=== PATIENT | male | born 1940 | race Caucasian/White ===

== ENCOUNTER → 2016-08-20 | Outpatient (CLI) | payer OTHER, BC ==
[~2016-08-20] VITALS: Ht 182.9 cm; Wt 114.0 kg
[~2016-08-20] MED LIST: ASPCH81 PO; AVDUNK PO; CLB100 PO; CMD75 PO; CRSUNK PO; DLCSR240 PO; DVN80 PO; GABA-113 PO; INDAPAMIDE PO; LATA0.009 OPB; LVTUNK PO; METO50TA7 PO; MULT-506 PO; NIAC1TAB59 PO; TIMO0.5S2 OPB; [UNRECOGNIZED DRUG - OTHER] PO
[2016-08-20 12:40] VITALS: BP 189/76; PULSE 60; Ht 182.9 cm; Wt 114.0 kg
== END | disposition home or self-care (01) ==
LOC: C.NEUR 11:59
PROVIDERS: ATTEND Internal Medicine Pulmonary Disease
DX: G47.30 Sleep apnea, unspecified (principal); I10 Essential (primary) hypertension

== ENCOUNTER → 2017-05-03 | Outpatient (CLI) | payer OTHER, BC ==
[~2017-05-03] VITALS: Ht 182.9 cm; Wt 111.4 kg
[~2017-05-03] MED LIST changes: -METO50TA7 PO; +METO50TA8 PO
[2017-05-03 13:36] VITALS: BP 166/91; PULSE 60; Ht 182.9 cm; Wt 111.4 kg
== END | disposition home or self-care (01) ==
LOC: C.NEUR 13:05
PROVIDERS: ATTEND Physician Assistant Medical
DX: G47.30 Sleep apnea, unspecified (principal); I63.9 Cerebral infarction, unspecified; I10 Essential (primary) hypertension

== ENCOUNTER 2017-08-14 18:26 | Inpatient (IN) | payer OTHER, BC ==
[~2017-08-14] VITALS: Ht 182.9 cm; Wt 109.0 kg
[2017-08-14] MEDS: AVODART~ORDER AWAITING ACTION SCH ×3 (08:00→23:25)
[2017-08-14] MEDS ORDERED: SODIUM CHLORIDE 0.9% 250ML 250 ML IV STA (19:29)
--- NOTE | 2017-08-14 19:30 | EMERGENCY ROOM VISIT NOTE ---
History Report prepared by Jl: Kaiser Lloyd Under the Supervision of: Dr. Ran Aguiar M.D. First contact with patient: 18:51 Chief Complaint: RECTAL BLEEDING Stated Complaint: COLONOSCOPY,POLYPS REMOVED,BLEEDING FROM RECTUM History of Present Illness The patient is a 77 year old male who presents to the Emergency Room with complaints of multiple episodes of rectal bleeding beginning today. The patient states that he had a colonoscopy done three days ago and had four polyps removed. He notes that he was feeling fine afterwards, but had four episodes of rectal bleeding today. He reports that he feels as though he has to have a bowel movement, but notes that whenever he goes, he just passes blood. He also complains of weakness and feeling tired beginning today. He denies any CP, SOB, nausea, vomiting, fever, chills, cough, congestion, abdominal pain, and urinary burning. He reports that he has not experienced any similar symptoms in the past. The patient states that he takes Plavix and aspirin. He notes that he has a past history of two strokes in 2005. He reports that he had his blood pressure medication changed a month ago, and has been having very high blood pressures and headaches since. Source of History: patient Onset: today Position: other (rectum) Quality: other (bleeding) Timing: other (multiple episodes) Associated Symptoms: + headache, + weakness, No fevers, No chills, No cough , No chest pain, No SOB, No nausea, No vomiting, No abdominal pain Note: The patient also complains of feeling fatigued and having high blood pressures over the last month. He also denies any congestion and urinary burning. Review of Systems See HPI for pertinent positives and negatives. A total of ten systems were reviewed and were otherwise negative. Past Medical & Surgical Medical Problems: (1) HTN (hypertension) (2) Lower GI bleed (3) Stroke Surgical Problems: (1) H/O colonoscopy Family History No pertinent family history stated. Social History Smoking Status: Never Smoker Marital Status: Housing Status: lives with family Occupation Status: retired Current/Historical Medications Scheduled Aspirin (Aspirin 81), 81 MG PO DAILY Calcium Carbonate-Vitamin D (Calcium + D), 1 TAB PO DAILY Clopidogrel (Plavix), 75 MG PO Q2D Dutasteride (Avodart), 0.5 MG PO DAILY Gabapentin (Neurontin), 300 MG PO TID Hydrochlorothiazide (Hctz), Unknown Dose PO DAILY Latanoprost (Latanoprost), 1 DROP OPB DAILY Levothyroxine Sodium (Synthroid), 150 MCG PO DAILY Multivitamin (Multivitamin), 1 TAB PO DAILY Omeprazole (Prilosec), 20 MG PO DAILY Rosuvastatin Calcium (Crestor), 10 MG PO DAILY Timolol Maleate (Timolol Gfs 0.5% (Generic For Timoptic-Xe)), 1 DROP OPB DAILY Valsartan (Diovan), 160 MG PO DAILY Allergies Coded Allergies: Fentanyl (Verified Allergy, Mild, ?RASH, 08/14/17) Propofol (Verified Allergy, Unknown, ?RASH, 08/14/17) Physical Exam Vital Signs Date Time Temp Pulse Resp B/P (MAP) Pulse Ox O2 Delivery O2 Flow Rate FiO2 08/14/17 20:23 69 20 194/79 97 Room Air 08/14/17 19:53 62 08/14/17 18:48 36.6 67 18 201/85 97 Room Air Physical Exam GENERAL: Awake, alert, fatigued appearing, in no distress HENT: Normocephalic, atraumatic. Oropharynx unremarkable. Mucous membranes are dry. EYES: Normal conjunctiva. Sclera non-icteric. NECK: Supple. No nuchal rigidity. FROM. No JVD. RESPIRATORY: Clear to auscultation. CARDIAC: Regular rate, normal rhythm. Extremities warm and well perfused. Pulses equal. ABDOMEN: Soft, non-distended. No tenderness to palpation. No rebound or guarding. No masses. RECTAL: To be determined. MUSCULOSKELETAL: Chest examination reveals no tenderness. The back is symmetrical on inspection without obvious abnormality. There is no CVA tenderness to palpation. No joint edema. LOWER EXTREMITIES: Calves are equal size bilaterally and non-tender. No discoloration. Scant lower extremity edema. NEURO: Normal sensorium. No sensory or motor deficits noted. SKIN: No rash or jaundice noted. Medical Decision & Procedures ER Provider Diagnostic Interpretation: Radiology results as stated below per my review and radiologist interpretation: CHEST ONE VIEW PORTABLE FINDINGS: The heart is enlarged. There is basilar interstitial thickening. There are no pleural effusions. There is no lobar consolidation.[ There is no free intraperitoneal air. IMPRESSION: Cardiomegaly with mild basilar interstitial thickening. Electronically signed by: Ebenezer So M.D. 08/14/2017 7:56 PM Dictated Date/Time: 08/14/2017 7:[address] ABD/PELVIS IV CONTRAST ONLY FINDINGS: Lower chest: The heart is normal in size and configuration, without pericardial effusion. The lung bases and pleural spaces are clear. Liver: There is mild hepatic steatosis. No focal masses are visualized. Gallbladder: Contracted Spleen: Normal in size and attenuation. Pancreas: Unremarkable. Adrenal glands: Unremarkable. Kidneys: There are multiple bilateral renal cysts the largest of which measures 9 cm on the left and 5.4 cm in the right Bowel: There are no transition zones to indicate bowel obstruction. There is a hyperdense focus within the rectosigmoid junction. This could represent enteric contents or acute hemorrhage. There is no evidence of acute diverticulitis. By history the appendix is surgically absent. Peritoneum: There is a 29 x 14 mm soft tissue nodule at the level of the umbilicus. There is no free intraperitoneal air. There is no evidence of ascites. Vasculature: There is a 33 mm infrarenal abdominal aortic aneurysm. There are bilateral renal artery stents. Adenopathy: Inguinal lymph nodes are at the upper limits of normal in size. Pelvic viscera: The bladder, and pelvic viscera are unremarkable. 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 IMPRESSION: 1. No evidence of bowel obstruction. No evidence of free air 2. Surgically absent appendix. No evidence of acute diverticulitis 3. 33 mm infrarenal abdominal aortic aneurysm 4. Bilateral renal cysts 5. Hyperdense focus at the level of the rectosigmoid junction. This could represent either acute hemorrhage or enteric contents. Endoscopic correlation could be obtained as deemed clinically indicated 6. Nonspecific 29 x 14 mm soft tissue nodule at the level the umbilicus Electronically signed by: Ebenezer So M.D. 08/14/2017 9:01 PM Dictated Date/Time: 08/14/2017 8:52 PM Laboratory Results 08/14/17 19:43 Red Blood Count 4.93, Mean Corpuscular Volume 92.7, Mean Corpuscular Hemoglobin 31.6, Mean Corpuscular Hemoglobin Concent 34.1, Mean Platelet Volume 10.1, Neutrophils (%) (Auto) 66.3, Lymphocytes (%) (Auto) 16.5, Monocytes (%) (Auto) 12.5, Eosinophils (%) (Auto) 4.3, Basophils (%) (Auto) 0.2, Neutrophils # (Auto ) 5.65, Lymphocytes # (Auto) 1.41, Monocytes # (Auto) 1.07, Eosinophils # (Auto ) 0.37, Basophils # (Auto) 0.02 08/14/17 19:43 Test 08/14/17 19:43 White Blood Count 8.54 K/uL (4.8-10.8) Red Blood Count 4.93 M/uL (4.7-6.1) Hemoglobin 15.6 g/dL (14.0-18.0) Hematocrit 45.7 % (42-52) Mean Corpuscular Volume 92.7 fL (80-100) Mean Corpuscular Hemoglobin 31.6 pg (25-34) Mean Corpuscular Hemoglobin Concent 34.1 g/dl (32-36) Platelet Count 212 K/uL (130-400) Mean Platelet Volume 10.1 fL (7.4-10.4) Neutrophils (%) (Auto) 66.3 % Lymphocytes (%) (Auto) 16.5 % Monocytes (%) (Auto) 12.5 % Eosinophils (%) (Auto) 4.3 % Basophils (%) (Auto) 0.2 % Neutrophils # (Auto) 5.65 K/uL (1.4-6.5) Lymphocytes # (Auto) 1.41 K/uL (1.2-3.4) Monocytes # (Auto) 1.07 K/uL (0.11-0.59) Eosinophils # (Auto) 0.37 K/uL (0-0.5) Basophils # (Auto) 0.02 K/uL (0-0.2) RDW Standard Deviation 45.5 fL (36.4-46.3) RDW Coefficient of Variation 13.3 % (11.5-14.5) Immature Granulocyte % (Auto) 0.2 % Immature Granulocyte # (Auto) 0.02 K/uL (0.00-0.02) Prothrombin Time 10.7 SECONDS (9.0-12.0) Prothromb Time International Ratio 1.0 (0.9-1.1) Anion Gap 8.0 mmol/L (3-11) Est Creatinine Clear Calc Drug Dose 62.6 ml/min Estimated GFR () 63.3 Estimated GFR (Non- 54.7 BUN/Creatinine Ratio 11.0 (10-20) Lactic Acid Level 1.4 mmol/L (0.4-2.0) Calcium Level 9.2 mg/dl (8.5-10.1) Magnesium Level 1.9 mg/dl (1.8-2.4) Total Bilirubin 0.7 mg/dl (0.2-1) Direct Bilirubin 0.2 mg/dl (0-0.2) Aspartate Amino Transf (AST/SGOT) 22 U/L (15-37) Alanine Aminotransferase (ALT/SGPT) 27 U/L (12-78) Alkaline Phosphatase 105 U/L (45-117) Total Protein 7.7 gm/dl (6.4-8.2) Albumin 3.9 gm/dl (3.4-5.0) Lipase 111 U/L (73-393) Date/Time Source Procedure Growth Status 08/14/17 20:00 Stool C.difficile Toxin B Gene (PCR) - Final No C. difficile toxin B gene detected Complete Laboratory results reviewed by me Medications Administered Medications (Trade) Dose Ordered Sig/Yanelis Route Start Time Stop Time Status Last Admin Dose Admin Sodium Chloride 250 ml @ 999 mls/hr Q16M STAT IV 08/14/17 19:29 08/14/17 19:44 DC 08/14/17 19:29 999 MLS/HR Gabapentin (Neurontin Cap) 300 mg TID PO 08/14/17 21:00 09/13/17 20:59 08/14/17 23:42 300 MG ECG Per My Interpretation Indication: weakness Rate (beats per minute): 62 Rhythm: normal sinus Findings: no acute ischemic change, no ectopy, other (Left ventricular hypertrophy with repolarization abnormality) ED Course 1919: The patient was evaluated in room B3. A complete history and physical exam was performed. 2003: I performed a rectal exam on the patient. His exam shows gross red blood per rectum, no hemorrhoids, and no melena. 2022: Upon reexamination, the patient was stable. I discussed the test results and treatment plan with him. Discussed the patient's case with Dr. Barahona - Hospitalist, APRIL. The patient will be evaluated for further management. Medical Decision I reviewed the patient's past medical history, medications, and the nursing notes as described above. Differential diagnosis: Etiologies such as diverticulosis, AVM, coagulopathy, colitis, inflammatory bowel disease, malignancy, Danna-Crews tear, esophagitis, peptic ulcer disease , variceal bleed, gastritis, epistaxis, fissure, hemorrhoids, as well as others were entertained. The patient is a 77-year-old gentleman with a past medical history of prior stroke with no residual deficits on Plavix and aspirin, hypertension who presents emergency department with red blood per rectum starting this morning after having a colonoscopy on with multiple colonic polyps removed, performed by Pravin Parkinson, per hpi. Of note the patient reports that he noticed the bleeding first this morning however thought it would resolve and so went out to lunch with his family to red lobster for his birthday but then had additional episodes and so he came to the ED. On arrival patient is fatigued appearing but no acute distress, afebrile stable vital signs. On exam the patient has gross red blood per rectum without melena and no appreciable hemorrhoids. H/H equals 15/45. Chemistry without any evidence of acidosis. Lactate within normal limits. CT abdomen pelvis ordered and pending. Given the patient's HCT of 45 we will continue to monitor closely given his rectal bleeding to initiate transfusion if needed. Patient remaining hemodynamically and clinically stable. Case discussed with [facility] admitting team who will evaluate the patient for admission. Medication Reconcilliation Current Medication List: was personally reviewed by me Blood Pressure Screening Patient's blood pressure: Elevated blood pressure Elevated blood pressure will be monitored by hospitalist. Consults Time Called: 2019 Consulting Physician: Dr. Drummond - Mileist, [facility] Returned Call: 2022 I discussed the patient with Dr. Drummond. He will evaluate the patient for further treatment. Impression Primary Impression: GI bleed Scribe Attestation The scribe's documentation has been prepared under my direction and personally reviewed by me in its entirety. I confirm that the note above accurately reflects all work, treatment, procedures, and medical decision making performed by me. Departure Information Dispostion Being Evaluated By Hospitalist Atul Mayorga MD (PCP) Patient Instructions My [facility]
[2017-08-14] MEDS ORDERED: OPTIRAY 320 IV PRN (19:45)
[2017-08-14] MEDS ORDERED: LEVO150T PO (19:52)
[2017-08-14] MEDS ORDERED: CRS/10 PO (19:52)
[2017-08-14] MEDS ORDERED: ASPI-435 PO (19:52)
[2017-08-14] MEDS ORDERED: DUTA0.5C PO (19:52)
[2017-08-14] MEDS ORDERED: DVN/160 PO (19:52)
[2017-08-14] MEDS ORDERED: XLTOPS OPB (19:52)
[2017-08-14] MEDS ORDERED: TMPXEOPS OPB (19:52)
[2017-08-14] MEDS ORDERED: CLOP1TAB15 PO (19:53)
[2017-08-14] MEDS ORDERED: HYDR12.56 PO (19:53)
[2017-08-14] MEDS ORDERED: CALC600T9 PO (19:53)
[2017-08-14] MEDS ORDERED: OMEP20CA9 PO (19:53)
[2017-08-14 19:55] LABS: BASO % 0.2 %; BASO ABS # 0.02 K/uL (0-0.2); EOS % 4.3 %; EOS ABS # 0.37 K/uL (0-0.5); HEMATOCRIT 45.7 % (42-52); HEMOGLOBIN 15.6 g/dL (14.0-18.0); IG# 0.02 K/uL (0.00-0.02); LYMPH % 16.5 %; LYMPH ABS # 1.41 K/uL (1.2-3.4); MEAN CELL VOLUME 92.7 fL (80-100); MEAN CORPUSCULAR HEMOGLOBIN 31.6 pg (25-34); MEAN CORPUSCULAR HGB CONC 34.1 g/dl (32-36); MEAN PLATELET VOLUME 10.1 fL (7.4-10.4); MONO % 12.5 %; MONO ABS # 1.07 K/uL (0.11-0.59); NEUT % 66.3 %; NEUT ABS # 5.65 K/uL (1.4-6.5); PLATELET COUNT 212 K/uL (130-400); RED CELL DISTRIBUTION WIDTH CV 13.3 % (11.5-14.5); RED CELL DISTRIBUTION WIDTH SD 45.5 fL (36.4-46.3); WHITE BLOOD COUNT 8.54 K/uL (4.8-10.8)
--- NOTE | 2017-08-14 19:57 | DIAGNOSTIC IMAGING REPORT ---
CHEST ONE VIEW PORTABLE CLINICAL HISTORY: Pain, radiating to the abdomen. COMPARISON STUDY: June 2006 FINDINGS: The heart is enlarged. There is basilar interstitial thickening. There are no pleural effusions. There is no lobar consolidation.[ There is no free intraperitoneal air. IMPRESSION: Cardiomegaly with mild basilar interstitial thickening. Electronically signed by: Ebenezer So M.D. 08/14/2017 7:56 PM Dictated Date/Time: 08/14/2017 7:55 PM
[2017-08-14 20:16] LABS: ALBUMIN 3.9 gm/dl (3.4-5.0); CALCIUM 9.2 mg/dl (8.5-10.1); CREATININE 1.26 mg/dl (0.60-1.40); POTASSIUM 3.2 mmol/L (3.5-5.1); TOTAL PROTEIN 7.7 gm/dl (6.4-8.2)
[2017-08-14] MEDS ORDERED: ACETAMINOPHEN 325 MG TAB PO PRN (21:00)
[2017-08-14] MEDS ORDERED: ONDANSETRON INJ 2 MG/ML 2 ML VIAL IV PRN (21:00)
--- NOTE | 2017-08-14 21:03 | DIAGNOSTIC IMAGING REPORT ---
CT ABD/PELVIS IV CONTRAST ONLY CLINICAL HISTORY: Hematochezia COMPARISON STUDY: None. TECHNIQUE: Following the IV administration of 92 mL of Optiray-320, CT scan of the abdomen and pelvis was performed from the lung bases to the proximal femurs. Images are reviewed in the axial, sagittal, and coronal planes. IV contrast was administered without complication. A dose lowering technique was utilized adhering to the principles of ALARA. CT DOSE: 1105.62 mGy.cm FINDINGS: Lower chest: The heart is normal in size and configuration, without pericardial effusion. The lung bases and pleural spaces are clear. Liver: There is mild hepatic steatosis. No focal masses are visualized. Gallbladder: Contracted Spleen: Normal in size and attenuation. Pancreas: Unremarkable. Adrenal glands: Unremarkable. Kidneys: There are multiple bilateral renal cysts the largest of which measures 9 cm on the left and 5.4 cm in the right Bowel: There are no transition zones to indicate bowel obstruction. There is a hyperdense focus within the rectosigmoid junction. This could represent enteric contents or acute hemorrhage. There is no evidence of acute diverticulitis. By history the appendix is surgically absent. Peritoneum: There is a 29 x 14 mm soft tissue nodule at the level of the umbilicus. There is no free intraperitoneal air. There is no evidence of ascites. Vasculature: There is a 33 mm infrarenal abdominal aortic aneurysm. There are bilateral renal artery stents. Adenopathy: Inguinal lymph nodes are at the upper limits of normal in size. Pelvic viscera: The bladder, and pelvic viscera are unremarkable. 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 IMPRESSION: 1. No evidence of bowel obstruction. No evidence of free air 2. Surgically absent appendix. No evidence of acute diverticulitis 3. 33 mm infrarenal abdominal aortic aneurysm 4. Bilateral renal cysts 5. Hyperdense focus at the level of the rectosigmoid junction. This could represent either acute hemorrhage or enteric contents. Endoscopic correlation could be obtained as deemed clinically indicated 6. Nonspecific 29 x 14 mm soft tissue nodule at the level the umbilicus Electronically signed by: Ebenezer So M.D. 08/14/2017 9:01 PM Dictated Date/Time: 08/14/2017 8:52 PM
--- NOTE | 2017-08-14 21:14 | History and Physical ---
History & Physical Date & Time of Service: Aug 14, 2017 at 21:06 Chief Complaint: Colonoscopy,Polyps Removed,Bleeding From Rectum Primary Care Physician: Atul Dickson MD History of Present Illness Source: patient, hospital records, other 77 y/o M Hx CVA, carotid disease, HTN, HPL, hypothyroidism, BPH, glaucoma. The pt had a colonoscopy with removal of 4 polyps 3 days prior. He had no symptoms until today when he began passing bright red blood per rectum. He has had 4 or more BMs. He feels as though he has to defecate and then only passes blood. He describes some weakness. He denies any lightheadedness, SOB, CP, nausea/ vomiting, abdominal pain or fevers. Initial Hb is within normal limits. Labs are otherwise notable for a low potassium. Past Medical/Surgical History 1) L carotid stenosis - stented 2) CVA - impaired peripheral vision in the L eye - CVA occurred to to plaque dislodgement following carotid stenting 3) Hypothyroidism 4) BPH 5) Glaucoma 6) HTN 7) HPL 8) Colon polyps 9) GI bleed following polypectomy 08/2017 10) CAD - states he mat have had a silent IL in 2005 - cath in 2009 on record reports nonocclusive disease excepting 90% stenosis of branch vessel which was not amenable to stenting 11) Renal artery stenosis Surgery: 1) L carotid stent 2) BL renal artery stenting 3) Thyroidectomy Family History Father owing to colon CA age 53 Mother due to an IL age 68 Social History Quit smoking 3 years ago but now vapes instead - 40+ pack yr history - does not drink - retired from heavy equipment operation Smoking Status: Former Smoker Smokeless Tobacco Use: Yes Alcohol Use: none Marital Status: Occupational Status: retired Immunizations History of Influenza Vaccine: Yes History of Tetanus Vaccine?: yes,< 10 yrs.unknown when History of Pneumococcal: Unknown History of Hepatitis B Vaccine: Yes Allergies Coded Allergies: Fentanyl (Verified Allergy, Mild, ?RASH, 08/14/17) Propofol (Verified Allergy, Unknown, ?RASH, 08/14/17) Home Medications Scheduled Aspirin (Aspirin 81), 81 MG PO DAILY Calcium Carbonate-Vitamin D (Calcium + D), 1 TAB PO DAILY Clopidogrel (Plavix), 75 MG PO Q2D Dutasteride (Avodart), 0.5 MG PO DAILY Gabapentin (Neurontin), 300 MG PO TID Hydrochlorothiazide (Hctz), Unknown Dose PO DAILY Latanoprost (Latanoprost), 1 DROP OPB DAILY Levothyroxine Sodium (Synthroid), 150 MCG PO DAILY Multivitamin (Multivitamin), 1 TAB PO DAILY Omeprazole (Prilosec), 20 MG PO DAILY Rosuvastatin Calcium (Crestor), 10 MG PO DAILY Timolol Maleate (Timolol Gfs 0.5% (Generic For Timoptic-Xe)), 1 DROP OPB DAILY Valsartan (Diovan), 160 MG PO DAILY Review of Systems Constitutional: No fever, No chills, No sweats Eyes: No worsening of vision ENT: No hearing loss, No unusual epistaxis, No nasal symptoms Respiratory: No cough, No sputum, No wheezing Cardiovascular: No chest pain, No orthopnea, No PND Abdomen: + GI bleeding, No pain, No nausea, No vomiting Genitourinary - Male: No hematuria, No dysuria Neurologic: + problem reported (chronic impaired vision in L eye), No memory loss, No weakness Psychiatric: No depression symptoms Endocrine: No fatigue Hematologic / Lymphatic: No abnormal bleeding/bruising Physical Exam Vital Signs Date Time Temp Pulse Resp B/P (MAP) Pulse Ox O2 Delivery O2 Flow Rate FiO2 08/14/17 19:53 62 08/14/17 18:48 36.6 67 18 201/85 97 Room Air General Appearance: WD/WN, no apparent distress Head: normocephalic Eyes: normal inspection ENT: normal ENT inspection, pharynx normal Neck: supple, no JVD Respiratory/Chest: chest non-tender, lungs clear, normal breath sounds Cardiovascular: regular rate, rhythm Abdomen/GI: normal bowel sounds, non tender, soft Back: normal inspection, no CVA tenderness Extremities/Musculoskelatal: normal inspection, no calf tenderness, normal capillary refill 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, no motor/sensory deficits, alert, oriented x 3 Skin: normal color Diagnostics Laboratory Results Results Past 24 Hours Test 08/14/17 19:43 Range/Units White Blood Count 8.54 4.8-10.8 K/uL Red Blood Count 4.93 4.7-6.1 M/uL Hemoglobin 15.6 14.0-18.0 g/dL Hematocrit 45.7 42-52 % Mean Corpuscular Volume 92.7 80-100 fL Mean Corpuscular Hemoglobin 31.6 25-34 pg Mean Corpuscular Hemoglobin Concent 34.1 32-36 g/dl Platelet Count 212 130-400 K/uL Mean Platelet Volume 10.1 7.4-10.4 fL Neutrophils (%) (Auto) 66.3 % Lymphocytes (%) (Auto) 16.5 % Monocytes (%) (Auto) 12.5 % Eosinophils (%) (Auto) 4.3 % Basophils (%) (Auto) 0.2 % Neutrophils # (Auto) 5.65 1.4-6.5 K/uL Lymphocytes # (Auto) 1.41 1.2-3.4 K/uL Monocytes # (Auto) 1.07 0.11-0.59 K/uL Eosinophils # (Auto) 0.37 0-0.5 K/uL Basophils # (Auto) 0.02 0-0.2 K/uL RDW Standard Deviation 45.5 36.4-46.3 fL RDW Coefficient of Variation 13.3 11.5-14.5 % Immature Granulocyte % (Auto) 0.2 % Immature Granulocyte # (Auto) 0.02 0.00-0.02 K/uL Prothrombin Time 10.7 9.0-12.0 SECONDS Prothromb Time International Ratio 1.0 0.9-1.1 Sodium Level 142 136-145 mmol/L Potassium Level 3.2 3.5-5.1 mmol/L Chloride Level 104 98-107 mmol/L Carbon Dioxide Level 30 21-32 mmol/L Anion Gap 8.0 3-11 mmol/L Blood Urea Nitrogen 14 7-18 mg/dl Creatinine 1.26 0.60-1.40 mg/dl Est Creatinine Clear Calc Drug Dose 62.6 ml/min Estimated GFR () 63.3 Estimated GFR (Non- 54.7 BUN/Creatinine Ratio 11.0 10-20 Random Glucose 109 70-99 mg/dl Lactic Acid Level 1.4 0.4-2.0 mmol/L Calcium Level 9.2 8.5-10.1 mg/dl Magnesium Level 1.9 1.8-2.4 mg/dl Total Bilirubin 0.7 0.2-1 mg/dl Direct Bilirubin 0.2 0-0.2 mg/dl Aspartate Amino Transf (AST/SGOT) 22 15-37 U/L Alanine Aminotransferase (ALT/SGPT) 27 12-78 U/L Alkaline Phosphatase 105 45-117 U/L Total Protein 7.7 6.4-8.2 gm/dl Albumin 3.9 3.4-5.0 gm/dl Lipase 111 73-393 U/L Microbiology Results 08/14/17 C.difficile Toxin B Gene (PCR), Received Pending Impression Assessment and Plan 77 y/o M Hx CVA, carotid disease, HTN, HPL, hypothyroidism, BPH, glaucoma. The pt had a colonoscopy with removal of 4 polyps 3 days prior. He had no symptoms until today when he began passing bright red blood per rectum. He has had 4 or more BMs. He feels as though he has to defecate and then only passes blood. He describes some weakness. He denies any lightheadedness, SOB, CP, nausea/ vomiting, abdominal pain or fevers. Initial Hb is within normal limits. Labs are otherwise notable for a low potassium. 1) Lower GI bleed follows removal of 4 polyps 3 days earlier. No anemia is present - pt is asymptomatic. We will monitor overnight with serial Hbs. We will prep the pt for potential colonoscopy if needed following GI evaluation AM. He will be kept NPO and we have held his ASA and Plavix. 2) Low K - IVF and electrolyte replacement provided. 3) HTN/HPL - can continue Diovan and HCTZ 4) CAD and carotid disease - we should restart his ASA and Plavix at the earliest possible time. We will continue Crestor 5) BPH - cont Dutasteride 6) Hypothyroidism - cont Synthroid 7) Glaucoma - continue prescribed meds Full code - SCDs Total time for this admit including review of labs, meds, imaging, records - discussion with pt. family and ER attending - 38 min Resuscitation Status VTE Prophylaxis Will order VTE Prophylaxis: Yes Reason for no VTE drug order: Treatment not indicated Reason no Mechanical VTE Order: Treatment not indicated, Contraindicated
[2017-08-14] MEDS ORDERED: IV FLUIDS COMPLETED PRN (21:15)
[2017-08-14 22:20] VITALS: BP 177/77; PULSE 57; TEMP 36.8; Ht 182.9 cm; Wt 109.0 kg
[2017-08-14] MEDS ORDERED: POTASSIUM CHLORIDE PWD 20 MEQ PACK PO ONE (22:45)
[2017-08-14] MEDS ORDERED: LAVAGE SOLUTION 4000ML PO SCH (23:00)
[2017-08-14] MEDS: D5NSS + 20MEQ KCL 1,000 ML IV SCH (23:42)
[2017-08-14] MEDS: GABAPENTIN 300 MG CAP PO SCH (23:42)
[2017-08-15] VITALS (9 sets, daily range): BP systolic 157–190; BP diastolic 54–92; PULSE 62–106; TEMP 36.4–37.1; O2SAT 93–98
[2017-08-15 04:40] LABS: CALCIUM 7.9 mg/dl (8.5-10.1); CREATININE 1.21 mg/dl (0.60-1.40); POTASSIUM 3.6 mmol/L (3.5-5.1)
[2017-08-15] MEDS: LEVOTHYROXINE 150 MCG TAB PO SCH (06:11)
[2017-08-15] MEDS: AVODART~ORDER AWAITING ACTION SCH ×3 (06:11→23:29)
[2017-08-15] MEDS: VALSARTAN 80 MG TAB PO SCH (07:40)
[2017-08-15] MEDS: TIMOLOL GFS 0.5% OPH SOLN 74 DROPS/5 ML BTL OPB SCH (07:40)
[2017-08-15] MEDS: D5NSS + 20MEQ KCL 1,000 ML IV SCH (07:40)
[2017-08-15] MEDS: ROSUVASTATIN CALCIUM 10 MG TAB PO SCH (07:41)
[2017-08-15] MEDS: GABAPENTIN 300 MG CAP PO SCH ×3 (07:41→20:51)
[2017-08-15] MEDS: PANTOprazole SOD 40 MG TAB PO SCH (07:41)
--- NOTE | 2017-08-15 12:26 | Gastrointestinal Consultation ---
Gastrointestinal Consultation Date of Consultation: Aug 15, 2017 Attending Physician: Gurmeet Barahona MD Consulting Physician: Emil Briggs MD Reason for Consultation: Post polypectomy bleed History of Present Illness Patient is a 77 year old male on Plavix every other day and 81mg aspirin daily for a hx of CVA with carotid stenting, admitted with a one day hx of painless rectal bleeding. He reports having a colonoscopy on in [place] for a hx of colon polyps. Four polyps were removed. He states that his plavix and aspirin were not held prior to the procedure. He reports multiple episodes of BRBPR that started yesterday afternoon. He denies any abdominal pain, n/v. Blood work shows a Hgb of 13.1 (down from 15.6). CT scan shows a ? hemorrhage at the R/S junction. He has been started on a bowel prep, but has had approximately half of this, and stopped on his own this morning due to significant diarrhea. Last glass was at [address] scan: IMPRESSION: 1. No evidence of bowel obstruction. No evidence of free air 2. Surgically absent appendix. No evidence of acute diverticulitis 3. 33 mm infrarenal abdominal aortic aneurysm 4. Bilateral renal cysts 5. Hyperdense focus at the level of the rectosigmoid junction. This could represent either acute hemorrhage or enteric contents. Endoscopic correlation could be obtained as deemed clinically indicated 6. Nonspecific 29 x 14 mm soft tissue nodule at the level the umbilicus Past Medical/Surgical History Medical Problems: (1) GI bleed Status: Acute Past Medical History: HTN, CVA, Hypothyroidism Past Surgical History: carotid stenting, mastoid surgery Social History Smoking Status: Former Smoker Marital Status: Housing Status: lives with family Occupation Status: retired Allergies Coded Allergies: Fentanyl (Verified Allergy, Mild, ?RASH, 08/14/17) Propofol (Verified Allergy, Unknown, ?RASH, 08/14/17) Current Medications Home Meds and Scripts Medications Dose Route/Sig Max Daily Dose Days Date Category Dose Instructions Hctz (Hydrochlorothiazide) 12.5 Mg Cap Unknown Dose PO DAILY 08/14/17 Reported Unsure of the dose, but believes it to be a low dose. Calcium + D (Calcium Carbonate-Vitamin D) 1 Tab Tab 1 Tab PO DAILY 08/14/17 Reported Plavix (Clopidogrel Bisulfate) 75 Mg Tab 75 Mg PO Q2D 08/14/17 Reported Prilosec (Omeprazole) 20 Mg Cap 20 Mg PO DAILY 08/14/17 Reported Crestor (Rosuvastatin Calcium) 10 Mg Tab 10 Mg PO DAILY 08/14/17 Reported Avodart (Dutasteride) 0.5 Mg Cap 0.5 Mg PO DAILY 08/14/17 Reported Synthroid (Levothyroxine Sodium) 150 Mcg Tab 150 Mcg PO DAILY 08/14/17 Reported Latanoprost 37 Drops/2.5 Ml Soln 1 Drop OPB DAILY 08/14/17 Reported Timolol Gfs 0.5% (Generic For Timoptic-Xe) (Timolol Maleate) 74 Drops/5 Ml Soln 1 Drop OPB DAILY 08/14/17 Reported Aspirin 81 (Aspirin) 81 Mg Tab 81 Mg PO DAILY 08/14/17 Reported Diovan (Valsartan) 160 Mg Tab 160 Mg PO DAILY 08/14/17 Reported Neurontin (Gabapentin) 300 Mg Cap 300 Mg PO TID 08/13/09 Reported Multivitamin (Multivitamins) Tab 1 Tab PO DAILY 06/07/06 Reported Review of Systems Constitutional: No fever, No chills Eyes: No worsening of vision, No eye pain ENT: No hearing loss, No sore throat, No trouble swallowing Respiratory: No cough, No wheezing, No shortness of breath Cardiac: No chest pain Abdomen: + see HPI Musculoskeletal: No joint pain, No muscle pain Male : No dysuria Psych: No problem reported Endo: No excessive thirst, No excessive urination Skin: No rash, No itch Physical Exam Date Time Temp Pulse Resp B/P (MAP) Pulse Ox O2 Delivery O2 Flow Rate FiO2 08/15/17 08:00 Room Air 08/15/17 07:56 36.7 67 18 187/89 (121) 93 08/15/17 05:30 37.1 66 16 164/54 (90) 95 Room Air 08/15/17 01:41 62 173/82 (112) 08/15/17 00:24 36.8 66 20 190/81 (117) 95 Room Air 08/15/17 00:00 Room Air 08/14/17 22:20 36.8 57 16 177/77 Room Air 08/14/17 21:30 65 18 184/84 97 Room Air 08/14/17 20:23 69 20 194/79 97 Room Air 08/14/17 19:53 62 08/14/17 18:48 36.6 67 18 201/85 97 Room Air General Appearance: no apparent distress Eyes: normal inspection Neck: supple Respiratory/Chest: lungs clear, normal breath sounds, no respiratory distress Cardiovascular: regular rate, rhythm, no edema Abdomen: normal bowel sounds, soft, + tenderness (mild, diffuse) Extremities: non-tender, + pedal edema (trace) Neurologic/Psych: alert, normal mood/affect Skin: normal color, no jaundice, warm/dry Laboratory Results Last 24 Hours Test 08/14/17 19:43 08/14/17 23:14 08/15/17 03:55 08/15/17 07:00 White Blood Count 8.54 K/uL Red Blood Count 4.93 M/uL Hemoglobin 15.6 g/dL 15.1 g/dL 13.0 g/dL Hematocrit 45.7 % Mean Corpuscular Volume 92.7 fL Mean Corpuscular Hemoglobin 31.6 pg Mean Corpuscular Hemoglobin Concent 34.1 g/dl Platelet Count 212 K/uL Mean Platelet Volume 10.1 fL Neutrophils (%) (Auto) 66.3 % Lymphocytes (%) (Auto) 16.5 % Monocytes (%) (Auto) 12.5 % Eosinophils (%) (Auto) 4.3 % Basophils (%) (Auto) 0.2 % Neutrophils # (Auto) 5.65 K/uL Lymphocytes # (Auto) 1.41 K/uL Monocytes # (Auto) 1.07 K/uL Eosinophils # (Auto) 0.37 K/uL Basophils # (Auto) 0.02 K/uL RDW Standard Deviation 45.5 fL RDW Coefficient of Variation 13.3 % Immature Granulocyte % (Auto) 0.2 % Immature Granulocyte # (Auto) 0.02 K/uL Prothrombin Time 10.7 SECONDS Prothromb Time International Ratio 1.0 Sodium Level 142 mmol/L 142 mmol/L Potassium Level 3.2 mmol/L 3.6 mmol/L Chloride Level 104 mmol/L 104 mmol/L Carbon Dioxide Level 30 mmol/L 31 mmol/L Anion Gap 8.0 mmol/L 7.0 mmol/L Blood Urea Nitrogen 14 mg/dl 16 mg/dl Creatinine 1.26 mg/dl 1.21 mg/dl Est Creatinine Clear Calc Drug Dose 62.6 ml/min 65.2 ml/min Estimated GFR () 63.3 66.5 Estimated GFR (Non- 54.7 57.4 BUN/Creatinine Ratio 11.0 13.5 Random Glucose 109 mg/dl 113 mg/dl Lactic Acid Level 1.4 mmol/L Calcium Level 9.2 mg/dl 7.9 mg/dl Magnesium Level 1.9 mg/dl 1.7 mg/dl Total Bilirubin 0.7 mg/dl Direct Bilirubin 0.2 mg/dl Aspartate Amino Transf (AST/SGOT) 22 U/L Alanine Aminotransferase (ALT/SGPT) 27 U/L Alkaline Phosphatase 105 U/L Total Protein 7.7 gm/dl Albumin 3.9 gm/dl Lipase 111 U/L Urine Color YELLOW Urine Appearance CLEAR Urine pH 7.5 Urine Specific [place] 1.026 Urine Protein NEG Urine Glucose (UA) NEG Urine Ketones NEG Urine Occult Blood NEG Urine Nitrite NEG Urine Bilirubin NEG Urine Urobilinogen NEG Urine Leukocyte Esterase NEG Test 08/15/17 08:14 Hemoglobin 13.1 g/dL Impression Patient is a 77 year old male with a hx of CVA and carotid stenting, on plavix and aspirin, s/p colonoscopy with 4 polyps removed this past . Plavix and aspirin were not held prior to the procedure. Admitted with rectal bleeding that started on Tuesday. Plan Patient stopped drinking the colon prep on his own after only about half the bottle consumed. Will proceed with colonoscopy vs flex sig for evaluation of post polypectomy bleed. Hgb is stable at 13 currently. Would continue to monitor and transfuse if needed. Attg add: I interviewed and examined pt, reviewed chart and labs. Pt on dual anti plt therapy admit with rectal bleeding after cscopy + polypectomy last week. Hypertensive, not anemic, bleeding has stopped. CT showed ? hyperdense lesion at recto sigmoid. Prior cscopy report not available. Post-polyp bleed -- Will plan cscopy today.
[2017-08-15] MEDS ORDERED: LIDOCAINE HCL 2% 2 ML VIAL (20MG/ML) ONE (15:11)
[2017-08-15] MEDS ORDERED: PROPOFOL IV EMULSION 10 MG/ML 20 ML VIAL ONE ×2 (15:11→15:58)
--- NOTE | 2017-08-15 15:48 | Hospitalist Progress Note ---
Hospitalist Progress Note Date of Service Aug 15, 2017. Subjective Pt evaluation today including: conversation w/ patient, conversation w/ family , physical exam, chart review, lab review, review of studies, conversation w/ crop consultant ([facility]), review of inpatient medication list Patient reports continued BRBPR since admission. Hemoglobin stable. Slight drop from admission but may be element of dilution. Patient is for a colonoscopy today to assess bleed. Was only able to tolerate about half the prep Per discussion with and patient, it appears that he was not instructed to hold his Plavix/ASA prior to colonoscopy and did have 4 polyps removed Initial colonoscopy was performed in [place]. Discussed his blood pressures. states he was on multiple medications that were taken off but does report his BP has been trending back up and complaining of headaches. May benefit from returning to previous regimen. Will use PRN Hydralazine at this point. Constitutional: No fever, No chills, No fatigue Respiratory: No cough, No shortness of breath Cardiovascular: No chest pain Abdomen: + pain (only with deep palpation), + GI bleeding (BRBPR), No nausea , No vomiting Musculoskeletal: No swelling, No calf pain Male : No dysuria Medications Current Inpatient Medications Medications (Trade) Dose Ordered Sig/Yanelis Route Start Time Stop Time Status Last Admin Dose Admin Ioversol (Optiray 320) 100 ml UD PRN IV 08/14/17 19:45 08/18/17 19:44 Acetaminophen (Tylenol Tab) 650 mg Q4H PRN PO 08/14/17 21:00 09/13/17 20:59 Ondansetron HCl (Zofran Inj) 4 mg Q6H PRN IV 08/14/17 21:00 09/13/17 20:59 Gabapentin (Neurontin Cap) 300 mg TID PO 08/14/17 21:00 09/13/17 20:59 08/15/17 07:41 300 MG Latanoprost (Xalatan Oph Soln) 1 drops HS OPB 08/15/17 21:00 09/14/17 20:59 Levothyroxine Sodium (Synthroid Tab) 150 mcg DAILYBB PO 08/15/17 06:30 09/14/17 06:29 08/15/17 06:11 150 MCG Rosuvastatin Calcium (Crestor Tab) 10 mg DAILY PO 08/15/17 09:00 8/8/18 08:59 08/15/17 07:41 10 MG Timolol Maleate (Timoptic-Xe 0.5% Oph Soln) 1 drops DAILY OPB 08/15/17 09:00 09/14/17 08:59 08/15/17 07:40 1 DROPS Valsartan (Diovan Tab) 160 mg DAILY PO 08/15/17 09:00 09/14/17 08:59 08/15/17 07:40 160 MG Miscellaneous Information (Order Awaiting Action) 1 ea QS N/A 08/14/17 08:00 09/13/17 07:59 Pantoprazole Sodium (Protonix Tab) 40 mg QAM PO 08/15/17 09:00 09/14/17 08:59 08/15/17 07:41 40 MG Miscellaneous (Iv Fluids Completed) 1 ea PRN PRN N/A 08/14/17 21:15 08/14/18 21:14 Potassium Chloride/Dextrose/ Sod Cl 1,000 ml @ 100 mls/hr Q10H IV 08/14/17 22:45 08/15/17 18:44 08/15/17 07:40 100 MLS/HR Objective Vital Signs Date Time Temp Pulse Resp B/P (MAP) Pulse Ox O2 Delivery O2 Flow Rate FiO2 08/15/17 15:12 36.6 59 20 203/91 (128) 99 Room Air 08/15/17 11:51 36.6 64 16 189/86 (120) 98 08/15/17 08:00 Room Air 08/15/17 07:56 36.7 67 18 187/89 (121) 93 08/15/17 05:30 37.1 66 16 164/54 (90) 95 Room Air 08/15/17 01:41 62 173/82 (112) 08/15/17 00:24 36.8 66 20 190/81 (117) 95 Room Air 08/15/17 00:00 Room Air 08/14/17 22:20 36.8 57 16 177/77 Room Air 08/14/17 21:30 65 18 184/84 97 Room Air 08/14/17 20:23 69 20 194/79 97 Room Air 08/14/17 19:53 62 08/14/17 18:48 36.6 67 18 201/85 97 Room Air Physical Exam General Appearance: WD/WN, no apparent distress Eyes: sclerae normal ENT: hearing grossly normal Neck: supple, no JVD, trachea midline Respiratory/Chest: lungs clear, normal breath sounds, no respiratory distress, no accessory muscle use Cardiovascular: regular rate, rhythm, no gallop, no murmur Abdomen: normal bowel sounds, non tender, soft Extremities: no pedal edema, no calf tenderness Neurologic/Psychiatric: alert, oriented x 3 Skin: normal color, warm/dry Laboratory Results Last 24 Hours Test 08/14/17 19:43 08/14/17 23:14 08/15/17 03:55 08/15/17 07:00 White Blood Count 8.54 K/uL Red Blood Count 4.93 M/uL Hemoglobin 15.6 g/dL 15.1 g/dL 13.0 g/dL Hematocrit 45.7 % Mean Corpuscular Volume 92.7 fL Mean Corpuscular Hemoglobin 31.6 pg Mean Corpuscular Hemoglobin Concent 34.1 g/dl Platelet Count 212 K/uL Mean Platelet Volume 10.1 fL Neutrophils (%) (Auto) 66.3 % Lymphocytes (%) (Auto) 16.5 % Monocytes (%) (Auto) 12.5 % Eosinophils (%) (Auto) 4.3 % Basophils (%) (Auto) 0.2 % Neutrophils # (Auto) 5.65 K/uL Lymphocytes # (Auto) 1.41 K/uL Monocytes # (Auto) 1.07 K/uL Eosinophils # (Auto) 0.37 K/uL Basophils # (Auto) 0.02 K/uL RDW Standard Deviation 45.5 fL RDW Coefficient of Variation 13.3 % Immature Granulocyte % (Auto) 0.2 % Immature Granulocyte # (Auto) 0.02 K/uL Prothrombin Time 10.7 SECONDS Prothromb Time International Ratio 1.0 Sodium Level 142 mmol/L 142 mmol/L Potassium Level 3.2 mmol/L 3.6 mmol/L Chloride Level 104 mmol/L 104 mmol/L Carbon Dioxide Level 30 mmol/L 31 mmol/L Anion Gap 8.0 mmol/L 7.0 mmol/L Blood Urea Nitrogen 14 mg/dl 16 mg/dl Creatinine 1.26 mg/dl 1.21 mg/dl Est Creatinine Clear Calc Drug Dose 62.6 ml/min 65.2 ml/min Estimated GFR () 63.3 66.5 Estimated GFR (Non- 54.7 57.4 BUN/Creatinine Ratio 11.0 13.5 Random Glucose 109 mg/dl 113 mg/dl Lactic Acid Level 1.4 mmol/L Calcium Level 9.2 mg/dl 7.9 mg/dl Magnesium Level 1.9 mg/dl 1.7 mg/dl Total Bilirubin 0.7 mg/dl Direct Bilirubin 0.2 mg/dl Aspartate Amino Transf (AST/SGOT) 22 U/L Alanine Aminotransferase (ALT/SGPT) 27 U/L Alkaline Phosphatase 105 U/L Total Protein 7.7 gm/dl Albumin 3.9 gm/dl Lipase 111 U/L Urine Color YELLOW Urine Appearance CLEAR Urine pH 7.5 Urine Specific [place] 1.026 Urine Protein NEG Urine Glucose (UA) NEG Urine Ketones NEG Urine Occult Blood NEG Urine Nitrite NEG Urine Bilirubin NEG Urine Urobilinogen NEG Urine Leukocyte Esterase NEG Test 08/15/17 08:14 Hemoglobin 13.1 g/dL Assessment and Plan 77 y/o M Hx CVA, carotid disease, HTN, HPL, hypothyroidism, BPH, glaucoma. The pt had a colonoscopy with removal of 4 polyps 3 days prior. He had no symptoms until today when he began passing bright red blood per rectum. He has had 4 or more BMs. He feels as though he has to defecate and then only passes blood. He describes some weakness. He denies any lightheadedness, SOB, CP, nausea/ vomiting, abdominal pain or fevers. Initial Hb is within normal limits. Labs are otherwise notable for a low potassium. Lower GI Bleed - BRBPR - Likely Polypectomy Bleed: - Patient had colonoscopy with polypectomy x 4 on August 11 - per patient report he was not instructed to stop his Plavix/ASA prior to this procedure - reporting he is still having rectal bleeding - Hgb remainin stable - initial drop my be dilutional but will continue to monitor - no indication for transfusion at this time - Colonoscopy planned for today - pending at this time Hypokalemia: RESOLVED HTN/HLD: - Has been hypertensive - reports he was on multiple medications and has been weaned overtime but states his BP has been climbing and c/o headaches - likely will benefit from further control - Diovan 160 mg daily; HCTZ on hold - will need to confirm dose; Hydralazine PRN - Crestor 10 mg daily CAD and Carotid Disease: - Continue to hold ASA/Plavix at this time and will continue this at earliest point BPH: STABLE - Avodart 0.5 mg daily - non-formulary and would need brought in Hypothyroidism: STABLE - Synthroid 150 mcg daily Glaucoma: STABLE - Lantanoprost HS/Timolol daily DVT Prophylaxis: SCDs due to bleed Code Status: FULL RESUSCITATION Disposition: Pending colonoscopy findings - likely home tomorrow Continued [facility] stay due to: multiple IV medications needed, other (monitor blood counts) Discharge planning: home
[2017-08-15] MEDS ORDERED: PHENYLEPHRINE HCL INJ 10 MG/ML VIAL ONE (15:58)
--- NOTE | 2017-08-15 16:01 | GI REPORT ---
Patient Name: Saleem Rodriges Procedure Date: 08/15/2017 3:28 PM Date of : 1940 Admit Type: Inpatient Age: 77 Gender: Male Attending MD: Emil Briggs MD Procedure: Colonoscopy Providers: Emil Briggs MD Referring MD: Referred Marin Pond Indications: Treatment of bleeding from polypectomy site Medicines: See the Anesthesia note for documentation of the administered medications Complications: No immediate complications. Estimated Blood Loss: Estimated blood loss: none. Procedure: Pre-Anesthesia Assessment: - ASA Grade Assessment: III - A patient with severe systemic disease. After I obtained informed consent, the scope was passed under direct vision. Throughout the procedure, the patient's blood pressure, pulse, and oxygen saturations were monitored continuously. The Scope was introduced through the anus and advanced to the ileocecal valve. The colonoscopy was performed without difficulty. The patient tolerated the procedure well. The quality of the bowel preparation was poor. Findings: The perianal and digital rectal examinations were normal. There was a large amount of dark red blood and clot in the rectum and recto sigmoid colon. There was no active bleeding. There was a very large amount of thick viscous yellow green stool in the descending colon and throughout the remainder of the stool. The prior polypectomy sites could not be identified due to the poor quality of the prep. Source of bleeding was not visualized. Impression: - Preparation of the colon was poor. - Source of bleeding and polypectomy sites not visualized. Dark red blood in distal colon and yellow stool proximally, suggesting that bleeding originated in rectosigmoid colon. Recommendation: - Discharge patient to floor. - Continue to follow Hgb and transfuse for Hgb <7. - Remain on clears overnight and give additional laxative prep. Would consider repeat colonoscopy pending clinical course, if pt has large hgb drop or continued bleeding. Emil Briggs M.D. Emil Briggs MD 08/15/2017 4:01:17 PM This report has been signed electronically. Note Initiated On: 08/15/2017 3:28 PM Number of Addenda: 0 I attest to the content of the Intraoperative Record and orders documented therein, exceptions below {[id number]}
--- NOTE | 2017-08-15 17:03 | Anesthesiology Progress Note ---
Anesthesia Post Op Note Date & Time Aug 15, 2017 at 17:03 Vital Signs Pain Intensity: 2 Vital Signs Past 12 Hours Date Time Temp Pulse Resp B/P (MAP) Pulse Ox O2 Delivery O2 Flow Rate FiO2 08/15/17 16:30 56 18 176/90 (118) 98 Room Air 08/15/17 16:15 55 18 150/66 (94) 97 Room Air 08/15/17 16:00 52 14 126/50 (75) 97 Room Air 08/15/17 15:12 36.6 59 20 203/91 (128) 99 Room Air 08/15/17 11:51 36.6 64 16 189/86 (120) 98 08/15/17 08:00 Room Air 08/15/17 07:56 36.7 67 18 187/89 (121) 93 08/15/17 05:30 37.1 66 16 164/54 (90) 95 Room Air Notes Mental Status: alert / awake / arousable, participated in evaluation Pt Amnestic to Procedure: Yes Nausea / Vomiting: adequately controlled Pain: adequately controlled Airway Patency, RR, SpO2: stable & adequate BP & HR: stable & adequate Hydration State: stable & adequate Anesthetic Complications: no major complications apparent
[2017-08-15] MEDS: HydrALAZINE HCL 20 MG/ML VIAL IV. PRN (17:26)
[2017-08-15] MEDS ORDERED: BISACODYL 5 MG TABEC PO ONE (18:00)
[2017-08-15 18:33] LABS: HEMATOCRIT 37.9 % (42-52)
[2017-08-15] MEDS ORDERED: LAVAGE SOLUTION 4000ML PO SCH (20:00)
[2017-08-15] MEDS: LATANOPROST 0.005% OP SOLN 2.5 ML BTL OPB SCH (20:55)
[2017-08-16] VITALS (8 sets, daily range): BP systolic 152–202; BP diastolic 66–80; PULSE 86–96; TEMP 36.4–36.8; O2SAT 97–98
[2017-08-16] MEDS: LEVOTHYROXINE 150 MCG TAB PO SCH (06:10)
[2017-08-16 07:00] LABS: HEMATOCRIT 32.7 % (42-52); HEMOGLOBIN 11.2 g/dL (14.0-18.0); MEAN CELL VOLUME 92.4 fL (80-100); MEAN CORPUSCULAR HEMOGLOBIN 31.6 pg (25-34); MEAN CORPUSCULAR HGB CONC 34.3 g/dl (32-36); MEAN PLATELET VOLUME 9.5 fL (7.4-10.4); PLATELET COUNT 198 K/uL (130-400); RED CELL DISTRIBUTION WIDTH CV 13.5 % (11.5-14.5); RED CELL DISTRIBUTION WIDTH SD 44.9 fL (36.4-46.3); WHITE BLOOD COUNT 8.37 K/uL (4.8-10.8)
[2017-08-16] MEDS: AVODART~ORDER AWAITING ACTION SCH ×2 (07:37→16:34)
[2017-08-16] MEDS: TIMOLOL GFS 0.5% OPH SOLN 74 DROPS/5 ML BTL OPB SCH (07:47)
[2017-08-16] MEDS: PANTOprazole SOD 40 MG TAB PO SCH (07:47)
[2017-08-16] MEDS: VALSARTAN 80 MG TAB PO SCH (07:47)
[2017-08-16] MEDS: ROSUVASTATIN CALCIUM 10 MG TAB PO SCH (07:47)
[2017-08-16] MEDS: GABAPENTIN 300 MG CAP PO SCH ×3 (07:47→21:42)
--- NOTE | 2017-08-16 11:56 | Gastroenterology Progress Note ---
Progress Note Date of Service: Aug 16, 2017 Subjective Pt evaluation today including: conversation w/ patient, physical exam, chart review, lab review, review of studies, review of inpatient medication list 77 year old male admitted with a post polypectomy bleed. Colonoscopy was attempted yesterday, however it was unable to be completed due to a large amount of retained stool. Patient has been drinking a bowel prep overnight, but has only had about half of the bottle, and his stools are a very muddy maroon color. He denies any abdominal pain, n/v. Hgb is a little lower today at 11.2. Review of Systems Constitutional: No fever, No chills Eyes: No worsening of vision ENT: No hearing loss, No sore throat, No trouble swallowing Respiratory: No cough, No shortness of breath Cardiac: No chest pain Abdomen: + see HPI Musculoskeletal: No joint pain, No muscle pain Male : No dysuria Neuro: No weakness, No balance problems Psych: No problem reported Endo: No excessive thirst, No excessive urination Skin: No rash, No itch Medications Current Inpatient Medications Medications (Trade) Dose Ordered Sig/Yanelis Route Start Time Stop Time Status Last Admin Dose Admin Ioversol (Optiray 320) 100 ml UD PRN IV 08/14/17 19:45 08/18/17 19:44 Acetaminophen (Tylenol Tab) 650 mg Q4H PRN PO 08/14/17 21:00 09/13/17 20:59 Ondansetron HCl (Zofran Inj) 4 mg Q6H PRN IV 08/14/17 21:00 09/13/17 20:59 Gabapentin (Neurontin Cap) 300 mg TID PO 08/14/17 21:00 09/13/17 20:59 08/16/17 07:47 300 MG Latanoprost (Xalatan Oph Soln) 1 drops HS OPB 08/15/17 21:00 09/14/17 20:59 08/15/17 20:55 1 DROPS Levothyroxine Sodium (Synthroid Tab) 150 mcg DAILYBB PO 08/15/17 06:30 09/14/17 06:29 08/16/17 06:10 150 MCG Rosuvastatin Calcium (Crestor Tab) 10 mg DAILY PO 08/15/17 09:00 09/14/17 08:59 08/16/17 07:47 10 MG Timolol Maleate (Timoptic-Xe 0.5% Oph Soln) 1 drops DAILY OPB 08/15/17 09:00 09/14/17 08:59 08/16/17 07:47 1 DROPS Valsartan (Diovan Tab) 160 mg DAILY PO 08/15/17 09:00 09/14/17 08:59 08/16/17 07:47 160 MG Miscellaneous Information (Order Awaiting Action) 1 ea QS N/A 08/14/17 08:00 09/13/17 07:59 Pantoprazole Sodium (Protonix Tab) 40 mg QAM PO 08/15/17 09:00 09/14/17 08:59 08/16/17 07:47 40 MG Miscellaneous (Iv Fluids Completed) 1 ea PRN PRN N/A 08/14/17 21:15 08/14/18 21:14 Hydralazine HCl (HydrALAZINE INJ) 10 mg Q6 PRN IV. 08/15/17 15:45 09/14/17 15:44 08/15/17 17:26 10 MG Objective Vital Signs Date Time Temp Pulse Resp B/P (MAP) Pulse Ox O2 Delivery O2 Flow Rate FiO2 08/16/17 08:01 36.4 88 17 163/78 (106) 98 Room Air 08/16/17 08:00 97 Room Air 08/16/17 00:17 36.7 86 20 157/73 (101) 97 Room Air 08/16/17 00:00 Room Air 08/15/17 22:26 62 157/78 (104) 97 Room Air 08/15/17 18:30 36.5 62 18 182/92 (122) 97 Room Air 08/15/17 17:20 36.4 62 18 190/86 (120) 97 Room Air 08/15/17 16:30 56 18 176/90 (118) 98 Room Air 08/15/17 16:15 55 18 150/66 (94) 97 Room Air 08/15/17 16:00 52 14 126/50 (75) 97 Room Air 08/15/17 16:00 97 Room Air 08/15/17 15:12 36.6 59 20 203/91 (128) 99 Room Air 08/15/17 11:51 36.6 64 16 189/86 (120) 98 Physical Exam General Appearance: no apparent distress Eyes: normal inspection ENT: hearing grossly normal Neck: supple Respiratory/Chest: lungs clear, no respiratory distress Cardiovascular: regular rate, rhythm Abdomen: normal bowel sounds, soft, + tenderness (mild LLQ tenderness) Extremities: no pedal edema Neurologic/Psych: alert Skin: no jaundice Laboratory Results Last 24 Hours Test 08/15/17 18:02 08/15/17 18:27 08/16/17 06:34 Hemoglobin 13.0 g/dL 11.2 g/dL Hematocrit 37.9 % 32.7 % Bedside Glucose 170 mg/dl White Blood Count 8.37 K/uL Red Blood Count 3.54 M/uL Mean Corpuscular Volume 92.4 fL Mean Corpuscular Hemoglobin 31.6 pg Mean Corpuscular Hemoglobin Concent 34.3 g/dl RDW Standard Deviation 44.9 fL RDW Coefficient of Variation 13.5 % Platelet Count 198 K/uL Mean Platelet Volume 9.5 fL Assessment and Plan 77 year old male admitted with a post polypectomy bleed -patient will continue to drink the bowel prep today -likely colonoscopy tomorrow, if bleeding persists -Ok for clear liquids today, NPO after midnight please -continue to monitor blood counts - transfuse if needed Attg add: I interviewed and examined pt, reviewed chart and labs. Pt slowly drinking prep, passing brown-red stools. Hgb 11, decreased from 13. BP stable. Will consider repeat attempt at csocpy tomorrow if continues to bleed.
--- NOTE | 2017-08-16 13:29 | Hospitalist Progress Note ---
Hospitalist Progress Note Date of Service Aug 16, 2017. Subjective Pt evaluation today including: conversation w/ patient, physical exam, chart review, lab review, review of studies, review of inpatient medication list Patient reports that he has been having frequent BMs that are still bloody/ maroon. States he felt that he needed to move his bowels x 2 but nothing came out. However hasn't actually had a clear bowel movement yet Hgb did drop down since yesterday. Reports generalized fatigue but no CP or SOB. Vitals remaining stable. Fatigue may be multifactorial given limited oral intake and frequent bowel movements. Will continue to trend Hgb. No indication for transfusion at this time. Constitutional: + fatigue, No fever, No chills Respiratory: No cough, No shortness of breath Cardiovascular: No chest pain, No palpitations Abdomen: + diarrhea, + GI bleeding, No pain, No nausea, No vomiting Musculoskeletal: No swelling, No calf pain Male : No dysuria Medications Current Inpatient Medications Medications (Trade) Dose Ordered Sig/Yanelis Route Start Time Stop Time Status Last Admin Dose Admin Ioversol (Optiray 320) 100 ml UD PRN IV 08/14/17 19:45 08/18/17 19:44 Acetaminophen (Tylenol Tab) 650 mg Q4H PRN PO 08/14/17 21:00 09/13/17 20:59 Ondansetron HCl (Zofran Inj) 4 mg Q6H PRN IV 08/14/17 21:00 09/13/17 20:59 Gabapentin (Neurontin Cap) 300 mg TID PO 08/14/17 21:00 09/13/17 20:59 08/16/17 07:47 300 MG Latanoprost (Xalatan Oph Soln) 1 drops HS OPB 08/15/17 21:00 09/14/17 20:59 08/15/17 20:55 1 DROPS Levothyroxine Sodium (Synthroid Tab) 150 mcg DAILYBB PO 08/15/17 06:30 09/14/17 06:29 08/16/17 06:10 150 MCG Rosuvastatin Calcium (Crestor Tab) 10 mg DAILY PO 08/15/17 09:00 09/14/17 08:59 08/16/17 07:47 10 MG Timolol Maleate (Timoptic-Xe 0.5% Oph Soln) 1 drops DAILY OPB 08/15/17 09:00 09/14/17 08:59 08/16/17 07:47 1 DROPS Valsartan (Diovan Tab) 160 mg DAILY PO 08/15/17 09:00 09/14/17 08:59 08/16/17 07:47 160 MG Miscellaneous Information (Order Awaiting Action) 1 ea QS N/A 08/14/17 08:00 09/13/17 07:59 Pantoprazole Sodium (Protonix Tab) 40 mg QAM PO 08/15/17 09:00 09/14/17 08:59 08/16/17 07:47 40 MG Miscellaneous (Iv Fluids Completed) 1 ea PRN PRN N/A 08/14/17 21:15 08/14/18 21:14 Hydralazine HCl (HydrALAZINE INJ) 10 mg Q6 PRN IV. 08/15/17 15:45 09/14/17 15:44 08/15/17 17:26 10 MG Objective Vital Signs Date Time Temp Pulse Resp B/P (MAP) Pulse Ox O2 Delivery O2 Flow Rate FiO2 08/16/17 08:01 36.4 88 17 163/78 (106) 98 Room Air 08/16/17 08:00 97 Room Air 08/16/17 00:17 36.7 86 20 157/73 (101) 97 Room Air 08/16/17 00:00 Room Air 08/15/17 22:26 62 157/78 (104) 97 Room Air 08/15/17 18:30 36.5 62 18 182/92 (122) 97 Room Air 08/15/17 17:20 36.4 62 18 190/86 (120) 97 Room Air 08/15/17 16:30 56 18 176/90 (118) 98 Room Air 08/15/17 16:15 55 18 150/66 (94) 97 Room Air 08/15/17 16:00 52 14 126/50 (75) 97 Room Air 08/15/17 16:00 97 Room Air 08/15/17 15:12 36.6 59 20 203/91 (128) 99 Room Air Physical Exam General Appearance: WD/WN, no apparent distress Eyes: sclerae normal ENT: hearing grossly normal Neck: supple, no JVD, trachea midline Respiratory/Chest: lungs clear, no respiratory distress, no accessory muscle use Cardiovascular: regular rate, rhythm, no gallop, no murmur Abdomen: normal bowel sounds, non tender, soft Extremities: no pedal edema Neurologic/Psychiatric: alert Skin: normal color, warm/dry Laboratory Results Last 24 Hours Test 08/15/17 18:02 08/15/17 18:27 08/16/17 06:34 Hemoglobin 13.0 g/dL 11.2 g/dL Hematocrit 37.9 % 32.7 % Bedside Glucose 170 mg/dl White Blood Count 8.37 K/uL Red Blood Count 3.54 M/uL Mean Corpuscular Volume 92.4 fL Mean Corpuscular Hemoglobin 31.6 pg Mean Corpuscular Hemoglobin Concent 34.3 g/dl RDW Standard Deviation 44.9 fL RDW Coefficient of Variation 13.5 % Platelet Count 198 K/uL Mean Platelet Volume 9.5 fL Assessment and Plan 77 y/o M Hx CVA, carotid disease, HTN, HPL, hypothyroidism, BPH, glaucoma. The pt had a colonoscopy with removal of 4 polyps 3 days prior. He had no symptoms until today when he began passing bright red blood per rectum. He has had 4 or more BMs. He feels as though he has to defecate and then only passes blood. He describes some weakness. He denies any lightheadedness, SOB, CP, nausea/ vomiting, abdominal pain or fevers. Initial Hb is within normal limits. Labs are otherwise notable for a low potassium. Lower GI Bleed - BRBPR - Likely Polypectomy Bleed: - Patient had colonoscopy with polypectomy x 4 on August 11 - per patient report he was not instructed to stop his Plavix/ASA prior to this procedure - reporting he is still having rectal bleeding and hasn't been able to fully complete bowel prep and will continue to use through the day - plan is to possibly undergo colonoscopy tomorrow to hopefully visualize better as last colonoscopy was difficult due to poor prep - did request HIM of outpatient colonoscopy to see location of polyps, size, or other useful information - Hgb did slightly drop this AM and will recheck this afternoon - no indication for transfusion at this time and will monitor - GI following - appreciate assistance Hypokalemia: RESOLVED HTN/HLD: - Has been hypertensive - reports he was on multiple medications and has been weaned overtime but states his BP has been climbing and c/o headaches - likely will benefit from further control - Diovan 160 mg daily; HCTZ on hold - will need to confirm dose; Hydralazine PRN - Crestor 10 mg daily CAD and Carotid Disease: - Continue to hold ASA/Plavix at this time and will continue this at earliest point BPH: STABLE - Avodart 0.5 mg daily - non-formulary and would need brought in Hypothyroidism: STABLE - Synthroid 150 mcg daily Glaucoma: STABLE - Lantanoprost HS/Timolol daily DVT Prophylaxis: SCDs due to bleed Code Status: FULL RESUSCITATION Disposition: Will observe counts today with possible colonoscopy tomorrow Continued [facility] stay due to: other (hemoglobin trending down; colonoscopy planned) Discharge planning: home
[2017-08-16] MEDS ORDERED: POLYETHYLENE (MIRALAX) 17 GM PACK PO ONE (16:00)
[2017-08-16 16:11] LABS: HEMATOCRIT 32.5 % (42-52); HEMOGLOBIN 10.9 g/dL (14.0-18.0)
[2017-08-16] MEDS: HydrALAZINE HCL 20 MG/ML VIAL IV. PRN (18:21)
[2017-08-16] MEDS: LATANOPROST 0.005% OP SOLN 2.5 ML BTL OPB SCH (21:45)
[2017-08-17] MEDS: LEVOTHYROXINE 150 MCG TAB PO SCH (06:04)
[2017-08-17 06:43] LABS: HEMATOCRIT 32.4 % (42-52); HEMOGLOBIN 10.6 g/dL (14.0-18.0); MEAN CELL VOLUME 92.6 fL (80-100); MEAN CORPUSCULAR HEMOGLOBIN 30.3 pg (25-34); MEAN CORPUSCULAR HGB CONC 32.7 g/dl (32-36); MEAN PLATELET VOLUME 9.2 fL (7.4-10.4); PLATELET COUNT 194 K/uL (130-400); RED CELL DISTRIBUTION WIDTH CV 13.8 % (11.5-14.5); RED CELL DISTRIBUTION WIDTH SD 46.8 fL (36.4-46.3); WHITE BLOOD COUNT 6.12 K/uL (4.8-10.8)
[2017-08-17] MEDS: AVODART~ORDER AWAITING ACTION SCH ×2 (07:03)
[2017-08-17 07:27] LABS: CALCIUM 8.4 mg/dl (8.5-10.1); CREATININE 1.13 mg/dl (0.60-1.40); POTASSIUM 2.8 mmol/L (3.5-5.1)
[2017-08-17] MEDS: VALSARTAN 80 MG TAB PO SCH (07:27)
[2017-08-17] MEDS: GABAPENTIN 300 MG CAP PO SCH ×3 (07:28→20:49)
[2017-08-17] MEDS: ROSUVASTATIN CALCIUM 10 MG TAB PO SCH (07:28)
[2017-08-17] MEDS: TIMOLOL GFS 0.5% OPH SOLN 74 DROPS/5 ML BTL OPB SCH (07:28)
[2017-08-17] MEDS: PANTOprazole SOD 40 MG TAB PO SCH (07:28)
[2017-08-17 07:38] VITALS: BP 162/68; PULSE 80; TEMP 36.8; O2SAT 97
[2017-08-17] MEDS ORDERED: POTASSIUM CHLORIDE 20 MEQ TABCR PO STA ×2 (07:54→14:32)
[2017-08-17 08:00] VITALS: O2SAT 97
--- NOTE | 2017-08-17 08:55 | Clinical Documentation Query ---
CLINICAL DOCUMENTATION QUERY Ms. SAUCEDO, In your clinical opinion is this patient being managed for: ( x ) Acute blood loss anemia ( ) Not Agree ( ) Other explanation of clinical findings (No explanation is considered a No Response) ( ) Unable to determine ( ) Need to Discuss (Phone CDS or qliq) (No discussion is considered a No Response) The medical record reflects the following clinical findings, treatment, and risk factors. Clinical Indicators: 77 yo male with recent colonoscopy with polypectomy. Now presenting with rectal bleeding. Initial Hgb 15.6/Hct 45.7 dropping to 10.6/32.4. Treatment: GI consult, colonoscopy performed however prep poor thus considering repeat of colonoscopy, IV fluids, protonix Risk Factors: recent colonoscopy with polypectomy Please clarify and document your clinical opinion in the progress notes and discharge summary. Terms such as "probable", "suspected", "likely", "questionable", "possible", or "still to be ruled out" are acceptable. IF IN AGREEMENT, YOU MUST DOCUMENT ABOVE DIAGNOSTIC STATEMENT IN DAILY PROGRESS NOTES AND DISCHARGE SUMMARY. This document is not part of the patient's record. Thank You, Kalie Ramos RN [phone]
[2017-08-17] MEDS ORDERED: SOD PHOSPHATE/SOD BIPHOSPHATE ENEMA 132 ML BTL PR STA (09:59)
[2017-08-17] MEDS ORDERED: SOD PHOSPHATE/SOD BIPHOSPHATE ENEMA 132 ML BTL ONE (10:25)
--- NOTE | 2017-08-17 10:46 | Gastroenterology Progress Note ---
Progress Note Date of Service: Aug 17, 2017 Subjective Pt evaluation today including: conversation w/ patient, physical exam, chart review, lab review, review of studies Patient feeling well today. He finished his Colyte prep from yesterday and took another prep with miralax overnight. Last BM was about 9pm last night per patient. Still not quite clear, but better. Some "braxton" sediment. Potassium low this morning at 2.8 and this has since been supplemented. Patient denies any abdominal pain, n/v. Review of Systems Constitutional: No fever, No chills Eyes: No worsening of vision, No eye pain ENT: No hearing loss Respiratory: No cough, No shortness of breath Cardiac: No chest pain Abdomen: + see HPI Musculoskeletal: No joint pain, No muscle pain Male : No dysuria Neuro: No problem reported Psych: No problem reported Endo: No excessive thirst, No excessive urination Skin: No rash, No itch Medications Current Inpatient Medications Medications (Trade) Dose Ordered Sig/Yanelis Route Start Time Stop Time Status Last Admin Dose Admin Ioversol (Optiray 320) 100 ml UD PRN IV 08/14/17 19:45 08/18/17 19:44 Acetaminophen (Tylenol Tab) 650 mg Q4H PRN PO 08/14/17 21:00 09/13/17 20:59 Ondansetron HCl (Zofran Inj) 4 mg Q6H PRN IV 08/14/17 21:00 09/13/17 20:59 Gabapentin (Neurontin Cap) 300 mg TID PO 08/14/17 21:00 09/13/17 20:59 08/17/17 07:28 300 MG Latanoprost (Xalatan Oph Soln) 1 drops HS OPB 08/15/17 21:00 09/14/17 20:59 08/16/17 21:45 1 DROPS Levothyroxine Sodium (Synthroid Tab) 150 mcg DAILYBB PO 08/15/17 06:30 09/14/17 06:29 08/17/17 06:04 150 MCG Rosuvastatin Calcium (Crestor Tab) 10 mg DAILY PO 08/15/17 09:00 09/14/17 08:59 08/17/17 07:28 10 MG Timolol Maleate (Timoptic-Xe 0.5% Oph Soln) 1 drops DAILY OPB 08/15/17 09:00 09/14/17 08:59 08/17/17 07:28 1 DROPS Valsartan (Diovan Tab) 160 mg DAILY PO 08/15/17 09:00 09/14/17 08:59 08/17/17 07:27 160 MG Miscellaneous Information (Order Awaiting Action) 1 ea QS N/A 08/14/17 08:00 09/13/17 07:59 Pantoprazole Sodium (Protonix Tab) 40 mg QAM PO 08/15/17 09:00 09/14/17 08:59 08/17/17 07:28 40 MG Miscellaneous (Iv Fluids Completed) 1 ea PRN PRN N/A 08/14/17 21:15 08/14/18 21:14 Hydralazine HCl (HydrALAZINE INJ) 10 mg Q6 PRN IV. 08/15/17 15:45 09/14/17 15:44 08/16/17 18:21 10 MG Objective Vital Signs Date Time Temp Pulse Resp B/P (MAP) Pulse Ox O2 Delivery O2 Flow Rate FiO2 08/17/17 08:00 97 Room Air 08/17/17 07:38 36.8 80 18 162/68 (99) 97 Room Air 08/17/17 00:00 Room Air 08/16/17 23:29 36.7 91 18 152/80 (104) 97 Room Air 08/16/17 22:05 96 169/66 (100) 08/16/17 18:18 94 202/76 (118) 08/16/17 16:29 36.8 92 16 175/68 (103) 98 Room Air 08/16/17 16:00 98 Room Air Physical Exam General Appearance: no apparent distress Eyes: normal inspection ENT: hearing grossly normal Neck: supple Respiratory/Chest: lungs clear, no respiratory distress Cardiovascular: regular rate, rhythm Abdomen: normal bowel sounds, non tender, soft Extremities: no pedal edema Neurologic/Psych: alert Skin: no jaundice, warm/dry Laboratory Results Last 24 Hours Test 08/16/17 15:56 08/17/17 06:29 Hemoglobin 10.9 g/dL 10.6 g/dL Hematocrit 32.5 % 32.4 % White Blood Count 6.12 K/uL Red Blood Count 3.50 M/uL Mean Corpuscular Volume 92.6 fL Mean Corpuscular Hemoglobin 30.3 pg Mean Corpuscular Hemoglobin Concent 32.7 g/dl RDW Standard Deviation 46.8 fL RDW Coefficient of Variation 13.8 % Platelet Count 194 K/uL Mean Platelet Volume 9.2 fL Sodium Level 143 mmol/L Potassium Level 2.8 mmol/L Chloride Level 107 mmol/L Carbon Dioxide Level 30 mmol/L Anion Gap 7.0 mmol/L Blood Urea Nitrogen 7 mg/dl Creatinine 1.13 mg/dl Est Creatinine Clear Calc Drug Dose 69.8 ml/min Estimated GFR () 72.3 Estimated GFR (Non- 62.4 BUN/Creatinine Ratio 6.1 Random Glucose 128 mg/dl Calcium Level 8.4 mg/dl Assessment and Plan 77 year old male admitted with a post polypectomy bleed -Will give an enema now -Keep NPO -would recheck potassium -colonoscopy to be attempted again today -continue to monitor blood counts - transfuse if needed Attg add: I interviewed and examined pt, reviewed chart and labs. Agree with above, plan to proceed with scope as scheduled.
[2017-08-17 11:56] LABS: HEMATOCRIT 31.4 % (42-52); HEMOGLOBIN 10.7 g/dL (14.0-18.0)
[2017-08-17 12:36] LABS: CALCIUM 8.6 mg/dl (8.5-10.1); CREATININE 1.1 mg/dl (0.60-1.40); POTASSIUM 3.3 mmol/L (3.5-5.1)
--- NOTE | 2017-08-17 13:25 | Hospitalist Progress Note ---
Hospitalist Progress Note Date of Service Aug 17, 2017. Subjective Pt evaluation today including: conversation w/ patient, physical exam, chart review, lab review, review of inpatient medication list Patient seen and evaluated. No acute events overnight. Since admission Hgb has slowly trended down but stabilized at this point. Remains asymptomatic with changes. Had some fatigue yesterday that has since resolved. Still attempting adequate bowel prep as his stool is still brown colored. Patient feels that the bleeding is less. When talking with the yesterday she felt it has slowed down some too. Reviewed colonoscopy report that was brought in by the . Appears he had ascending colon and sigmoid colon polyps removed, diverticula, and internal hemorrhoids Hopefully another colonoscopy will be performed today. Constitutional: No fever, No chills, No fatigue Respiratory: No cough, No shortness of breath Cardiovascular: No chest pain, No palpitations Abdomen: + GI bleeding, No pain, No nausea, No vomiting Musculoskeletal: No swelling, No calf pain Male : No dysuria Medications Current Inpatient Medications Medications (Trade) Dose Ordered Sig/Yanelis Route Start Time Stop Time Status Last Admin Dose Admin Ioversol (Optiray 320) 100 ml UD PRN IV 08/14/17 19:45 08/18/17 19:44 Acetaminophen (Tylenol Tab) 650 mg Q4H PRN PO 08/14/17 21:00 09/13/17 20:59 Ondansetron HCl (Zofran Inj) 4 mg Q6H PRN IV 08/14/17 21:00 09/13/17 20:59 Gabapentin (Neurontin Cap) 300 mg TID PO 08/14/17 21:00 09/13/17 20:59 08/17/17 07:28 300 MG Latanoprost (Xalatan Oph Soln) 1 drops HS OPB 08/15/17 21:00 09/14/17 20:59 08/16/17 21:45 1 DROPS Levothyroxine Sodium (Synthroid Tab) 150 mcg DAILYBB PO 08/15/17 06:30 09/14/17 06:29 08/17/17 06:04 150 MCG Rosuvastatin Calcium (Crestor Tab) 10 mg DAILY PO 08/15/17 09:00 09/14/17 08:59 08/17/17 07:28 10 MG Timolol Maleate (Timoptic-Xe 0.5% Oph Soln) 1 drops DAILY OPB 08/15/17 09:00 09/14/17 08:59 08/17/17 07:28 1 DROPS Valsartan (Diovan Tab) 160 mg DAILY PO 08/15/17 09:00 09/14/17 08:59 08/17/17 07:27 160 MG Miscellaneous Information (Order Awaiting Action) 1 ea QS N/A 08/14/17 08:00 09/13/17 07:59 Pantoprazole Sodium (Protonix Tab) 40 mg QAM PO 08/15/17 09:00 09/14/17 08:59 08/17/17 07:28 40 MG Miscellaneous (Iv Fluids Completed) 1 ea PRN PRN N/A 08/14/17 21:15 08/14/18 21:14 Hydralazine HCl (HydrALAZINE INJ) 10 mg Q6 PRN IV. 08/15/17 15:45 09/14/17 15:44 08/16/17 18:21 10 MG Objective Vital Signs Date Time Temp Pulse Resp B/P (MAP) Pulse Ox O2 Delivery O2 Flow Rate FiO2 08/17/17 08:00 97 Room Air 08/17/17 07:38 36.8 80 18 162/68 (99) 97 Room Air 08/17/17 00:00 Room Air 08/16/17 23:29 36.7 91 18 152/80 (104) 97 Room Air 08/16/17 22:05 96 169/66 (100) 08/16/17 18:18 94 202/76 (118) 08/16/17 16:29 36.8 92 16 175/68 (103) 98 Room Air 08/16/17 16:00 98 Room Air Physical Exam General Appearance: WD/WN, no apparent distress Eyes: sclerae normal ENT: hearing grossly normal Neck: supple, no JVD, trachea midline Respiratory/Chest: lungs clear, normal breath sounds, no respiratory distress, no accessory muscle use Cardiovascular: regular rate, rhythm Abdomen: normal bowel sounds, non tender, soft Extremities: no pedal edema, no calf tenderness Neurologic/Psychiatric: alert Skin: normal color, warm/dry Laboratory Results Last 24 Hours Test 08/16/17 15:56 08/17/17 06:29 08/17/17 11:40 Hemoglobin 10.9 g/dL 10.6 g/dL 10.7 g/dL Hematocrit 32.5 % 32.4 % 31.4 % White Blood Count 6.12 K/uL Red Blood Count 3.50 M/uL Mean Corpuscular Volume 92.6 fL Mean Corpuscular Hemoglobin 30.3 pg Mean Corpuscular Hemoglobin Concent 32.7 g/dl RDW Standard Deviation 46.8 fL RDW Coefficient of Variation 13.8 % Platelet Count 194 K/uL Mean Platelet Volume 9.2 fL Sodium Level 143 mmol/L 144 mmol/L Potassium Level 2.8 mmol/L 3.3 mmol/L Chloride Level 107 mmol/L 108 mmol/L Carbon Dioxide Level 30 mmol/L 30 mmol/L Anion Gap 7.0 mmol/L 6.0 mmol/L Blood Urea Nitrogen 7 mg/dl 7 mg/dl Creatinine 1.13 mg/dl 1.10 mg/dl Est Creatinine Clear Calc Drug Dose 69.8 ml/min 71.7 ml/min Estimated GFR () 72.3 74.7 Estimated GFR (Non- 62.4 64.4 BUN/Creatinine Ratio 6.1 6.1 Random Glucose 128 mg/dl 109 mg/dl Calcium Level 8.4 mg/dl 8.6 mg/dl Assessment and Plan 77 y/o M Hx CVA, carotid disease, HTN, HPL, hypothyroidism, BPH, glaucoma. The pt had a colonoscopy with removal of 4 polyps 3 days prior. He had no symptoms until today when he began passing bright red blood per rectum. He has had 4 or more BMs. He feels as though he has to defecate and then only passes blood. He describes some weakness. He denies any lightheadedness, SOB, CP, nausea/ vomiting, abdominal pain or fevers. Initial Hb is within normal limits. Labs are otherwise notable for a low potassium. Lower GI Bleed with Acute Blood Loss Anemia- BRBPR - Likely Polypectomy Bleed: - Patient had colonoscopy with polypectomy x 4 on August 11 - per patient report he was not instructed to stop his Plavix/ASA prior to this procedure - still not having clear stool with prep, planning to utilize enema and re-attempt at colonoscopy today - Hgb is steadily dropping but has stabilized at this time; remains asymptomatic ; no indication for transfusion at this time - GI following - appreciate assistance - discussed with Alyssa AGUIRRE for above plan Hypokalemia: - K at 2.8 today and given 40 mEq KCl with recheck 3.3 - will continue to monitor given frequency of BMs at this time HTN/HLD: - Has been hypertensive - reports he was on multiple medications and has been weaned overtime but states his BP has been climbing and c/o headaches - likely will benefit from further control - might be best to defer to PCP as they state he was on multiple medications and may be best to maybe reinstitute previously prescribed medications knowing they worked well in the past - Diovan 160 mg daily; HCTZ on hold; Hydralazine PRN - Crestor 10 mg daily CAD and Carotid Disease: STABLE - Continue to hold ASA/Plavix at this time and will continue this at earliest point BPH: STABLE - Avodart 0.5 mg daily - non-formulary and would need brought in Hypothyroidism: STABLE - Synthroid 150 mcg daily Glaucoma: STABLE - Latanoprost HS/Timolol daily DVT Prophylaxis: SCDs due to bleed Code Status: FULL RESUSCITATION Disposition: Attempting another colonoscopy if prep is adequate - hopeful D/C pending confirmation of site of bleeding and cessation of losses Continued [facility] stay due to: multiple IV medications needed, other (continued rectal bleeding) Discharge planning: home
--- NOTE | 2017-08-17 16:09 | GI REPORT ---
Patient Name: Saleem Rodriges Procedure Date: 08/17/2017 3:33 PM Date of : 1940 Admit Type: Inpatient Age: 77 Gender: Male Attending MD: Emil Briggs MD Procedure: Colonoscopy Providers: Emil Briggs MD Referring MD: Marin Olmos Indications: Treatment of bleeding from polypectomy site Medicines: See the Anesthesia note for documentation of the administered medications Complications: No immediate complications. Estimated Blood Loss: Estimated blood loss: none. Procedure: Pre-Anesthesia Assessment: - ASA Grade Assessment: III - A patient with severe systemic disease. After I obtained informed consent, the scope was passed under direct vision. Throughout the procedure, the patient's blood pressure, pulse, and oxygen saturations were monitored continuously. The scope was introduced through the anus and advanced to the cecum, identified by appendiceal orifice and ileocecal valve. The colonoscopy was performed without difficulty. The patient tolerated the procedure well. The quality of the bowel preparation was fair. Findings: The perianal and digital rectal examinations were normal. There was a large ulcer with a clot and non bleeding visible vessel at the rectosigmoid junction. Five clips were applied to this site; placement of the clips was adequate for hemostasis. The second sigmoid colon polypectomy site was not identified. Diverticulosis in the sigmoid colon. The prep in the proximal colon was fair to poor. There were two ulcers with flat pigmented spots in the ascending colon. One clip was applied to one of these sites. Impression: - Preparation of the colon was fair. - Postpolypectomy ulcer in rectosigmoid colon with clot and non bleeding visible vessel. Five clips applied. Recommendation: - Discharge patient to floor. Regular diet. If no further bleeding overnight, then discharge home in morning. Ailyn Pelayo MD 08/17/2017 4:09:18 PM This report has been signed electronically. Note Initiated On: 08/17/2017 3:33 PM Number of Addenda: 0 I attest to the content of the Intraoperative Record and orders documented therein, exceptions below {[id number]}
--- NOTE | 2017-08-17 16:49 | Anesthesiology Progress Note ---
Anesthesia Post Op Note Date & Time Aug 17, 2017 at 16:48 Vital Signs Pain Intensity: 0.0 Vital Signs Past 12 Hours Date Time Temp Pulse Resp B/P (MAP) Pulse Ox O2 Delivery O2 Flow Rate FiO2 08/17/17 16:14 79 18 178/88 (118) 98 Room Air 08/17/17 16:04 77 18 168/81 (110) 97 Room Air 08/17/17 14:46 36.4 90 18 179/107 (131) 97 Room Air 08/17/17 08:00 97 Room Air 08/17/17 07:38 36.8 80 18 162/68 (99) 97 Room Air Notes Mental Status: alert / awake / arousable, participated in evaluation Pt Amnestic to Procedure: Yes Nausea / Vomiting: adequately controlled Pain: adequately controlled Airway Patency, RR, SpO2: stable & adequate BP & HR: stable & adequate Hydration State: stable & adequate Anesthetic Complications: no major complications apparent
[2017-08-17 17:15] VITALS: BP 174/83; PULSE 75; TEMP 36.6; O2SAT 99
[2017-08-17 20:40] VITALS: BP 143/68; PULSE 83
[2017-08-17] MEDS: LATANOPROST 0.005% OP SOLN 2.5 ML BTL OPB SCH (20:53)
[2017-08-17] MEDS ORDERED: DUTASTERIDE 0.5 MG PO SCH (21:00)
[2017-08-17 22:50] VITALS: BP 146/75; PULSE 74; TEMP 36.3; O2SAT 96
[2017-08-18] MEDS: LEVOTHYROXINE 150 MCG TAB PO SCH (06:27)
[2017-08-18 06:59] LABS: HEMATOCRIT 31.7 % (42-52); HEMOGLOBIN 10.3 g/dL (14.0-18.0); MEAN CELL VOLUME 94.6 fL (80-100); MEAN CORPUSCULAR HEMOGLOBIN 30.7 pg (25-34); MEAN CORPUSCULAR HGB CONC 32.5 g/dl (32-36); MEAN PLATELET VOLUME 9.4 fL (7.4-10.4); PLATELET COUNT 208 K/uL (130-400); RED CELL DISTRIBUTION WIDTH CV 14.2 % (11.5-14.5); RED CELL DISTRIBUTION WIDTH SD 48.8 fL (36.4-46.3); WHITE BLOOD COUNT 7.03 K/uL (4.8-10.8)
[2017-08-18 07:32] VITALS: BP 155/69; PULSE 71; TEMP 36.6; O2SAT 98
[2017-08-18] MEDS: PANTOprazole SOD 40 MG TAB PO SCH (07:59)
[2017-08-18] MEDS: ROSUVASTATIN CALCIUM 10 MG TAB PO SCH (07:59)
[2017-08-18] MEDS: GABAPENTIN 300 MG CAP PO SCH ×2 (07:59→14:08)
[2017-08-18] MEDS: VALSARTAN 80 MG TAB PO SCH (08:00)
[2017-08-18] MEDS: TIMOLOL GFS 0.5% OPH SOLN 74 DROPS/5 ML BTL OPB SCH (08:00)
[2017-08-18 09:55] VITALS: BP_SYST 155; BP_SYST 156; BP_DIAS 70; BP_DIAS 75
[2017-08-18 12:11] LABS: HEMATOCRIT 30.1 % (42-52); HEMOGLOBIN 9.9 g/dL (14.0-18.0)
--- NOTE | 2017-08-18 13:20 | Discharge Instructions ---
Discharge Instructions Date of Service Aug 18, 2017. Admission Reason for Admission: Lower Gi Bleed Discharge Discharge Diagnosis / Problem: Post-Polypectomy Bleed/Ulcer Discharge Goals Goal(s): Decrease discomfort, Improve function, Increase independence Activity Recommendations Activity Limitations: resume your previous activity . Instructions / Follow-Up Instructions / Follow-Up Post-Polypectomy Bleed with Ulcer: - It appears that you have an exposed blood vessel and ulcer in the area where your polyps were removed and these were bleeding. Clips were applied to these areas which will stop the bleeding - These clips will fall out in the next couple weeks and likely will not see them when they happen. You will need to let your doctors know if you need an MRI that you have clips. But again these usually fall out in a couple weeks - Your hemoglobin is 9.9 which has remained stable over the past 2 days between 9.9-10.3. Would like to see this come up to the 12-13 range if possible. Your body will remake blood cells and this number should start to go up. - Will hold your aspirin and plavix until August 25, 2017. You can then resume them but if you notice bleeding hold the medication and call your doctor. - Recommend to stay active and prevent constipation. You may use a stool softener such as Colace (Docusate Sodium) which is sold over the counter. Could also use Miralax as needed. Blood Pressure: - Recommend to follow the instructions from your family doctor. Take the medications they want you on. - We will get a follow-up appointment and please discuss need for restarting some of the other ones you were on. - Your blood pressure here has been anywhere from 150/70 up to 200/90, but was improved on the day of discharge -continue your HCTZ and Diovan as prescribed at home; if your BP goes above 180/ 100, please call your doctor for further instructions. You could take a one time dose of the previous prescription you have for diltiazem 120mg if needed. -of course, if you ever have chest pain, shortness of breath, or severe headache , you should call 911 and go immediately to the ER Continue your previously prescribed medications. We did not make any changes other than to hold your aspirin and plavix until August 25 We will assist with making a follow-up appointment with your family doctor in the next 7-10 days We will give you a prescription for blood work to check your blood counts. You can take this where you normally get your blood work done and the results can go to your family doctor. Current Hospital Diet Patient's current hospital diet: Regular Diet Discharge Diet Recommended Diet: Regular Diet Procedures Procedures Performed: COLONOSCOPY Pending Studies Studies pending at discharge: no Medical Emergencies . Who to Call and When: Medical Emergencies: If at any time you feel your situation is an emergency, please call 911 immediately. . Non-Emergent Contact Non-Emergency issues call your: Primary Care Provider Call Non-Emergent contact if: you have a fever, your pain is concerning you, you have any medication questions . . "Provider Documentation" section prepared by Carolann Cleveland. .
[2017-08-18 15:07] VITALS: BP 155/70; PULSE 71; TEMP 36.6; O2SAT 98
--- NOTE | 2017-08-18 16:36 | Discharge Summary ---
Discharge Summary Date of Service Aug 18, 2017. 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 - CVA occurred due to plaque dislodgement following carotid stenting 3) Hypothyroidism 4) BPH 5) Glaucoma 6) HTN - Likely secondary cause 7) HPL 8) Colon Polyps 9) GI Bleed following Polypectomy 08/2017 10) CAD - states he may have had a silent SD in 2005 - cath in 2009 on record reports nonocclusive disease excepting 90% stenosis of branch vessel which was not amenable to stenting 11) Renal Artery Stenosis Surgery: 1) L Carotid Stent 2) BL Renal Artery Stenting 3) S/P Thyroidectomy Immunizations: Have You Had Influenza Vaccine: Yes History of Tetanus Vaccine?: yes,< 10 yrs.unknown when History of Pneumococcal: Unknown History of Hepatitis B Vaccine: Yes Procedures: CHEST ONE VIEW PORTABLE FINDINGS: The heart is enlarged. There is basilar interstitial thickening. There are no pleural effusions. There is no lobar consolidation.[ There is no free intraperitoneal air. IMPRESSION: Cardiomegaly with mild basilar interstitial thickening. CT ABD/PELVIS IV CONTRAST ONLY FINDINGS: Lower chest: The heart is normal in size and configuration, without pericardial effusion. The lung bases and pleural spaces are clear. Liver: There is mild hepatic steatosis. No focal masses are visualized. Gallbladder: Contracted Spleen: Normal in size and attenuation. Pancreas: Unremarkable. Adrenal glands: Unremarkable. Kidneys: There are multiple bilateral renal cysts the largest of which measures 9 cm on the left and 5.4 cm in the right Bowel: There are no transition zones to indicate bowel obstruction. There is a hyperdense focus within the rectosigmoid junction. This could represent enteric contents or acute hemorrhage. There is no evidence of acute diverticulitis. By history the appendix is surgically absent. Peritoneum: There is a 29 x 14 mm soft tissue nodule at the level of the umbilicus. There is no free intraperitoneal air. There is no evidence of ascites. Vasculature: There is a 33 mm infrarenal abdominal aortic aneurysm. There are bilateral renal artery stents. Adenopathy: Inguinal lymph nodes are at the upper limits of normal in size. Pelvic viscera: The bladder, and pelvic viscera are unremarkable. 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 IMPRESSION: 1. No evidence of bowel obstruction. No evidence of free air 2. Surgically absent appendix. No evidence of acute diverticulitis 3. 33 mm infrarenal abdominal aortic aneurysm 4. Bilateral renal cysts 5. Hyperdense focus at the level of the rectosigmoid junction. This could represent either acute hemorrhage or enteric contents. Endoscopic correlation could be obtained as deemed clinically indicated 6. Nonspecific 29 x 14 mm soft tissue nodule at the level the umbilicus COLONOSCOPY Findings: The perianal and digital rectal examinations were normal. There was a large ulcer with a clot and non bleeding visible vessel at the rectosigmoid junction. Five clips were applied to this site; placement of the clips was adequate for hemostasis. The second sigmoid colon polypectomy site was not identified. Diverticulosis in the sigmoid colon. The prep in the proximal colon was fair to poor. There were two ulcers with flat pigmented spots in the ascending colon. One clip was applied to one of these sites. Impression: - Preparation of the colon was fair. - Postpolypectomy ulcer in rectosigmoid colon with clot and non bleeding visible vessel. Five clips applied. Consultations: 1. [facility] Medication Reconciliation Continued Medications: Aspirin (Aspirin 81) 81 Mg Tab 81 MG PO DAILY Hold this medication until August 25 then resume Calcium Carbonate-Vitamin D (Calcium + D) 1 Tab Tab 1 TAB PO DAILY Clopidogrel (Plavix) 75 Mg Tab 75 MG PO Q2D, TAB Hold this medication until August 25 then resume Dutasteride (Avodart) 0.5 Mg Cap 0.5 MG PO PM, CAP Gabapentin (Neurontin) 300 Mg Cap 300 MG PO TID, 0 Refills Hydrochlorothiazide (Hctz) 12.5 Mg Cap Unknown Dose PO DAILY, TAB Unsure of the dose, but believes it to be a low dose. Latanoprost (Latanoprost) 37 Drops/2.5 Ml Soln 1 DROP OPB DAILY Levothyroxine Sodium (Synthroid) 150 Mcg Tab 150 MCG PO DAILY, TAB Multivitamin (Multivitamin) Tab 1 TAB PO DAILY, 0 Refills Omeprazole (Prilosec) 20 Mg Cap 20 MG PO DAILY, CAP Rosuvastatin Calcium (Crestor) 10 Mg Tab 10 MG PO DAILY, TAB Timolol Maleate (Timolol Gfs 0.5% (Generic For Timoptic-Xe)) 74 Drops/5 Ml Soln 1 DROP OPB DAILY Valsartan (Diovan) 160 Mg Tab 160 MG PO DAILY, TAB Discharge Exam Review of Systems: Constitutional: No fever, No chills, No weakness, No fatigue ENT: No nasal symptoms Respiratory: No cough Cardiovascular: No chest pain, No palpitations Abdomen: No pain, No nausea, No vomiting, No diarrhea, No constipation, No GI bleeding Musculoskeletal: No swelling, No calf pain Genitourinary - Female: No dysuria Genitourinary - Male: No dysuria Neurologic: No balance problems Hematologic / Lymphatic: No abnormal bleeding/bruising Physical Exam: General Appearance: WD/WN, no apparent distress Eyes: sclerae normal ENT: hearing grossly normal Neck: supple, no JVD, trachea midline Respiratory/Chest: lungs clear, normal breath sounds, no respiratory distress, no accessory muscle use Cardiovascular: regular rate, rhythm Abdomen / GI: normal bowel sounds, non tender, soft Extremities: no calf tenderness, no pedal edema Neurologic/Psychiatric: alert, oriented x 3 Skin: normal color, warm/dry Hospital Course ADMISSION: 77 y/o M Hx CVA, carotid disease, HTN, HPL, hypothyroidism, BPH, glaucoma. The pt had a colonoscopy with removal of 4 polyps 3 days prior. He had no symptoms until today when he began passing bright red blood per rectum. He has had 4 or more BMs. He feels as though he has to defecate and then only passes blood. He describes some weakness. He denies any lightheadedness, SOB, CP, nausea/vomiting, abdominal pain or fevers. Initial Hb is within normal limits. Labs are otherwise notable for a low potassium. HOSPITAL COURSE: Lower GI Bleed with Acute Blood Loss Anemia- BRBPR - Polypectomy Bleed/ Ulceration with Visible Vessel - Patient had colonoscopy with polypectomy x 4 on August 11 - per patient report he was not instructed to stop his Plavix/ASA prior to this procedure - had colonoscopy x 2 in-hospital as first had poor visualization and after significant prepping, repeat colonoscopy with ulcerations that were clipped - patient reports BM day of discharge that was soft and brown without bleeding - Hgb remaining stable at 9.9 on discharge and has stayed around 10 x 2 days - no further bleeding - will have recheck on Mo with results to PCP - GI followed - no need for f/u unless symptoms re-occur but can defer to primary GI specialist if needed Hypokalemia: - Will have electrolytes check with his H&H but was repleted here in-hospital HTN/HLD: - Has been hypertensive - reports he was on multiple medications and has been weaned overtime but states his BP has been climbing and c/o headaches - likely will benefit from further control - might be best to defer to PCP as they state he was on multiple medications and may be best to maybe reinstitute previously prescribed medications knowing they worked well in the past - given his history likely an element of secondary HTN - Was instructed to continue his previously prescribed medications and can be re -addressed at his next family doctor follow-up - Crestor 10 mg daily CAD and Carotid Disease: STABLE - Continue to hold ASA/Plavix at this time with plans to restart on August 25, 2017 but to stop and call his doctor if bleeding returns BPH: STABLE - Avodart 0.5 mg daily Hypothyroidism: STABLE - Synthroid 150 mcg daily Glaucoma: STABLE - Latanoprost HS/Timolol daily Code Status: FULL RESUSCITATION Disposition: Will have case management assist with F/U appointment with PCP and F/U blood work Total Time Spent: Greater than 30 minutes This includes examination of the patient, discharge planning, medication reconciliation, and communication with other providers. Discharge Instructions Please refer to the electronic Patient Visit Report (Discharge Instructions) for additional information. Additional Copies To Atul Dickson MD Reviewed: Pt Seen/Exam by Me History Physician [employer]inter [employer] Supervision Note: I interviewed and examined the patient. Discussed with BRITTNEY Cleveland and agree with findings and plan as documented in the note. Any exceptions or clarifications are listed here: Pt feeling great, denies abd pain, CP, or SOB. He had a small brown BM this morning, no blood. is worried about his BPs getting high at home over the weekend as they have been in the 150s systolic here since he had his HCTZ held. I instructed her to restart his HCTZ at home, and check resting BP daily. If BPs start creeping up over 180 systolic, call MD. If can't reach MD, ok to take diltiazem 120mg po x 1 he still has at home (was stopped recently due to fatigue ). Vitals reviewed NAD, AAOx3, ambulating around room RRR no mgr CTAB no wcr Abd +BS soft NT ND Ext trace pitting edema legs bilat 77 yo male with HTN, CAD, CVA, SHAAN, DAVID, Hypothyroidism, BPH, and dyslipidemia, here with lower GI bleed and acute blood loss anemia secondary to post- polypectomy bleeding. Ulcerations clipped in colon during colonoscopy and no further bleeding, H/H remains stable. Was advised to take Ferrous sulfate 325mg po qday to bid as tolerated, along with docusate sodium 100mg bid to avoid constipation in order to aid with bringing Hgb levels back up faster. -HTN-restart HCTZ at home as above and f/u with PCP-was given our phone number to call over the weekend if has elevated BPs due to 's concern, however I doubt they will be elevated significantly -hold ASA/Plavix x 1 more week and check labs on Tuesday Hypokalemia-secondary to GI losses during colon prep--> replaced yesterday--> check BMP on Tuesday Stable for dc to home Documented By: Olivia Hanna
== END 2017-08-18 16:26 | disposition home or self-care (01) | DRG 920 ==
LOC: C.EDB 18:27 → C.MED 21:01 → ENRESERV 21:16 → C.MS4W 08-15 17:11 → OBSVTOIN 08-16 11:54
PROVIDERS: ADMIT Internal Medicine; ATTEND Internal Medicine
PROC: 0DJD8ZZ Inspection of Lower Intestinal Tract, Via Natural or Artificial Opening Endoscopic (ICD-10-PCS; 2017-08-15)
PROC: 0W3P8ZZ Control Bleeding in Gastrointestinal Tract, Via Natural or Artificial Opening Endoscopic (ICD-10-PCS; principal; 2017-08-17 14:40)
DX: K91.840 Postprocedural hemorrhage of a digestive system organ or structure following a digestive system procedure (principal); K62.6 Ulcer of anus and rectum; D62 Acute posthemorrhagic anemia; K62.5 Hemorrhage of anus and rectum; Z86.010 Personal history of colon polyps; I10 Essential (primary) hypertension; Z86.73 Personal history of transient ischemic attack (TIA), and cerebral infarction without residual deficits; Z88.8 Allergy status to other drugs, medicaments and biological substances; I65.29 Occlusion and stenosis of unspecified carotid artery; E03.9 Hypothyroidism, unspecified; E78.5 Hyperlipidemia, unspecified; H40.9 Unspecified glaucoma; I25.10 Atherosclerotic heart disease of native coronary artery without angina pectoris; Z87.891 Personal history of nicotine dependence; E87.6 Hypokalemia; I25.2 Old myocardial infarction; K57.30 Diverticulosis of large intestine without perforation or abscess without bleeding; Z79.02 Long term (current) use of antithrombotics/antiplatelets; Z79.82 Long term (current) use of aspirin; Y83.8 Other surgical procedures as the cause of abnormal reaction of the patient, or of later complication, without mention of misadventure at the time of the procedure; Y92.019 Unspecified place in single-family (private) house as the place of occurrence of the external cause

== ENCOUNTER 2020-11-23 09:40 | Inpatient (IN) ==
--- NOTE | 2020-11-23 09:56 | Emergency Department Note ---
Impression & Plan COVID-19, Elevated troponin I level, Hypokalemia, Hypocalcemia ED Provider Note NAME: ADELINE ALFARO AGE: 80 SEX: M : 1940 ARRIVES VIA: Walk-In INFORMANT: Patient, ED PROVIDER(S): Walter Gillette MD Chief Complaint: Weakness, hemoptysis, COVID-19 HPI: Patient does present from home this morning due to concern for hemoptysis, weakness as well as hypoxia at home at 87%. Patient recently diagnosed with Co vid on November 17. The patient was having dizziness loss of appetite with productive cough. Patient states that he noticed the hemoptysis this morning. The patient does take Plavix but no other blood thinning medications. Patient denies prior history of DVT or PE. Patient denies any abdominal pain or nausea. The patient denies any dysuria or hematuria. Patient denies any leg swelling or history of recent surgeries or procedures. The patient did have a fall prior to the patient's symptoms which did necessitate going to the doctor's office as the patient did have a wound of the left lower extremity. Patient states that this is healing appropriately other than this in [facility] these were the only place that the patient is gone. The patient is vaccinated with maternal vaccine. Patient is a non-smoker. Patient symptoms have not gotten better and gotten progressively worse. Patient did present today due to concern for the hemoptysis and hypoxia. Patient does not wear oxygen at home. ROS: See HPI for pertinent positives and negatives. A total of 10 systems were reviewed and otherwise negative. Past medical history: See below Surgical history: See below Social history: See below Physical Exam: GENERAL: Fatigued and mildly ill in appearance, NAD, wearing glasses, wearing a mask, non-toxic. EYE EXAM: Normal conjunctiva. PERRL, no anisocoria and EOM's grossly intact w/o pain. NECK: Supple, no nuchal rigidity, no adenopathy, non-tender. No signs of meningismus. LUNGS: Clear to auscultation. Normal chest wall mechanics. HEART: NSR, no MRG. ABDOMEN: Abdomen soft, non-tender, normo-active bowel sounds, no masses, no rebound or guarding. BACK: No CVA TTP. SKIN: No rashes and no bruising. UPPER EXTREMITIES: Upper extremities are grossly normal. LOWER EXTREMITIES: Grossly normal, 1+ symmetric bilateral lower extremity edema, no calf pain, left lower extremity wrapped noted. NEURO EXAM: A&O x3, cranial nerves II-XII grossly intact, normal speech, moves all 4 extremities on command w/o issue. Differential diagnoses: Reactive airway disease, pneumonia, pneumothorax, COPD, CHF, infections, cardiac ischemia, pulmonary embolism, musculoskeletal, gastrointestinal, as well as other pathologies. Course: Patient was seen and evaluated the bedside. Full history physical exam was performed. EKG interpreted by me Normal sinus rhythm, rate of 74, normal NC, wide QRS, left bundle branch block pattern, normal axis. She has left bundle is new but grossly the morphology appears relatively unchanged from comparison EKG February 28, 2018. Imaging Studies: See Below Cardiac monitoring: An order was placed for continuous cardiac monitoring. The monitor shows a rate of 82 with sinus rhythm. MDM: Patient does present with concern for COVID-19 weakness and fatigue. The patient did have hemoptysis. Blood work was obtained along with a CT angiography of the chest. Patient has a normal white count and hemoglobin. Platelet count is unremarkable. The patient does have mild hypokalemia and hypo-Simba C. Lore. These were ordered for repleted. The patient's troponin is positive but EKG appears grossly unchanged. CT angiography does not show any evidence of PE. Covid is still positive. TSH is negative. Pro-Simba is not elevated. Patient had been given dexamethasone as the patient did have hypoxemia at home. I did speak the on-call hospitalist JAYLEN Bedolla and the patient was admitted by Dr. Sanchez. Past Med/Surg History Medical History Arthritis Back pain, chronic Benign localized hyperplasia of prostate Carotid artery stenosis Central retinal artery occlusion CKD (chronic kidney disease), stage III Coronary artery disease Glaucoma History of CVA (cerebrovascular accident) Hypercholesterolemia Hypothyroidism Obstructive sleep apnea of adult Peripheral vascular disease Pneumonia due to COVID-19 virus Renal artery stenosis Surgical History History of right common carotid artery stent placement History of stent insertion of renal artery History of thyroidectomy, subtotal Hx of appendectomy Hx of cataract surgery Hx of umbilical hernia repair Family History Brother Prostate cancer Cardiac disorder Mother Cardiac disorder Hypertension Unknown Malignant neoplasm of kidney Colon cancer Son Obstructive sleep apnea Other Family history non-contributory Social History Smoking Status: Former smoker Hx Alcohol Use: No Hx Substance Use: No Preferred Language: Syriac Communication Ability: Effective Beliefs That Will Affect Care: None marital status: Current Living Situation: Alone and Spouse Current Living Situation Comment: Feels Safe at Home: Yes Assistive Devices: Glasses and Hearing Aid - Bilateral Allergies Allergies Allergy/AdvReac Type Severity Reaction Status Date / Time fentanyl Allergy Mild ?RASH Verified 11/23/20 11:37 propofol Allergy Unknown ?RASH Verified 11/23/20 11:37 Home Meds Home Medications Medication Instructions Recorded Confirmed acetaminophen 500 mg tablet 500 mg PO QAM 01/29/18 11/23/20 (Acetaminophen Extra Strength) brimonidine 0.2 %-timolol 0.5 % 1 drp OPB BID 01/29/18 11/23/20 eye drops (Combigan) calcium carbonate 600 mg calcium 600 mg PO QAM 01/29/18 11/23/20 (1,500 mg) tablet (Calcium) cholecalciferol (vitamin D3) 1,250 50,000 unit PO MONTHLY 01/29/18 11/23/20 mcg (50,000 unit) capsule dutasteride 0.5 mg capsule 0.5 mg PO HS 01/29/18 11/23/20 (Avodart) gabapentin 300 mg capsule 300 mg PO TID 01/29/18 11/23/20 (Neurontin) latanoprost 0.005 % eye drops 1 drp OPB HS 01/29/18 11/23/20 (Xalatan) levothyroxine 150 mcg tablet 150 mcg PO QAM 01/29/18 11/23/20 multivitamin 1 tab PO QAM 01/29/18 11/23/20 omega-3 360 nh-ouf-dlf-fish oil 1 cap PO QAM 01/29/18 11/23/20 1,200 mg capsule,delayed release (Fish Oil) omeprazole 20 mg capsule,delayed 20 mg PO DAILYBB 01/29/18 11/23/20 release amlodipine 5 mg tablet (Norvasc) 5 mg PO HS 02/28/18 11/23/20 clopidogrel 75 mg tablet (Plavix) 75 mg PO Q2D@0900 02/28/18 11/23/20 nitroglycerin 0.4 mg sublingual 0.[address] 1 TABLET UNDER 08/29/18 11/23/20 tablet (Nitrostat) PRN #1 tab albuterol sulfate 90 mcg/actuation 2 puff INHALATION QID PRN 11/23/20 11/23/20 aerosol inhaler (ProAir HFA) ascorbic acid (vitamin C) 500 mg 500 mg PO BID 11/23/20 11/23/20 tablet aspirin 81 mg tablet,delayed 81 mg PO HS 11/23/20 11/23/20 release cholecalciferol (vitamin D3) 25 25 mcg PO BID 11/23/20 11/23/20 mcg (1,000 unit) capsule (Vitamin D3) furosemide 20 mg tablet (Lasix) 20 mg PO QAM 11/23/20 11/23/20 losartan 100 mg tablet (Cozaar) 50 mg PO HS PRN 11/23/20 11/23/20 metoprolol succinate 25 mg 12.5 mg PO HS 11/23/20 11/23/20 tablet,extended release 24 hr (Toprol XL) rosuvastatin 10 mg tablet (Crestor) 10 mg PO HS 11/23/20 11/23/20 terazosin 2 mg capsule 2 mg PO HS 11/23/20 11/23/20 Results & Data (ED) Vital Signs Vital Signs - 24 hr 11/23/20 09:44 11/23/20 11:00 11/23/20 13:00 Temperature 36.4 C L Temperature Source Temporal Artery Scan Pulse Rate 86 Pulse Rate [Apical] 80 Respiratory Rate 20 18 Blood Pressure 112/64 Blood Pressure [Right Arm] 167/82 H Blood Pressure Mean 80 Blood Pressure Mean [Right Arm] 110 Blood Pressure Position Sitting Pulse Oximetry 93 93 92 Oxygen Delivery Method Room Air Room Air Sepsis Recent Fever Within 48 Hours Yes Sepsis New/Unexplained Change in Mental Status No Sepsis Action Taken by Nursing No Action Required Home Medications Current Medication List: was personally reviewed by me Laboratory Data Attestation: I reviewed the patient's lab results. Result diagrams: 11/23/20 Unknown 11/23/20 Unknown Lab Results 11/23/20 11/23/20 11/23/20 Range/Units 15:50 Unknown Unknown WBC 4.85 (4.8-10.8) K/uL RBC 4.56 L (4.7-6.1) M/uL Hgb 14.5 (14.0-18.0) g/dL Hct 41.7 L (42-52) % MCV 91.4 (80-100) fL MCH 31.8 (25-34) pg MCHC 34.8 (32-36) g/dL RDW Std Deviation 44.5 (36.4-46.3) fL RDW Coeff of Gely 13.4 (11.5-14.5) % Plt Count 178 (130-400) K/uL MPV 9.2 (7.4-10.4) fL Immature Gran % (Auto) 0.2 % Neut % (Auto) 79.8 % Lymph % (Auto) 8.9 % Scurry % (Auto) 10.9 % Eos % (Auto) 0.0 % Baso % (Auto) 0.2 % Neut # (Auto) 3.87 (1.4-6.5) K/uL Lymph # (Auto) 0.43 L (1.2-3.4) K/uL Scurry # (Auto) 0.53 (0.11-0.59) K/uL Eos # (Auto) 0.00 (0-0.5) K/uL Baso # (Auto) 0.01 (0-0.2) K/uL Immature Gran # (Auto) 0.01 (0.00-0.02) K/uL Sodium 134 L (136-145) mmol/L Potassium 3.1 L (3.5-5.1) mmol/L Chloride 102 (98-107) mmol/L Carbon Dioxide 29 (21-32) mmol/L Anion Gap 3.0 (3-11) BUN 15 (7-18) mg/dl Creatinine 1.22 (0.6-1.4) mg/dl Est Cr Clr Drug Dosing Not Reportable Est GFR ( Amer) 64.5 ml/min Est GFR (Non-Af Amer) 55.6 ml/min BUN/Creatinine Ratio 12.1 (10-20) Glucose 134 H (70-99) mg/dl Calcium 8.2 L (8.5-10.1) mg/dl Magnesium 1.9 (1.8-2.4) mg/dl Total Bilirubin 0.5 (0.2-1) mg/dl AST 42 H (15-37) U/L ALT 34 (12-78) U/L Alkaline Phosphatase 73 (45-117) U/L Troponin I 0.103 H* (0-0.045) ng/ml C-Reactive Protein 11.60 H (0-0.29) mg/dl Total Protein 6.9 (6.4-8.2) gm/dl Albumin 2.7 L (3.4-5.0) gm/dl Globulin 4.2 H (2.5-4.0) gm/dl Albumin/Globulin Ratio 0.6 L (0.9-2) Procalcitonin 0.08 (0-0.5) ng/ml TSH 0.942 (0.300-4.500) uIu/ml COVID-19 Eval Order SARS-CoV-2 (PCR) (Negative) 11/23/20 11/23/20 Range/Units Unknown Unknown WBC (4.8-10.8) K/uL RBC (4.7-6.1) M/uL Hgb (14.0-18.0) g/dL Hct (42-52) % MCV (80-100) fL MCH (25-34) pg MCHC (32-36) g/dL RDW Std Deviation (36.4-46.3) fL RDW Coeff of Gely (11.5-14.5) % Plt Count (130-400) K/uL MPV (7.4-10.4) fL Immature Gran % (Auto) % Neut % (Auto) % Lymph % (Auto) % Scurry % (Auto) % Eos % (Auto) % Baso % (Auto) % Neut # (Auto) (1.4-6.5) K/uL Lymph # (Auto) (1.2-3.4) K/uL Scurry # (Auto) (0.11-0.59) K/uL Eos # (Auto) (0-0.5) K/uL Baso # (Auto) (0-0.2) K/uL Immature Gran # (Auto) (0.00-0.02) K/uL Sodium (136-145) mmol/L Potassium (3.5-5.1) mmol/L Chloride (98-107) mmol/L Carbon Dioxide (21-32) mmol/L Anion Gap (3-11) BUN (7-18) mg/dl Creatinine (0.6-1.4) mg/dl Est Cr Clr Drug Dosing Est GFR ( Amer) ml/min Est GFR (Non-Af Amer) ml/min BUN/Creatinine Ratio (10-20) Glucose (70-99) mg/dl Calcium (8.5-10.1) mg/dl Magnesium (1.8-2.4) mg/dl Total Bilirubin (0.2-1) mg/dl AST (15-37) U/L ALT (12-78) U/L Alkaline Phosphatase (45-117) U/L Troponin I (0-0.045) ng/ml C-Reactive Protein (0-0.29) mg/dl Total Protein (6.4-8.2) gm/dl Albumin (3.4-5.0) gm/dl Globulin (2.5-4.0) gm/dl Albumin/Globulin Ratio (0.9-2) Procalcitonin (0-0.5) ng/ml TSH (0.300-4.500) uIu/ml COVID-19 Eval Order Covid19 at [facility] SARS-CoV-2 (PCR) POSITIVE A* (Negative) Administered Medications Discontinued Medications Aspirin (Aspirin Chew 324 Mg) 324 mg PO NOW STA Stop: 11/23/20 12:25 Last Admin: 11/23/20 13:06 Dose: 324 mg Documented by: [id number] Dexamethasone Sodium Phosphate (DexamethasonePf 10 Mg/Ml Vial) 6 mg IV NOW ONE Stop: 11/23/20 10:17 Last Admin: 11/23/20 10:43 Dose: 6 mg Documented by: [id number] Sodium Chloride (Nss 1000ml) 1,000 mls @ 999 mls/hr IV .Q1H1M MELQUIADES Stop: 11/23/20 11:30 Last Admin: 11/23/20 10:43 Dose: 999 mls/hr Documented by: [id number] Calcium Gluconate () 1,000 mg in 60 mls @ 240 mls/hr IV NOW STA Stop: 11/23/20 12:37 Last Admin: 11/23/20 13:06 Dose: 240 mls/hr Documented by: [id number] Ioversol (Optiray 320 125ml) 117 ml IV ONCE ONE Stop: 11/23/20 12:04 Last Admin: 11/23/20 12:03 Dose: 117 ml Documented by: [id number] Ondansetron HCl (Ondansetron Inj 2 Mg/Ml 2 Ml Vial) 4 mg IV NOW STA Stop: 11/23/20 10:17 Last Admin: 11/23/20 10:43 Dose: 4 mg Documented by: [id number] Potassium Chloride (Potassium Chloride Crtab 20 Meq Tabcr) 40 meq PO NOW STA Stop: 11/23/20 12:24 Last Admin: 11/23/20 13:06 Dose: 40 meq Documented by: [id number] Imaging Data Radiologist's Impression: Chest CTA 11/23/20 10:16 CT ANGIOGRAPHY OF THE CHEST, PULMONARY EMBOLUS PROTOCOL CLINICAL HISTORY: hemoptysis, COVID+ on plavix COMPARISON STUDY: Chest February 28, 2018. TECHNIQUE: Following IV administration of 117 mL of Optiray, helical axial images of the chest were obtained utilizing the pulmonary embolus protocol. Maximal intensity projections and sagittal and coronal reformats were viewed on an independent 3D workstation. IV contrast was administered without complication. Automated exposure control was utilized for the study. A dose lowering technique was utilized adhering to the principles of ALARA. CT DOSE: 555.32 mGycm FINDINGS: No pulmonary emboli are identified. There is no thoracic aortic dissection. Mild cardiomegaly is noted as well as moderate coronary artery calcification. There is no pericardial effusion. Small bilateral pleural effusions are noted. There is no pneumothorax. Central airways are patent. There is mild emphysema. There are multiple mildly enlarged mediastinal and right hilar lymph nodes. Index right paratracheal lymph node measures 1.3 cm in short axis diameter. There are several left lobe thyroid nodule. Right thyroid lobe is not visualized. Extensive groundglass opacity within the right upper lobe is noted. Moderate additional multifocal groundglass opacities throughout the lungs are present. IMPRESSION: 1. No pulmonary emboli identified. 2. Multifocal groundglass opacities throughout the lungs with extensive right upper lobe groundglass opacity. The findings favor viral pneumonia. 3. Multiple mildly enlarged mediastinal and right hilar lymph nodes. These are likely reactive. A follow-up chest CT in 3-6 months to ensure resolution is recommended. 4. Small bilateral pleural effusions. 5. Mild emphysema. ACT 112: Negative or not required by law. Electronically signed by: Iain Urbina M.D. 11/23/2020 12:16 PM Discharge Plan Visit Data Chief Complaint: Flu Like Symptoms Stated Complaint: CHILLS, SORE THROAT, JARA, COVID+ 11/17 ED Provider: Walter Gillette Discharge Problem: COVID-19, Elevated troponin I level, Hypokalemia, Hypocalcemia Patient Disposition: Admitted As Inpatient Forms Stand Alone Forms: [facility] Prescriptions Prescriptions: No Action nitroglycerin [Nitrostat] 0.4 mg tablet, sublingual 0.[address] 1 TABLET UNDER PRN (Reason: Chest Pain) Qty: 1 RF: 0 multivitamin Tablet 1 tab PO QAM RF: 0 latanoprost [Xalatan] 0.005 % drops 1 drp OPB HS RF: 0 acetaminophen [Acetaminophen Extra Strength] 500 mg Tablet 500 mg PO QAM RF: 0 calcium carbonate [Calcium 600] 600 mg calcium (1,500 mg) Tablet 600 mg PO QAM RF: 0 levothyroxine 150 mcg tablet 150 mcg PO QAM RF: 0 gabapentin [Neurontin] 300 mg capsule 300 mg PO TID RF: 0 omeprazole 20 mg capsule,delayed release(DR/EC) 20 mg PO DAILYBB RF: 0 dutasteride [Avodart] 0.5 mg capsule 0.5 mg PO HS RF: 0 cholecalciferol (vitamin D3) 50,000 unit capsule 50,000 unit PO MONTHLY RF: 0 Combigan 0.2-0.5 % drops 1 drp OPB BID RF: 0 omega 5-dkn-wki-fish oil [Fish Oil] 360-1,200 mg Capsule,Delayed Release(Dr/Ec) 1 cap PO QAM RF: 0 clopidogrel [Plavix] 75 mg tablet 75 mg PO Q2D@0900 RF: 0 amlodipine [Norvasc] 5 mg tablet 5 mg PO HS RF: 0 furosemide [Lasix] 20 mg tablet 20 mg PO QAM RF: 0 albuterol sulfate [ProAir HFA] 90 mcg/actuation HFA aerosol inhaler 2 puff INHALATION QID PRN (Reason: Shortness Of Breath Or Wheezing) RF: 0 terazosin 2 mg capsule 2 mg PO HS RF: 0 metoprolol succinate [Toprol XL] 25 mg tablet extended release 24 hr 12.5 mg PO HS RF: 0 rosuvastatin [Crestor] 10 mg tablet 10 mg PO HS RF: 0 aspirin [Aspirin Low-Strength] 81 mg Tablet,Delayed Release (Dr/Ec) 81 mg PO HS RF: 0 losartan [Cozaar] 100 mg tablet 50 mg PO HS PRN (Reason: Blood Pressure) RF: 0 ascorbic acid (vitamin C) 500 mg Tablet 500 mg PO BID RF: 0 cholecalciferol (vitamin D3) [Vitamin D3] 25 mcg (1,000 unit) Capsule 25 mcg PO BID RF: 0 Referrals Referrals: Jose Ramirez [Primary Care Provider] -
[2020-11-23] MEDS ORDERED: ONDANSETRON INJ 2 MG/ML 2 ML VIAL IV STA (10:16)
[2020-11-23] MEDS ORDERED: dexAMETHasone**PF** 10 MG/ML VIAL IV ONE (10:16)
[2020-11-23] MEDS ORDERED: SODIUM CHLORIDE 0.9% 1000ML 1,000 ML IV SCH (10:30)
[2020-11-23 11:00] LABS: Basophils # (auto) 0.01 K/uL (0-0.2); Basophils % (auto) 0.2 %; Hematocrit (blood only) 41.7 % (42-52); Hemoglobin 14.5 g/dL (14.0-18.0); Immature Granulocytes # (auto) 0.01 K/uL (0.00-0.02); Immature Granulocytes % (auto) 0.2 %; Lymphocytes # (auto) 0.43 K/uL (1.2-3.4); Lymphocytes % (auto) 8.9 %; Mean Corpuscular Hemoglobin 31.8 pg (25-34); Mean Corpuscular Hgb Conc 34.8 g/dL (32-36); Mean Corpuscular Volume 91.4 fL (80-100); Mean Platelet Volume 9.2 fL (7.4-10.4); Monocytes # (auto) 0.53 K/uL (0.11-0.59); Monocytes % (auto) 10.9 %; Neutrophils # (auto) 3.87 K/uL (1.4-6.5); Neutrophils % (auto) 79.8 %; Platelet Count 178 K/uL (130-400); RDW Coefficient of Variation 13.4 % (11.5-14.5); RDW Standard Deviation 44.5 fL (36.4-46.3); Red Blood Count 4.56 M/uL (4.7-6.1); White Blood Count 4.85 K/uL (4.8-10.8)
[2020-11-23 11:18] LABS: Alanine Aminotransferase 34 U/L (12-78); Albumin Level 2.7 gm/dl (3.4-5.0); Aspartate Aminotransferase 42 U/L (15-37); BUN Creatinine Ratio 12.1 (10-20); Blood Urea Nitrogen 15 mg/dl (7-18); Calcium 8.2 mg/dl (8.5-10.1); Carbon Dioxide 29 mmol/L (21-32); Chloride 102 mmol/L (98-107); Est GFR (African American) 64.5 ml/min; Est GFR (Non-African American) 55.6 ml/min; Glucose 134 mg/dl (70-99); Magnesium 1.9 mg/dl (1.8-2.4); Potassium 3.1 mmol/L (3.5-5.1); Sodium 134 mmol/L (136-145)
[2020-11-23 11:39] LABS: Albumin Globulin Ratio 0.6 (0.9-2); Alkaline Phosphatase 73 U/L (45-117); Bilirubin,Total 0.5 mg/dl (0.2-1); Globulin 4.2 gm/dl (2.5-4.0); Thyroid Stimulating Hormone 0.942 uIu/ml (0.300-4.500); Total Protein 6.9 gm/dl (6.4-8.2); Troponin I 0.103 ng/ml (0-0.045)
[2020-11-23] MEDS ORDERED: OPTIRAY 320 125ml IV ONE (12:03)
--- NOTE | 2020-11-23 12:18 | CT Scan Report ---
CT ANGIOGRAPHY OF THE CHEST, PULMONARY EMBOLUS PROTOCOL CLINICAL HISTORY: hemoptysis, COVID+ on plavix COMPARISON STUDY: Chest February 28, 2018. TECHNIQUE: Following IV administration of 117 mL of Optiray, helical axial images of the chest were o btained utilizing the pulmonary embolus protocol. Maximal intensity projections and sagittal and cor onal reformats were viewed on an independent 3D workstation. IV contrast was administered without co mplication. Automated exposure control was utilized for the study. A dose lowering technique was ut ilized adhering to the principles of ALARA. CT DOSE: 555.32 mGycm FINDINGS: No pulmonary emboli are identified. There is no thoracic aortic dissection. Mild cardiomeg leobardo is noted as well as moderate coronary artery calcification. There is no pericardial effusion. Sma ll bilateral pleural effusions are noted. There is no pneumothorax. Central airways are patent. There is mild emphysema. There are multiple mildly enlarged mediastinal and right hilar lymph nodes. Index right paratracheal lymph node measures 1.3 cm in short axis diameter. There are several left lobe th yroid nodule. Right thyroid lobe is not visualized. Extensive groundglass opacity within the right up per lobe is noted. Moderate additional multifocal groundglass opacities throughout the lungs are pres ent. IMPRESSION: 1. No pulmonary emboli identified. 2. Multifocal groundglass opacities throughout the lungs with extensive right upper lobe groundglass opacity. The findings favor viral pneumonia. 3. Multiple mildly enlarged mediastinal and right hilar lymph nodes. These are likely reactive. A fol low-up chest CT in 3-6 months to ensure resolution is recommended. 4. Small bilateral pleural effusions. 5. Mild emphysema. ACT 112: Negative or not required by law. Electronically signed by: Iain Urbina M.D. 11/23/2020 12:16 PM
[2020-11-23] MEDS ORDERED: POTASSIUM CHLORIDE CRTAB 20 MEQ TABCR PO STA (12:23)
[2020-11-23] MEDS ORDERED: CALCIUM GLUCONATE 1,000 MG/60 ML BAG IV STA (12:23)
[2020-11-23] MEDS ORDERED: ASPIRIN CHEW 324 MG PO STA (12:24)
--- NOTE | 2020-11-23 16:20 | History & Physical Report ---
Date of Service November 23, 2020 Assessment & Plan (1) Pneumonia due to COVID-19 virus: Plan: -Admit to telemetry -Patient presenting from home with reports of worsening generalized weakness, hypoxia, hemoptysis -In the ED, saturating > 90% on room air -Will hold on dexamethasone and remdesivir at this time -Check procal and CRP -Continue supportive care with flutter valve, incentive spirometry, nebs -Monitor ambulatory pulse ox (2) Coronary artery disease: (3) Elevated troponin: Plan: -Likely demand ischemia in the setting of acute illness -Trend troponin, consider resting echo -No chest pain, EKG shows an unchanged LBBB -Continue ASA, Plavix, statin, beta-alia -Cardiac cath 2009 showed nonobstructive CAD, (4) Leg wound, left: Plan: -Wound care consult (5) CKD (chronic kidney disease), stage III: Plan: -Baseline creatinine ~ 1.4 -Creatinine 1.2 today -Monitor renal functions (6) History of CVA (cerebrovascular accident): (7) History of stent insertion of renal artery: (8) History of right common carotid artery stent placement: Plan: -Continue ASA, Plavix, statin (9) Hypertension: Plan: -BP controlled, continue amlodipine, furosemide, metoprolol (10) Hypothyroidism: Plan: -Continue levothyroxine (11) DVT prophylaxis: Plan: -SQ Lovenox History of Present Illness Chief Complaint: Weakness, coughing up blood Primary Care Provider: Jose Ramirez 80-year-old male with PMH HTN, history of CVA, renal artery stenosis s/p stenting, retinal artery occlusion, chronic LBBB, carotid stenosis, nonobstructive CAD per cardiac cath 2009, CKD stage III, BPH, and other problems listed below who presents to the ED for evaluation of weakness and hemoptysis. Patient diagnosed with COVID-19 on 11/17. Noted that patient is fully vaccinated. He reports generalized weakness, fevers of up to 104, exertional shortness of breath, and cough. Patient reports that for the past couple of days, he has had a small amount of blood in his sputum. He also has a home pulse oximeter and reports that oxygen level was 87% at rest this morning. Patient denies chest pain. He reports feeling lightheaded and dizzy however no syncopal event. He has had a poor appetite however denies abdominal pain, nausea, vomiting, diarrhea. No urinary symptoms. In the ED, patient is saturating >90% on room air. Labs show troponin 0.103, EKG shows an unchanged LBBB. CTA chest negative for pulmonary embolism however does show signs of viral pneumonia. Patient was given a full dose aspirin, calcium and potassium replacement, IV dexamethasone 6 mg, IVF. Allergies Allergy/AdvReac Type Severity Reaction Status Date / Time fentanyl Allergy Mild ?RASH Verified 11/23/20 11:37 propofol Allergy Unknown ?RASH Verified 11/23/20 11:37 Home Medications Medication Instructions Recorded Confirmed Type acetaminophen 500 mg tablet 500 mg PO QAM 01/29/18 11/23/20 History (Acetaminophen Extra Strength) brimonidine 0.2 %-timolol 0.5 % 1 drp OPB BID 01/29/18 11/23/20 History eye drops (Combigan) calcium carbonate 600 mg calcium 600 mg PO QAM 01/29/18 11/23/20 History (1,500 mg) tablet (Calcium) cholecalciferol (vitamin D3) 1,250 50,000 unit PO MONTHLY 01/29/18 11/23/20 History mcg (50,000 unit) capsule dutasteride 0.5 mg capsule 0.5 mg PO HS 01/29/18 11/23/20 History (Avodart) gabapentin 300 mg capsule 300 mg PO TID 01/29/18 11/23/20 History (Neurontin) latanoprost 0.005 % eye drops 1 drp OPB HS 01/29/18 11/23/20 History (Xalatan) levothyroxine 150 mcg tablet 150 mcg PO QAM 01/29/18 11/23/20 History multivitamin 1 tab PO QAM 01/29/18 11/23/20 History omega-3 360 da-eso-psj-fish oil 1 cap PO QAM 01/29/18 11/23/20 History 1,200 mg capsule,delayed release (Fish Oil) omeprazole 20 mg capsule,delayed 20 mg PO DAILYBB 01/29/18 11/23/20 History release amlodipine 5 mg tablet (Norvasc) 5 mg PO HS 02/28/18 11/23/20 History clopidogrel 75 mg tablet (Plavix) 75 mg PO Q2D@0900 02/28/18 11/23/20 History nitroglycerin 0.4 mg sublingual 0.4 mg [address] .PL[address] 1 TABLET UNDER 08/29/18 11/23/20 History tablet (Nitrostat) PRN #1 tab albuterol sulfate 90 mcg/actuation 2 puff INHALATION QID PRN 11/23/20 11/23/20 History aerosol inhaler (ProAir HFA) ascorbic acid (vitamin C) 500 mg 500 mg PO BID 11/23/20 11/23/20 History tablet aspirin 81 mg tablet,delayed 81 mg PO HS 11/23/20 11/23/20 History release cholecalciferol (vitamin D3) 25 25 mcg PO BID 11/23/20 11/23/20 History mcg (1,000 unit) capsule (Vitamin D3) furosemide 20 mg tablet (Lasix) 20 mg PO QAM 11/23/20 11/23/20 History losartan 100 mg tablet (Cozaar) 50 mg PO HS PRN 11/23/20 11/23/20 History metoprolol succinate 25 mg 12.5 mg PO HS 11/23/20 11/23/20 History tablet,extended release 24 hr (Toprol XL) rosuvastatin 10 mg tablet (Crestor) 10 mg PO HS 11/23/20 11/23/20 History terazosin 2 mg capsule 2 mg PO HS 11/23/20 11/23/20 History Past Med/Surg History Medical History Arthritis Back pain, chronic Benign localized hyperplasia of prostate Carotid artery stenosis Central retinal artery occlusion CKD (chronic kidney disease), stage III Coronary artery disease Glaucoma History of CVA (cerebrovascular accident) Hypercholesterolemia Hypothyroidism Obstructive sleep apnea of adult Peripheral vascular disease Pneumonia due to COVID-19 virus Renal artery stenosis Surgical History History of right common carotid artery stent placement History of stent insertion of renal artery History of thyroidectomy, subtotal Hx of appendectomy Hx of cataract surgery Hx of umbilical hernia repair Family History Brother Prostate cancer Cardiac disorder Mother Cardiac disorder Hypertension Unknown Malignant neoplasm of kidney Colon cancer Son Obstructive sleep apnea Other Family history non-contributory Social History Smoking Status: Former smoker Second Hand Exposure: No; Do You Dip or Chew Tobacco: No; Tobacco Cessation Education Requested by Patient: No Hx Alcohol Use: No Hx Substance Use: No Preferred Language: Yakut Communication Ability: Effective Credit Risk Review Officer Required: No Beliefs That Will Affect Care: None marital status: Current Living Situation: Spouse Current Living Situation Comment: Other Information That Helps Us Care for You: No Feels Safe at Home: Yes Safety Concerns: Feels Safe At This Time Assistive Devices: Glasses and Hearing Aid - Bilateral Review of Systems Review of Systems: ROS per HPI, all other systems reviewed and negative Physical Exam Constitutional: WD/WN, vitals as above Eyes: PERRL, conjunctivae normal, anicteric sclerae ENMT: external ear and nose normal, oropharynx normal Respiratory: normal respiratory effort; no respiratory distress Auscultation: + diminished lung sounds (BL) Cardiovascular: Rate/Rhythm: regular rate and regular rhythm Vessels: normal peripheral pulses Extremities: + edema (+1-2 edema BLE) Gastrointestinal (Abdomen): normal bowel sounds, soft, nontender, no hepatosplenomegaly Musculoskeletal: no cyanosis or clubbing, extremities motor strength 5/5 Skin: no rashes, warm and dry LLE wrapped - reported wound Neurologic: PERRL, EOMI, accommodation nl, no face palsy, no dysarthria Psychiatric: A+Ox3, euthymic affect Results & Data Results & Data ([facility]) Vital Signs (Past 12 Hours) Vital Signs Temp Pulse Pulse Resp BP BP Pulse Ox 11/23/20 13:00 80 18 167/82 H 92 11/23/20 11:00 93 11/23/20 09:44 36.4 C L 86 20 112/64 93 Laboratory Results Short CBC 11/23/20 Range/Units Unknown WBC 4.85 (4.8-10.8) K/uL Hgb 14.5 (14.0-18.0) g/dL Hct 41.7 L (42-52) % Plt Count 178 (130-400) K/uL BMP 11/23/20 Unknown Sodium 134 L Potassium 3.1 L Chloride 102 Carbon Dioxide 29 BUN 15 Creatinine 1.22 Glucose 134 H Calcium 8.2 L Cardiac Enzymes 11/23/20 Range/Units Unknown Troponin I 0.103 H* (0-0.045) ng/ml Liver Function 11/23/20 Range/Units Unknown Total Bilirubin 0.5 (0.2-1) mg/dl AST 42 H (15-37) U/L ALT 34 (12-78) U/L Alkaline Phosphatase 73 (45-117) U/L Albumin 2.7 L (3.4-5.0) gm/dl Diagnostic Findings Chest CTA 11/23/20 10:16 CT ANGIOGRAPHY OF THE CHEST, PULMONARY EMBOLUS PROTOCOL CLINICAL HISTORY: hemoptysis, COVID+ on plavix COMPARISON STUDY: Chest February 28, 2018. TECHNIQUE: Following IV administration of 117 mL of Optiray, helical axial images of the chest were obtained utilizing the pulmonary embolus protocol. Maximal intensity projections and sagittal and coronal reformats were viewed on an independent 3D workstation. IV contrast was administered without complication. Automated exposure control was utilized for the study. A dose l owering technique was utilized adhering to the principles of ALARA. CT DOSE: 555.32 mGycm FINDINGS: No pulmonary emboli are identified. There is no thoracic aortic dissection. Mild cardiomegaly is noted as well as moderate coronary artery calcification. There is no pericardial effusion. Small bilateral pleural effusions are noted. There is no pneumothorax. Central airways are patent. There is mild emphysema. There are multiple mildly enlarged mediastinal and right hilar lymph nodes. Index right paratracheal lymph node measures 1.3 cm in short axis diameter. There are several left lobe thyroid nodule. Right thyroid lobe is not visualized. Extensive groundglass opacity within the right upper lobe is noted. Moderate additional multifocal groundglass opacities throughout the lungs are present. IMPRESSION: 1. No pulmonary emboli identified. 2. Multifocal groundglass opacities throughout the lungs with extensive right upper lobe groundglass opacity. The findings favor viral pneumonia. 3. Multiple mildly enlarged mediastinal and right hilar lymph nodes. These are likely reactive. A follow-up chest CT in 3-6 months to ensure resolution is recommended. 4. Small bilateral pleural effusions. 5. Mild emphysema. ACT 112: Negative or not required by law. Electronically signed by: Iain Urbina M.D. 11/23/2020 12:16 PM Code Status & VTE Plan Code Status Patient is a full code as per my discussion with him. VTE Prophylaxis Plan VTE Prophylaxis will be ordered: Yes Supervising Physician Co-Signing Physician Notes Attending addendum: The patient was seen and examined in telemetry unit and in the Covid room He is vaccinated for COVID-19 and has been complaining of cough with blood in it, weakness and wheezing with shortness of breath for the last 7 to 10 days Noted to have desaturation at home and was advised to come to the hospital. During examination he was saturating normally on room air On examination No apparent distress at rest Blood pressure noted to be very high at 187/98 Chestdecreased breath sounds bilaterally, wheezing anteriorly and minimal crackles at the bases HeartS1, S2 no murmur appreciated Abdomenbenign Extremitiesno edema Admission labs, EKG and imaging studies reviewed Has COVID-19 infection with possible bronchitis and hemoptysis Received 1 dose of dexamethasone in emergency room and since does not have any desaturation will not continue dexamethasone and/or remdesivir CRP is elevated but procalcitonin has been negative We will try doxycycline for acute bronchitis Also has mildly elevated troponin likely secondary to COVID-19. Will trend cardiac enzymes but doubt any ACS Agree with assessment and plan as outlined above by Clementina Sanchez
[2020-11-23] MEDS ORDERED: ALBUT/IPRATROP 3MG/0.5MG NEB 3 ML VIAL NEB PRN (17:59)
[2020-11-23] MEDS ORDERED: PATIENT'S HEIGHT AND/OR WEIGHT NEEDED SCH (18:15)
[2020-11-23] MEDS ORDERED: amLODIPine BESYLATE 5 MG TAB PO PRN (18:40)
[2020-11-23] MEDS: ENOXAPARIN INJ 40 MG/0.4 ML SYR SQ SCH (20:09)
[2020-11-23] MEDS: GABAPENTIN 300 MG CAP PO SCH (20:10)
[2020-11-23] MEDS: ROSUVASTATIN CALCIUM 10 MG TAB PO SCH (20:10)
[2020-11-23] MEDS: amLODIPine BESYLATE 5 MG TAB PO SCH (20:10)
[2020-11-23] MEDS: FINASTERIDE 5 MG TAB PO SCH (20:10)
[2020-11-23] MEDS: METOPROLOL SUCC 25MG EXT REL TAB PO SCH (20:12)
[2020-11-23] MEDS: LATANOPROST 0.005% OP SOLN 2.5 ML BTL OPB SCH (20:12)
[2020-11-23] MEDS: TERAZOSIN HCL 1 MG CAP PO SCH (20:13)
[2020-11-23] MEDS: DOXYCYCLINE HYCLATE 100 MG CAP PO SCH (21:31)
[2020-11-23] MEDS ORDERED: IPRATROPIUM BROMIDE NEB SOLN 0.02% 2.5 ML VIAL INH PRN (23:45)
[2020-11-23] MEDS ORDERED: LEVALBUTEROL 1.25MG/0.5ML NEB INH PRN (23:45)
[2020-11-23] MEDS ORDERED: XOPENEX/ATROVENT 1.25mg/0.5MG NEB COMBO NEB PRN (23:50)
[2020-11-23] MEDS: METOPROLOL TARTRATE 1 MG/ML VIAL IV STA (23:50)
[2020-11-23] MEDS ORDERED: METOPROLOL TARTRATE 1 MG/ML VIAL IV ONE (23:57)
[2020-11-24] MEDS: METOPROLOL TARTRATE 1 MG/ML VIAL IV STA (00:02)
[2020-11-24] MEDS: ACETAMINOPHEN 325 MG TAB PO PRN (00:04)
[2020-11-24] MEDS ORDERED: SODIUM CHLORIDE 0.9% 1000ML 1,000 ML IV SCH (00:15)
[2020-11-24] MEDS ORDERED: REMDESIVIR 200 MG in SODIUM CHLORIDE 0.9% 210 ML IV SCH (00:30)
[2020-11-24] MEDS: SODIUM CHLORIDE 0.9% 10ML FLUSH IV SCH ×2 (00:55→22:17)
[2020-11-24 07:00] LABS: Hematocrit (blood only) 41.2 % (42-52); Mean Corpuscular Hemoglobin 31.5 pg (25-34); Mean Corpuscular Volume 92.6 fL (80-100); Mean Platelet Volume 9.6 fL (7.4-10.4); Platelet Count 193 K/uL (130-400); RDW Coefficient of Variation 13.6 % (11.5-14.5); RDW Standard Deviation 46.1 fL (36.4-46.3); Red Blood Count 4.45 M/uL (4.7-6.1); White Blood Count 16.48 K/uL (4.8-10.8)
[2020-11-24 07:14] LABS: Albumin Level 2.2 gm/dl (3.4-5.0); BUN Creatinine Ratio 15.2 (10-20); Bilirubin Direct 0.1 mg/dl (0-0.2); Bilirubin,Total 0.4 mg/dl (0.2-1); Calcium 7.9 mg/dl (8.5-10.1); Creatinine Clr Calc Pharmacy 55.3 ml/min; Est GFR (African American) 57.6 ml/min; Est GFR (Non-African American) 49.7 ml/min; Potassium 3.6 mmol/L (3.5-5.1); Total Protein 6.3 gm/dl (6.4-8.2)
[2020-11-24] MEDS: LEVOTHYROXINE SODIUM 150 MCG TABLET PO SCH (07:36)
[2020-11-24] MEDS: dexAMETHasone 6 MG in SYRINGE 0 ML IV SCH (09:44)
[2020-11-24] MEDS: DOXYCYCLINE HYCLATE 100 MG CAP PO SCH ×2 (09:46→20:04)
[2020-11-24] MEDS: FLUTICASONE FUROATE 100MCG 14 PUFFS/INHALER INH SCH (09:46)
[2020-11-24] MEDS: GABAPENTIN 300 MG CAP PO SCH ×3 (09:47→20:04)
[2020-11-24] MEDS: PANTOprazole 40 MG TAB PO SCH (09:47)
[2020-11-24] MEDS: FUROSEMIDE 20 MG TAB PO SCH (09:47)
[2020-11-24] MEDS ORDERED: FUROSEMIDE 20 MG in SYRINGE 0 ML IV ONE (15:41)
[2020-11-24] MEDS ORDERED: POTASSIUM CHLORIDE CRTAB 20 MEQ TABCR PO ONE (15:42)
[2020-11-24] MEDS ORDERED: FUROSEMIDE 40 MG/4 ML VIAL IV ONE (15:45)
[2020-11-24] MEDS ORDERED: ALBUTEROL 0.083% NEBU SOLN 3 ML VIAL NEB PRN (16:21)
--- NOTE | 2020-11-24 16:51 | Hospitalist Progress Note ---
Date of Service November 24, 2020 Assessment & Plan (1) Pneumonia due to COVID-19 virus: Plan: COVID-19 pneumonia --CTA:. No pulmonary emboli identified. Multifocal groundglass opacities throughout the lungs with extensive right upper lobe groundglass opacity. The fi ndings favor viral pneumonia. Multiple mildly enlarged mediastinal and right hilar lymph nodes. These are likely reactive. A follow-up chest CT in 3-6 months to ensure resolution is recommended. Small bilateral pleural effusions. Mild emphysema. -Normal procalcitonin -CRP 11.6 -Continue remdesivir, dexamethasone Nebs, Lasix. Pulmonary hygiene Continue supplemental oxygen as needed Encourage to prone Hypokalemia Replace electrolytes as needed Minimal Hemoptysis Monitor CBC (2) Coronary artery disease: (3) Elevated troponin: Plan: Cardiac cath 2009 showed nonobstructive CAD -Likely demand ischemia in the setting of acute illness -Mild elevated troponin -Check resting ECHO EKG shows an unchanged LBBB Continue ASA, Plavix, statin, Metoprolol (4) Leg wound, left: Plan: Wound care consulted Continue wound care (5) CKD (chronic kidney disease), stage III: Plan: -Baseline creatinine ~ 1.4 -Monitor renal function (6) History of CVA (cerebrovascular accident): Plan: Continue aspirin, statin (7) History of stent insertion of renal artery: (8) History of right common carotid artery stent placement: Plan: -Continue ASA, Plavix, statin (9) Hypertension: Plan: -BP stable Continue amlodipine, furosemide, metoprolol (10) Hypothyroidism: Plan: -Continue levothyroxine (11) DVT prophylaxis: Plan: -SQ Lovenox Admission and Anticipated Discharge Date Admission Date: November 23, 2020 Subjective Patient is seen and examined bedside States having scant hemoptysis with cough Reports cough associated with dyspnea intermittently Denies any nausea, vomiting, chest pain, dizziness Saturating low 90s on 6 L supplemental oxygen Review of Systems Review of Systems: All systems reviewed & are unremarkable except as noted in Subjective Physical Exam Physical Exam: Physical Exam: Vitals signs as noted above General Appearance:Moderately built and nourished, no apparent distress Head: normocephalic, Atraumatic Eyes: normal inspection, EOMI Neck: supple, Trachea midline Respiratory/Chest: Decreased breath sounds, mild basal crackles Cardiovascular: S1, S2, No murmur Abdomen/GI:Soft, Non tender, Bowel sounds present Extremities/Musculoskeletal:normal inspection, Left leg wound in bandage, R>L LE edema Neurologic/Psych:AAOX3, grossly no focal neurological deficits Skin: normal color, warm Results & Data Results & Data ([facility]) Vital Signs (Past 12 Hours) Vital Signs Temp Pulse Pulse Resp BP Pulse Ox 11/24/20 15:42 36.9 C 85 29 H 131/61 92 11/24/20 10:58 37.2 C 100 H 26 H 173/79 H 92 11/24/20 10:20 82 11/24/20 07:34 36.9 C 90 24 93 11/24/20 07:09 36.4 C L 92 H 29 H 149/68 H 94 11/24/20 06:12 36.6 C 83 26 H 135/62 93 Laboratory Results Short CBC 11/24/20 Range/Units 05:55 WBC 16.48 H D (4.8-10.8) K/uL Hgb 14.0 (14.0-18.0) g/dL Hct 41.2 L (42-52) % Plt Count 193 (130-400) K/uL BMP 11/24/20 05:55 Sodium 139 Potassium 3.6 D Chloride 105 Carbon Dioxide 26 BUN 20 H Creatinine 1.34 Glucose 123 H Calcium 7.9 L Cardiac Enzymes 11/23/20 11/23/20 Range/Units 18:45 23:49 Troponin I 0.051 H* 0.048 H* (0-0.045) ng/ml Liver Function 11/24/20 Range/Units 05:55 Total Bilirubin 0.4 (0.2-1) mg/dl Direct Bilirubin 0.1 (0-0.2) mg/dl AST 56 H (15-37) U/L ALT 42 (12-78) U/L Alkaline Phosphatase 68 (45-117) U/L Albumin 2.2 L (3.4-5.0) gm/dl
--- NOTE | 2020-11-24 16:55 | Electrocardiogram Report ---
Test Reason : Blood Pressure : / mmHG Vent. Rate : 074 BPM Atrial Rate : 074 BPM P-R Int : 156 ms QRS Dur : 152 ms QT Int : 448 ms P-R-T Axes : 039 -20 141 degrees QTc Int : 497 ms Normal sinus rhythm Left bundle branch block Abnormal ECG When compared with ECG of 28-FEB-2018 12:53, Left bundle branch block is now Present Minimal criteria for Septal infarct are no longer Present Confirmed by Blair Garcia ([id number]) on 11/24/2020 4:54:38 PM Referred By: REFERRED SELF Confirmed By:Blair Garcia
[2020-11-24] MEDS ORDERED: ALBUTEROL 0.083% NEBU SOLN 3 ML VIAL NEB SCH (19:00)
[2020-11-24] MEDS: ENOXAPARIN INJ 40 MG/0.4 ML SYR SQ SCH (19:58)
[2020-11-24] MEDS: REMDESIVIR 100 MG in SODIUM CHLORIDE 0.9% 230 ML IV SCH (20:00)
[2020-11-24] MEDS: METOPROLOL SUCC 25MG EXT REL TAB PO SCH (20:02)
[2020-11-24] MEDS: ROSUVASTATIN CALCIUM 10 MG TAB PO SCH (20:03)
[2020-11-24] MEDS: amLODIPine BESYLATE 5 MG TAB PO SCH (20:03)
[2020-11-24] MEDS: TERAZOSIN HCL 1 MG CAP PO SCH (20:03)
[2020-11-24] MEDS: FINASTERIDE 5 MG TAB PO SCH (20:04)
[2020-11-24] MEDS: ASPIRIN 81 MG ECTAB PO SCH (20:04)
[2020-11-24] MEDS: BRIMONIDINE TARTRATE 0.2% 5ML OPB SCH (20:05)
[2020-11-24] MEDS: LATANOPROST 0.005% OP SOLN 2.5 ML BTL OPB SCH (20:05)
[2020-11-24] MEDS: TIMOLOL MALEATE 0.5% OP SOLN 5 ML BTL OPB SCH (20:06)
[2020-11-25] MEDS: LEVOTHYROXINE SODIUM 150 MCG TABLET PO SCH (06:15)
[2020-11-25 07:09] LABS: Hematocrit (blood only) 44.7 % (42-52); Hemoglobin 15.4 g/dL (14.0-18.0); Mean Corpuscular Hemoglobin 31.8 pg (25-34); Mean Corpuscular Hgb Conc 34.5 g/dL (32-36); Mean Corpuscular Volume 92.2 fL (80-100); Platelet Count 229 K/uL (130-400); RDW Coefficient of Variation 13.9 % (11.5-14.5); RDW Standard Deviation 46.9 fL (36.4-46.3); Red Blood Count 4.85 M/uL (4.7-6.1); White Blood Count 14.69 K/uL (4.8-10.8)
[2020-11-25 07:43] LABS: C Reactive Protein 17.2 mg/dl (0-0.29); Creatinine Clr Calc Pharmacy 63.6 ml/min; Est GFR (African American) 68.6 ml/min; Est GFR (Non-African American) 59.1 ml/min; Potassium 3.8 mmol/L (3.5-5.1)
[2020-11-25] MEDS: DOXYCYCLINE HYCLATE 100 MG CAP PO SCH ×2 (08:45→20:56)
[2020-11-25] MEDS: dexAMETHasone 6 MG in SYRINGE 0 ML IV SCH (08:45)
[2020-11-25] MEDS: CLOPIDOGREL BISULFATE 75 MG TAB PO SCH (08:46)
[2020-11-25] MEDS: GABAPENTIN 300 MG CAP PO SCH ×3 (08:46→20:54)
[2020-11-25] MEDS: PANTOprazole 40 MG TAB PO SCH (08:47)
[2020-11-25] MEDS: FUROSEMIDE 20 MG TAB PO SCH (08:47)
[2020-11-25] MEDS: BRIMONIDINE TARTRATE 0.2% 5ML OPB SCH ×2 (08:48→20:58)
[2020-11-25] MEDS: TIMOLOL MALEATE 0.5% OP SOLN 5 ML BTL OPB SCH ×2 (08:49→20:59)
[2020-11-25] MEDS: FLUTICASONE FUROATE 100MCG 14 PUFFS/INHALER INH SCH (08:49)
[2020-11-25] MEDS ORDERED: POTASSIUM CHLORIDE CRTAB 20 MEQ TABCR PO ONE (16:19)
[2020-11-25] MEDS ORDERED: MAGNESIUM SULFATE / D5W 1 GM/100 ML BAG IV ONE (16:19)
--- NOTE | 2020-11-25 16:30 | Hospitalist Progress Note ---
Date of Service November 25, 2020 Assessment & Plan (1) Pneumonia due to COVID-19 virus: Plan: COVID-19 pneumonia --CTA:. No pulmonary emboli identified. Multifocal groundglass opacities throughout the lungs with extensive right upper lobe groundglass opacity. The fi ndings favor viral pneumonia. Multiple mildly enlarged mediastinal and right hilar lymph nodes. These are likely reactive. A follow-up chest CT in 3-6 months to ensure resolution is recommended. Small bilateral pleural effusions. Mild emphysema. -Normal procalcitonin -CRP 11.6>17.20 -Continue remdesivir, dexamethasone Nebs, Lasix PRN Pulmonary hygiene Continue supplemental oxygen as needed Encourage to prone Consider pulmonary evaluation if deteriorates Currently on 15 L supplemental oxygen NSVT Increase metoprolol to 12.5 mg twice daily Monitor and replace electrolytes as needed Hypokalemia Replace electrolytes as needed Minimal Hemoptysis Monitor CBC Hb stable (2) Coronary artery disease: (3) Elevated troponin: Plan: Cardiac cath 2009 showed nonobstructive CAD -Likely demand ischemia in the setting of acute illness -Mild elevated troponin -ECHO: Mild global hypokinesis, EF 45 to 50%, grade 1 diastolic dysfunction, mild mitral stenosis EKG shows an unchanged LBBB Continue ASA, Plavix, statin, Metoprolol (4) Leg wound, left: Plan: Wound care consulted Continue wound care (5) CKD (chronic kidney disease), stage III: Plan: -Baseline creatinine ~ 1.4 -Monitor renal function (6) History of CVA (cerebrovascular accident): Plan: Continue aspirin, statin (7) History of stent insertion of renal artery: (8) History of right common carotid artery stent placement: Plan: -Continue ASA, Plavix, statin (9) Hypertension: Plan: -BP stable Continue amlodipine, furosemide, metoprolol (10) Hypothyroidism: Plan: -Continue levothyroxine (11) DVT prophylaxis: Plan: -SQ Lovenox Admission and Anticipated Discharge Date Admission Date: November 23, 2020 Subjective Patient is seen and examined bedside Persistent cough associated with dyspnea this morning Currently on 15 L supplemental oxygen Discussed with patient's daughter over the phone Denies any chest pain, nausea, vomiting, dizziness, abd pain NSVT noted by RN this afternoon Review of Systems Review of Systems: All systems reviewed & are unremarkable except as noted in Subjective Physical Exam Physical Exam: Physical Exam: Vitals signs as noted above General Appearance:Moderately built and nourished, no apparent distress Head: normocephalic, Atraumatic Eyes: normal inspection, EOMI Neck: supple, Trachea midline Respiratory/Chest: Decreased breath sounds, mild basal crackles Cardiovascular: S1, S2, No murmur Abdomen/GI:Soft, Non tender, Bowel sounds present Extremities/Musculoskeletal:normal inspection, Left leg wound in bandage, R>L LE edema Neurologic/Psych:AAOX3, grossly no focal neurological deficits Skin: normal color, warm Results & Data Results & Data ([facility]) Vital Signs (Past 12 Hours) Vital Signs Temp Pulse Pulse Resp BP BP Pulse Ox 11/25/20 15:46 36.9 C 74 12 123/64 95 11/25/20 11:37 36.8 C 85 33 H 141/71 H 89 L 11/25/20 08:00 89 11/25/20 07:16 37.0 C 90 23 157/78 H 91 11/25/20 06:24 30 H 92 Laboratory Results Short CBC 11/25/20 Range/Units 06:34 WBC 14.69 H (4.8-10.8) K/uL Hgb 15.4 (14.0-18.0) g/dL Hct 44.7 (42-52) % Plt Count 229 (130-400) K/uL BMP 11/25/20 06:34 Sodium 139 Potassium 3.8 Chloride 105 Carbon Dioxide 28 BUN 23 H Creatinine 1.16 Glucose 120 H Calcium 9.0 Liver Function 11/25/20 Range/Units 06:34 AST 56 H (15-37) U/L ALT 48 (12-78) U/L
[2020-11-25] MEDS: METOPROLOL SUCC 25MG EXT REL TAB PO SCH ×2 (18:24→20:54)
[2020-11-25] MEDS: ENOXAPARIN INJ 40 MG/0.4 ML SYR SQ SCH (20:53)
[2020-11-25] MEDS: REMDESIVIR 100 MG in SODIUM CHLORIDE 0.9% 230 ML IV SCH (20:53)
[2020-11-25] MEDS: ROSUVASTATIN CALCIUM 10 MG TAB PO SCH (20:55)
[2020-11-25] MEDS: FINASTERIDE 5 MG TAB PO SCH (20:55)
[2020-11-25] MEDS: TERAZOSIN HCL 1 MG CAP PO SCH (20:56)
[2020-11-25] MEDS: amLODIPine BESYLATE 5 MG TAB PO SCH (20:57)
[2020-11-25] MEDS: ASPIRIN 81 MG ECTAB PO SCH (20:57)
[2020-11-25] MEDS: LATANOPROST 0.005% OP SOLN 2.5 ML BTL OPB SCH (21:00)
[2020-11-26] MEDS: SODIUM CHLORIDE 0.9% 10ML FLUSH IV SCH (00:57)
[2020-11-26] MEDS: LEVOTHYROXINE SODIUM 150 MCG TABLET PO SCH (06:09)
[2020-11-26 06:38] LABS: Hematocrit (blood only) 41.7 % (42-52); Hemoglobin 14.1 g/dL (14.0-18.0); Mean Corpuscular Hemoglobin 31.5 pg (25-34); Mean Corpuscular Hgb Conc 33.8 g/dL (32-36); Mean Corpuscular Volume 93.3 fL (80-100); Mean Platelet Volume 9.9 fL (7.4-10.4); Platelet Count 242 K/uL (130-400); RDW Coefficient of Variation 13.8 % (11.5-14.5); Red Blood Count 4.47 M/uL (4.7-6.1); White Blood Count 11.58 K/uL (4.8-10.8)
[2020-11-26 07:10] LABS: BUN Creatinine Ratio 21.4 (10-20); Calcium 8.4 mg/dl (8.5-10.1); Creatinine Clr Calc Pharmacy 60.8 ml/min; Est GFR (African American) 63.2 ml/min; Est GFR (Non-African American) 54.6 ml/min
[2020-11-26 08:21] LABS: Potassium 3.9 mmol/L (3.5-5.1)
[2020-11-26 08:25] LABS: Magnesium 2.3 mg/dl (1.8-2.4)
[2020-11-26] MEDS: FUROSEMIDE 20 MG TAB PO SCH (08:37)
[2020-11-26] MEDS: dexAMETHasone 6 MG in SYRINGE 0 ML IV SCH (08:37)
[2020-11-26] MEDS: FLUTICASONE FUROATE 100MCG 14 PUFFS/INHALER INH SCH (08:38)
[2020-11-26] MEDS: DOXYCYCLINE HYCLATE 100 MG CAP PO SCH ×2 (08:38→22:31)
[2020-11-26] MEDS: GABAPENTIN 300 MG CAP PO SCH ×3 (08:38→22:32)
[2020-11-26] MEDS: METOPROLOL SUCC 25MG EXT REL TAB PO SCH ×2 (08:39→22:30)
[2020-11-26] MEDS: PANTOprazole 40 MG TAB PO SCH (08:42)
[2020-11-26] MEDS: TIMOLOL MALEATE 0.5% OP SOLN 5 ML BTL OPB SCH ×2 (08:43→22:29)
[2020-11-26] MEDS: BRIMONIDINE TARTRATE 0.2% 5ML OPB SCH ×2 (08:43→22:29)
--- NOTE | 2020-11-26 13:46 | Hospitalist Progress Note ---
Date of Service November 26, 2020 Assessment & Plan (1) Pneumonia due to COVID-19 virus: Plan: COVID-19 pneumonia --CTA:. No pulmonary emboli identified. Multifocal groundglass opacities throughout the lungs with extensive right upper lobe groundglass opacity. The findings favor viral pneumonia. Multiple mildly enlarged mediastinal and right hilar lymph nodes. These are likely reactive. A follow-up chest CT in 3-6 months to ensure resolution is recommended. Small bilateral pleural effusions. Mild emphysema. -Normal procalcitonin -CRP 11.6>17.20 -Continue remdesivir, dexamethasone Nebs, Lasix PRN Pulmonary hygiene Remains in terms of nasal cannula. Overall he reports he is doing okay. Leukocytosis is improving. Patient remains afebrile. Hemodynamically doing okay. NSVT Increase metoprolol to 12.5 mg twice daily Monitor and replace electrolytes as needed Hypokalemia - resolved Minimal Hemoptysis Monitor CBC Hb stable (2) Coronary artery disease: (3) Elevated troponin: Plan: Cardiac cath 2009 showed nonobstructive CAD -Likely demand ischemia in the setting of acute illness -Mild elevated troponin -ECHO: Mild global hypokinesis, EF 45 to 50%, grade 1 diastolic dysfunction, mild mitral stenosis EKG shows an unchanged LBBB Continue ASA, Plavix, statin, Metoprolol (4) Leg wound, left: Plan: Wound care consulted Continue wound care (5) CKD (chronic kidney disease), stage III: Plan: -Baseline creatinine ~ 1.4 -Monitor renal function (6) History of CVA (cerebrovascular accident): Plan: Continue aspirin, statin (7) History of stent insertion of renal artery: (8) History of right common carotid artery stent placement: Plan: -Continue ASA, Plavix, statin (9) Hypertension: Plan: -BP stable Continue amlodipine, furosemide, metoprolol (10) Hypothyroidism: Plan: -Continue levothyroxine (11) DVT prophylaxis: Plan: -SQ Lovenox Admission and Anticipated Discharge Date Admission Date: November 23, 2020 Subjective Patient is doing okay this morning. Reports he feels better. States that shortness of breath is improved does have persistent cough. Currently on 10 L of nasal cannula. Denies any chest pain or abdominal pain. Denies any diarrhea or dysuria. Appetite is okay. Review of Systems Review of Systems: All systems reviewed & are unremarkable except as noted in HPI & below Physical Exam Physical Exam: General: A&Ox3. HENT: NCAT, MMM, EOMI Eyes: PERRLA Neck: Supple, normal range of motion CVS: normal rate and rhythm Resp: b/l decrease breath sounds Abdomen: Soft, ND/NT Extremities: No c/c/e Neuro: face symmetric, no focal deficit Skin: no rashes/lesions/errythema MSK: no joint swelling/erythema Results & Data Results & Data ([facility]) Vital Signs (Past 12 Hours) Vital Signs Temp Pulse Resp BP BP Pulse Ox 11/26/20 11:23 36.6 C 72 19 136/73 96 11/26/20 07:09 36.4 C L 75 20 140/66 91 11/26/20 04:09 36.7 C 72 20 148/79 H 91
[2020-11-26] MEDS: REMDESIVIR 100 MG in SODIUM CHLORIDE 0.9% 230 ML IV SCH (22:27)
[2020-11-26] MEDS: FINASTERIDE 5 MG TAB PO SCH (22:30)
[2020-11-26] MEDS: ASPIRIN 81 MG ECTAB PO SCH (22:31)
[2020-11-26] MEDS: ROSUVASTATIN CALCIUM 10 MG TAB PO SCH (22:32)
[2020-11-26] MEDS: TERAZOSIN HCL 1 MG CAP PO SCH (22:32)
[2020-11-26] MEDS: amLODIPine BESYLATE 5 MG TAB PO SCH (22:32)
[2020-11-26] MEDS: ENOXAPARIN INJ 40 MG/0.4 ML SYR SQ SCH (22:35)
[2020-11-26] MEDS: LATANOPROST 0.005% OP SOLN 2.5 ML BTL OPB SCH (22:35)
[2020-11-27] MEDS: SODIUM CHLORIDE 0.9% 10ML FLUSH IV SCH (00:56)
[2020-11-27] MEDS ORDERED: POTASSIUM CHLORIDE CRTAB 20 MEQ TABCR PO STA (00:57)
[2020-11-27] MEDS ORDERED: METOPROLOL TARTRATE 25 MG TAB PO STA (00:57)
[2020-11-27] MEDS ORDERED: XOPENEX/ATROVENT 1.25mg/0.5MG NEB COMBO NEB PRN (00:58)
[2020-11-27] MEDS ORDERED: IPRATROPIUM BROMIDE NEB SOLN 0.02% 2.5 ML VIAL INH PRN (01:00)
[2020-11-27] MEDS ORDERED: LEVALBUTEROL 1.25MG/0.5ML NEB INH PRN (01:00)
[2020-11-27] MEDS: LEVOTHYROXINE SODIUM 150 MCG TABLET PO SCH ×2 (05:29→06:00)
[2020-11-27 07:08] LABS: Calcium 8.9 mg/dl (8.5-10.1); Creatinine Clr Calc Pharmacy 69.6 ml/min; Est GFR (African American) 74.7 ml/min; Est GFR (Non-African American) 64.5 ml/min; Magnesium 2.2 mg/dl (1.8-2.4); Potassium 5.2 mmol/L (3.5-5.1)
[2020-11-27] MEDS: GABAPENTIN 300 MG CAP PO SCH ×3 (08:24→21:50)
[2020-11-27] MEDS: dexAMETHasone 6 MG in SYRINGE 0 ML IV SCH (08:24)
[2020-11-27] MEDS: CLOPIDOGREL BISULFATE 75 MG TAB PO SCH (08:25)
[2020-11-27] MEDS: DOXYCYCLINE HYCLATE 100 MG CAP PO SCH ×2 (08:25→21:50)
[2020-11-27] MEDS: PANTOprazole 40 MG TAB PO SCH (08:25)
[2020-11-27] MEDS: METOPROLOL SUCC 25MG EXT REL TAB PO SCH ×2 (08:25→21:50)
[2020-11-27] MEDS: FLUTICASONE FUROATE 100MCG 14 PUFFS/INHALER INH SCH (08:26)
[2020-11-27] MEDS: BRIMONIDINE TARTRATE 0.2% 5ML OPB SCH ×2 (08:27→21:51)
[2020-11-27] MEDS: FUROSEMIDE 20 MG TAB PO SCH (08:27)
[2020-11-27] MEDS: TIMOLOL MALEATE 0.5% OP SOLN 5 ML BTL OPB SCH ×2 (08:27→21:51)
[2020-11-27] MEDS ORDERED: FUROSEMIDE 40 MG in SYRINGE 0 ML IV ONE (12:38)
--- NOTE | 2020-11-27 12:40 | Hospitalist Progress Note ---
Date of Service November 27, 2020 Assessment & Plan (1) Pneumonia due to COVID-19 virus: Plan: COVID-19 pneumonia --CTA:. No pulmonary emboli identified. Multifocal groundglass opacities throughout the lungs with extensive right upper lobe groundglass opacity. The findings favor viral pneumonia. Multiple mildly enlarged mediastinal and right hilar lymph nodes. These are likely reactive. A follow-up chest CT in 3-6 months to ensure resolution is recommended. Small bilateral pleural effusions. Mild emphysema. -Normal procalcitonin -CRP 11.6>17.20 -Continue remdesivir, dexamethasone Pulmonary hygiene Remains on 15 L nasal cannula. Leukocytosis is improving. Patient remains afebrile. Systolic blood pressure on the higher side. Can increase amlodipine to 10 mg daily if persists. LFTs are starting to elevate. Continue to monitor daily. Continue with [employer] p.o. Lasix 20 mg daily. In addition we will order IV Lasix 40 mg today once. Monitor ins and outs along with daily weights. NSVT Increase metoprolol to 12.5 mg twice daily Monitor and replace electrolytes as needed Hypokalemia - resolved Minimal Hemoptysis Monitor CBC Hb stable (2) Coronary artery disease: (3) Elevated troponin: Plan: Cardiac cath 2009 showed nonobstructive CAD -Likely demand ischemia in the setting of acute illness -Mild elevated troponin -ECHO: Mild global hypokinesis, EF 45 to 50%, grade 1 diastolic dysfunction, mild mitral stenosis EKG shows an unchanged LBBB Continue ASA, Plavix, statin, Metoprolol (4) Leg wound, left: Plan: Wound care consulted Continue wound care (5) CKD (chronic kidney disease), stage III: Plan: -Baseline creatinine ~ 1.4 -Monitor renal function (6) History of CVA (cerebrovascular accident): Plan: Continue aspirin, statin (7) History of stent insertion of renal artery: (8) History of right common carotid artery stent placement: Plan: -Continue ASA, Plavix, statin (9) Hypertension: Plan: -BP stable Continue amlodipine, furosemide, metoprolol (10) Hypothyroidism: Plan: -Continue levothyroxine (11) DVT prophylaxis: Plan: -SQ Lovenox Admission and Anticipated Discharge Date Admission Date: November 23, 2020 Subjective Patient reports he had a rough night. He was short of breath but currently doing better. He remains on 15 L of nasal cannula. Reports disrupted sleep due to people coming in and out overnight. Does have nonproductive cough. Denies any chest pain or abdominal pain. Denies any diarrhea or dysuria. Other review of system is negative. Review of Systems Review of Systems: All systems reviewed & are unremarkable except as noted in HPI & below Physical Exam Physical Exam: General: A&Ox3. HENT: NCAT, MMM, EOMI Eyes: PERRLA Neck: Supple, normal range of motion CVS: normal rate and rhythm Resp: b/l decrease breath sounds Abdomen: Soft, ND/NT Extremities: No c/c/e Neuro: face symmetric, no focal deficit Skin: no rashes/lesions/errythema MSK: no joint swelling/erythema Results & Data Results & Data ([facility]) Vital Signs (Past 12 Hours) Vital Signs Temp Pulse Pulse Pulse Resp BP BP 11/27/20 11:26 36.4 C L 71 24 147/75 H 11/27/20 09:39 71 11/27/20 07:28 36.5 C 71 23 151/68 H 11/27/20 03:25 36.9 C 69 17 138/66 11/27/20 00:42 36.8 C 68 18 160/88 H Pulse Ox 11/27/20 11:26 97 11/27/20 09:39 11/27/20 07:28 97 11/27/20 03:25 98 11/27/20 00:42 92
[2020-11-27] MEDS: FUROSEMIDE 40 MG/4 ML VIAL IV SCH (16:40)
[2020-11-27] MEDS: REMDESIVIR 100 MG in SODIUM CHLORIDE 0.9% 230 ML IV SCH (21:47)
[2020-11-27] MEDS: ENOXAPARIN INJ 40 MG/0.4 ML SYR SQ SCH (21:48)
[2020-11-27] MEDS: FINASTERIDE 5 MG TAB PO SCH (21:49)
[2020-11-27] MEDS: TERAZOSIN HCL 1 MG CAP PO SCH (21:49)
[2020-11-27] MEDS: ASPIRIN 81 MG ECTAB PO SCH (21:49)
[2020-11-27] MEDS: ROSUVASTATIN CALCIUM 10 MG TAB PO SCH (21:49)
[2020-11-27] MEDS: amLODIPine BESYLATE 5 MG TAB PO SCH (21:51)
[2020-11-27] MEDS: LATANOPROST 0.005% OP SOLN 2.5 ML BTL OPB SCH (21:51)
[2020-11-28] MEDS: SODIUM CHLORIDE 0.9% 10ML FLUSH IV SCH (00:03)
[2020-11-28] MEDS: LEVOTHYROXINE SODIUM 150 MCG TABLET PO SCH (05:58)
[2020-11-28 07:11] LABS: Basophils # (auto) 0.01 K/uL (0-0.2); Basophils % (auto) 0.1 %; Hematocrit (blood only) 47.8 % (42-52); Hemoglobin 16.3 g/dL (14.0-18.0); Immature Granulocytes # (auto) 0.09 K/uL (0.00-0.02); Immature Granulocytes % (auto) 0.8 %; Lymphocytes # (auto) 0.76 K/uL (1.2-3.4); Lymphocytes % (auto) 6.8 %; Mean Corpuscular Hemoglobin 31.4 pg (25-34); Mean Corpuscular Hgb Conc 34.1 g/dL (32-36); Mean Corpuscular Volume 92.1 fL (80-100); Mean Platelet Volume 9.9 fL (7.4-10.4); Monocytes # (auto) 0.79 K/uL (0.11-0.59); Monocytes % (auto) 7.1 %; Neutrophils # (auto) 9.52 K/uL (1.4-6.5); Neutrophils % (auto) 85.2 %; Platelet Count 290 K/uL (130-400); RDW Coefficient of Variation 13.6 % (11.5-14.5); RDW Standard Deviation 46.5 fL (36.4-46.3); Red Blood Count 5.19 M/uL (4.7-6.1); White Blood Count 11.17 K/uL (4.8-10.8)
[2020-11-28] MEDS: METOPROLOL SUCC 25MG EXT REL TAB PO SCH ×2 (07:57→20:36)
[2020-11-28] MEDS: DOXYCYCLINE HYCLATE 100 MG CAP PO SCH ×2 (07:57→20:36)
[2020-11-28] MEDS: dexAMETHasone 6 MG in SYRINGE 0 ML IV SCH (07:57)
[2020-11-28] MEDS: FLUTICASONE FUROATE 100MCG 14 PUFFS/INHALER INH SCH (07:58)
[2020-11-28] MEDS: FUROSEMIDE 20 MG TAB PO SCH (07:58)
[2020-11-28] MEDS: PANTOprazole 40 MG TAB PO SCH (07:58)
[2020-11-28] MEDS: BRIMONIDINE TARTRATE 0.2% 5ML OPB SCH ×2 (07:59→20:39)
[2020-11-28] MEDS: GABAPENTIN 300 MG CAP PO SCH ×3 (07:59→20:36)
[2020-11-28 08:00] LABS: Calcium 8.8 mg/dl (8.5-10.1); Creatinine Clr Calc Pharmacy 70.3 ml/min; Est GFR (African American) 78.2 ml/min; Est GFR (Non-African American) 67.5 ml/min
[2020-11-28] MEDS: TIMOLOL MALEATE 0.5% OP SOLN 5 ML BTL OPB SCH ×2 (08:00→20:40)
--- NOTE | 2020-11-28 08:11 | Hospitalist Progress Note ---
Date of Service November 28, 2020 Assessment & Plan (1) Pneumonia due to COVID-19 virus: Plan: Completed remdesivir course just after midnight, remains on daily dexamethasone. Feels improved today. Initially presented with hemoptysis which is resolved. Still requiring high amounts of oxygen supplementation. Denies cough, fever, or chills. Moving around independently. Cont to prone and reposition as able. Cont steroids, cont supportive care. He received Lasix yesterday with net 1.8L out in the last 24 hours, so will hold off on further Lasix at this time. (2) Coronary artery disease: Plan: History of renal artery stenosis status post stent in 2004, also history of carotid artery stent following which he had a small stroke affecting his right eye. In 2009 he had a cardiac catheterization showing nonocclusive coronary disease. Follows with [facility] cardiology. Currently denies chest pain and appears stable. EKG shows an unchanged LBBB, Continue medical management (3) Elevated troponin: Plan: Likely demand ischemia in the setting of acute illness, -ECHO: Mild global hypokinesis, EF 45 to 50%, grade 1 diastolic dysfunction, mild mitral stenosis (4) NSVT (nonsustained ventricular tachycardia): Plan: Home Toprol 12.5mg qHS was increased to BID this admission. Monitor and replace electrolytes as needed. (5) Leg wound, left: Plan: Wound care consulted Continue wound care (6) CKD (chronic kidney disease), stage III: Plan: renal function is currently at baseline. (7) History of CVA (cerebrovascular accident): Plan: Continue aspirin, statin (8) History of stent insertion of renal artery: Plan: continue current medical therapy, natbly with labile blood pressure. Will restart his home losartan. (9) History of right common carotid artery stent placement: Plan: -Continue ASA, Plavix, statin (10) Hypertension: Plan: Slightly elevated this morning, with improved creatinine, will restart his home losartan now. (11) Hypothyroidism: Plan: -Continue levothyroxine per home regimen. (12) DVT prophylaxis: Plan: -SQ Lovenox Full Code Dispo-uncertain at this time. Ninoska David DO [facility] Hospitalist Admission and Anticipated Discharge Date Admission Date: November 23, 2020 Subjective 80 yo M admitted with covid pneumonia reports doing well today denies pain no issues wtih BMs-denies diarrhea, constipation no issues with urination reportedly eating well denies fevers and chills-reports feeling cold from the light gown feels he is improving Review of Systems Review of Systems: At least ten systems were reviewed and negative except as indicated in HPI above. Physical Exam Physical Exam: CONSTITUTIONAL: WNWD, vitals as above, generally well- appearing EYES: normal conjunctivae, no scleral icterus, NAD ENT: external ear and nose normal, MMM NECK: trachea midline RESPIRATORY: clear to auscultation bilaterally, no crackles, rales or wheezes, normal respiratory effort, supplemental nasal canual (green catheter) in place CARDIOVASCULAR: regular rate and rhythm, S1 and 2 heard without murmurs, gallops or rubs, no JVD, no peripheral edema CHEST: inspection of chest was normal GASTROINTESTINAL: soft, nontender, ND, no guarding MUSCULOSKELETAL: strength 5/5 throughout, head is normocephalic and atraumatic SKIN: warm and dry NEUROLOGIC: CN 2-12 grossly intact, normal cognition, normal speech, no tremor, no gross focal deficit. PSYCHIATRIC: alert cooperative and oriented to person, place and time. Results & Data Results & Data ([facility]) Vital Signs (Past 12 Hours) Vital Signs Temp Pulse Resp BP Pulse Ox 11/28/20 02:01 37.0 C 84 16 157/68 H 90 11/27/20 23:43 36.6 C 84 22 176/86 H 90 Laboratory Results Short CBC 11/28/20 Range/Units 06:17 WBC 11.17 H (4.8-10.8) K/uL Hgb 16.3 (14.0-18.0) g/dL Hct 47.8 (42-52) % Plt Count 290 (130-400) K/uL BMP 11/28/20 06:17 Sodium 137 Potassium 4.0 D Chloride 105 Carbon Dioxide 30 BUN 25 H Creatinine 1.04 Glucose 102 H Calcium 8.8 Liver Function 11/28/20 Range/Units 06:17 AST 68 H (15-37) U/L ALT 104 H (12-78) U/L Medications Administered Current Inpatient Medications Acetaminophen (Acetaminophen 325 Mg Tab) 650 mg PO Q4H PRN PRN Reason: Pain or Fever Stop: 12/23/20 17:58 Last Admin: 11/24/20 00:04 Dose: 650 mg Documented by: Amlodipine Besylate (Amlodipine Besylate 5 Mg Tab) 5 mg PO HS [facility] Stop: 12/23/20 20:59 Last Admin: 11/27/20 21:51 Dose: 5 mg Documented by: Amlodipine Besylate (Amlodipine Besylate 5 Mg Tab) 5 mg PO HS PRN PRN Reason: systolic 160 or greater Stop: 12/23/20 18:39 Aspirin (Aspirin 81 Mg Ectab) 81 mg PO HS [facility] Stop: 12/24/20 20:59 Last Admin: 11/27/20 21:49 Dose: 81 mg Documented by: Brimonidine Tartrate (Brimonidine Tartrate 0.2% 5ml) 1 drops OPB BID [facility] Stop: 12/24/20 20:59 Last Admin: 11/28/20 07:59 Dose: 1 drops Documented by: Clopidogrel Bisulfate (Clopidogrel Bisulfate 75 Mg Tab) 75 mg PO Q2D@0900 [facility] Stop: 12/25/20 08:59 Last Admin: 11/27/20 08:25 Dose: 75 mg Documented by: Doxycycline Hyclate (Doxycycline Hyclate 100 Mg Cap) 100 mg PO BID [facility] Stop: 11/30/20 20:59 Last Admin: 11/28/20 07:57 Dose: 100 mg Documented by: Enoxaparin Sodium (Enoxaparin Inj 40 Mg/0.4 Ml Syr) 40 mg SQ Q24H [facility] Stop: 12/23/20 18:59 Last Admin: 11/27/20 21:48 Dose: 40 mg Documented by: Finasteride (Finasteride 5 Mg Tab) 5 mg PO HS [facility]; Protocol Stop: 12/23/20 20:59 Last Admin: 11/27/20 21:49 Dose: 5 mg Documented by: Fluticasone Furoate (Fluticasone Furoate 100mcg 14 Puffs/Inhaler) 1 puffs INH QAM [facility] Stop: 12/24/20 08:59 Last Admin: 11/28/20 07:58 Dose: 1 puffs Documented by: Furosemide (Furosemide 20 Mg Tab) 20 mg PO QAM [facility] Stop: 12/24/20 08:59 Last Admin: 11/28/20 07:58 Dose: 20 mg Documented by: Furosemide (Furosemide 40 Mg/4 Ml Vial) 40 mg IV TODAY@1300 [facility] Stop: 11/28/20 23:59 Last Admin: 11/27/20 16:40 Dose: 40 mg Documented by: Gabapentin (Gabapentin 300 Mg Cap) 300 mg PO TID [facility] Stop: 12/23/20 20:59 Last Admin: 11/28/20 07:59 Dose: 300 mg Documented by: Dexamethasone 6 mg/ Syringe 1.5 mls @ 1 mls/min IV DAILY [facility] Stop: 12/04/20 08:59 Last Admin: 11/28/20 07:57 Dose: 1 mls/min Documented by: Ipratropium [place] (Ipratropium [place] Neb Soln 0.02% 2.5 Ml Vial) 0.5 mg INH Q4H PRN PRN Reason: SOB OR WHEEZING Stop: 12/23/20 23:44 Ipratropium [place] (Ipratropium [place] Neb Soln 0.02% 2.5 Ml Vial) 0.5 mg INH Q4H PRN PRN Reason: SOB/WHEEZING Stop: 12/27/20 00:59 Latanoprost (Latanoprost 0.005% Op Soln 2.5 Ml Btl) 1 drops OPB HS [facility] Stop: 12/23/20 20:59 Last Admin: 11/27/20 21:51 Dose: 1 drops Documented by: Levalbuterol HCl (Levalbuterol 1.25mg/0.5ml Neb) 1.25 mg INH Q4H PRN PRN Reason: SOB OR WHEEZING Stop: 12/23/20 23:44 Levalbuterol HCl (Levalbuterol 1.25mg/0.5ml Neb) 1.25 mg INH Q4H PRN PRN Reason: SOB/WHEEZING Stop: 12/27/20 00:59 Levothyroxine Sodium (Levothyroxine Sodium 150 Mcg Tablet) [facility] Stop: 12/24/20 06:29 Last Admin: 11/28/20 05:58 Dose: Not Given Documented by: Metoprolol Succinate (Metoprolol Succ 25mg Ext Rel Tab) 12.5 mg PO BID [facility] Stop: 12/25/20 16:29 Last Admin: 11/28/20 07:57 Dose: 12.5 mg Documented by: Pantoprazole Sodium (Pantoprazole 40 Mg Tab) 40 mg PO DAILY [facility]; Protocol Stop: 12/24/20 08:59 Last Admin: 11/28/20 07:58 Dose: 40 mg Documented by: Rosuvastatin Calcium (Rosuvastatin Calcium 10 Mg Tab) 10 mg PO HS [facility] Stop: 12/23/20 20:59 Last Admin: 11/27/20 21:49 Dose: 10 mg Documented by: Terazosin HCl (Terazosin Hcl 1 Mg Cap) 2 mg PO HS [facility] Stop: 12/23/20 20:59 Last Admin: 11/27/20 21:49 Dose: 2 mg Documented by: Timolol Maleate (Timolol Maleate 0.5% Op Soln 5 Ml Btl) 1 drops OPB BID [facility] Stop: 12/24/20 20:59 Last Admin: 11/28/20 08:00 Dose: 1 drops Documented by:
[2020-11-28] MEDS: LOSARTAN POTASSIUM 50 MG TAB PO SCH (13:23)
[2020-11-28] MEDS: FUROSEMIDE 40 MG/4 ML VIAL IV SCH (14:32)
[2020-11-28] MEDS: ENOXAPARIN INJ 40 MG/0.4 ML SYR SQ SCH (18:39)
[2020-11-28] MEDS: amLODIPine BESYLATE 5 MG TAB PO SCH (20:36)
[2020-11-28] MEDS: ASPIRIN 81 MG ECTAB PO SCH (20:36)
[2020-11-28] MEDS: TERAZOSIN HCL 1 MG CAP PO SCH (20:36)
[2020-11-28] MEDS: ROSUVASTATIN CALCIUM 10 MG TAB PO SCH (20:36)
[2020-11-28] MEDS: FINASTERIDE 5 MG TAB PO SCH (20:36)
[2020-11-28] MEDS: LATANOPROST 0.005% OP SOLN 2.5 ML BTL OPB SCH (20:40)
[2020-11-29] MEDS: LEVOTHYROXINE SODIUM 150 MCG TABLET PO SCH (06:15)
[2020-11-29] MEDS: TIMOLOL MALEATE 0.5% OP SOLN 5 ML BTL OPB SCH ×2 (10:01→20:54)
[2020-11-29] MEDS: FLUTICASONE FUROATE 100MCG 14 PUFFS/INHALER INH SCH (10:01)
[2020-11-29] MEDS: BRIMONIDINE TARTRATE 0.2% 5ML OPB SCH ×3 (10:02→20:54)
[2020-11-29] MEDS: dexAMETHasone 6 MG in SYRINGE 0 ML IV SCH (10:02)
[2020-11-29] MEDS: METOPROLOL SUCC 25MG EXT REL TAB PO SCH ×2 (10:02→20:54)
[2020-11-29] MEDS: GABAPENTIN 300 MG CAP PO SCH ×3 (10:03→20:53)
[2020-11-29] MEDS: LOSARTAN POTASSIUM 50 MG TAB PO SCH (10:03)
[2020-11-29] MEDS: CLOPIDOGREL BISULFATE 75 MG TAB PO SCH (10:04)
[2020-11-29] MEDS: DOXYCYCLINE HYCLATE 100 MG CAP PO SCH ×2 (10:04→20:53)
[2020-11-29] MEDS: FUROSEMIDE 20 MG TAB PO SCH ×2 (10:04→10:21)
[2020-11-29] MEDS: PANTOprazole 40 MG TAB PO SCH (10:04)
[2020-11-29] MEDS ORDERED: FUROSEMIDE 20 MG in SYRINGE 0 ML IV ONE (11:02)
[2020-11-29] MEDS: FUROSEMIDE 20 MG in SYRINGE 0 ML IV SCH (11:26)
[2020-11-29] MEDS: ENOXAPARIN INJ 40 MG/0.4 ML SYR SQ SCH (17:53)
--- NOTE | 2020-11-29 17:54 | Hospitalist Progress Note ---
Date of Service November 29, 2020 Assessment & Plan (1) Pneumonia due to COVID-19 virus: Plan: Completed remdesivir course ,remains on daily dexamethasone. Feels well today. Initially presented with hemoptysis which is resolved. Still requiring high amounts of oxygen supplementation, giving furosemide 20mg IV now. Denies cough, fever, or chills. Moving around independently. Cont to prone and reposition as able. Cont steroids, cont supportive care. (2) Coronary artery disease: Plan: History of renal artery stenosis status post stent in 2004, also history of carotid artery stent following which he had a small stroke affecting his right eye. In 2009 he had a cardiac catheterization showing nonocclusive coronary disease. Follows with [facility] cardiology. Currently denies chest pain and appears stable. EKG shows an unchanged LBBB, Continue medical management (3) Elevated troponin: Plan: Likely demand ischemia in the setting of acute illness, -ECHO: Mild global hypokinesis, EF 45 to 50%, grade 1 diastolic dysfunction, mild mitral stenosis. Denies chest pain today. (4) NSVT (nonsustained ventricular tachycardia): Plan: Home Toprol 12.5mg qHS was increased to BID this admission. Monitor and replace electrolytes as needed. (5) Leg wound, left: Plan: Wound care consulted Continue wound care (6) CKD (chronic kidney disease), stage III: Plan: renal function is currently at baseline. Monitor BMP in am with intermittent furosemide. (7) History of CVA (cerebrovascular accident): Plan: Continue aspirin, statin (8) History of stent insertion of renal artery: (9) History of right common carotid artery stent placement: Plan: -Continue ASA, Plavix, statin (10) Hypertension: Plan: Controlled on current therapy. (11) Hypothyroidism: Plan: -Continue levothyroxine per home regimen. (12) DVT prophylaxis: Plan: -SQ Lovenox Full Code Dispo-uncertain at this time. Ninoska David DO [facility] Hospitalist Admission and Anticipated Discharge Date Admission Date: November 23, 2020 Subjective 80 yo M admitted with covid pneumonia reports doing well today denies pain no issues wtih BMs-denies diarrhea, constipation reportedly eating well Feels his breathing is improving Review of Systems Review of Systems: At least ten systems were reviewed and negative except as indicated in HPI above. Physical Exam Physical Exam: CONSTITUTIONAL: WNWD, vitals as above, generally well- appearing, NAD, sitting in bedside chair. EYES: normal conjunctivae, no scleral icterus, NAD ENT: external ear and nose normal, MMM NECK: trachea midline RESPIRATORY: clear to auscultation bilaterally, no crackles, rales or wheezes, normal respiratory effort, supplemental nasal canula (green catheter) in place CARDIOVASCULAR: regular rate and rhythm, S1 and 2 heard without murmurs, gallops or rubs, no JVD, no peripheral edema CHEST: inspection of chest was normal GASTROINTESTINAL: soft, nontender, ND, no guarding MUSCULOSKELETAL: strength 5/5 throughout, head is normocephalic and atraumatic SKIN: warm and dry NEUROLOGIC: CN 2-12 grossly intact, normal cognition, normal speech, no tremor, no gross focal deficit. PSYCHIATRIC: alert cooperative and oriented to person, place and time. Results & Data Results & Data ([facility]) Vital Signs (Past 12 Hours) Vital Signs Temp Pulse Pulse Resp BP Pulse Ox 11/29/20 16:27 36.5 C 77 19 120/59 L 95 11/29/20 15:29 73 11/29/20 11:11 36.5 C 81 18 130/54 L 98 11/29/20 09:00 85 11/29/20 07:30 36.4 C L 76 19 135/62 88 L Medications Administered Current Inpatient Medications Acetaminophen (Acetaminophen 325 Mg Tab) 650 mg PO Q4H PRN PRN Reason: Pain or Fever Stop: 12/23/20 17:58 Last Admin: 11/24/20 00:04 Dose: 650 mg Documented by: Amlodipine Besylate (Amlodipine Besylate 5 Mg Tab) 5 mg PO HS [facility] Stop: 12/23/20 20:59 Last Admin: 11/28/20 20:36 Dose: 5 mg Documented by: Amlodipine Besylate (Amlodipine Besylate 5 Mg Tab) 5 mg PO HS PRN PRN Reason: systolic 160 or greater Stop: 12/23/20 18:39 Aspirin (Aspirin 81 Mg Ectab) 81 mg PO HS [facility] Stop: 12/24/20 20:59 Last Admin: 11/28/20 20:36 Dose: 81 mg Documented by: Brimonidine Tartrate (Brimonidine Tartrate 0.2% 5ml) 1 drops OPB BID [facility] Stop: 12/24/20 20:59 Last Admin: 11/29/20 10:12 Dose: Not Given Documented by: Clopidogrel Bisulfate (Clopidogrel Bisulfate 75 Mg Tab) 75 mg PO Q2D@0900 [facility] Stop: 12/25/20 08:59 Last Admin: 11/29/20 10:04 Dose: 75 mg Documented by: Doxycycline Hyclate (Doxycycline Hyclate 100 Mg Cap) 100 mg PO BID [facility] Stop: 11/30/20 20:59 Last Admin: 11/29/20 10:04 Dose: 100 mg Documented by: Enoxaparin Sodium (Enoxaparin Inj 40 Mg/0.4 Ml Syr) 40 mg SQ Q24H [facility] Stop: 12/23/20 18:59 Last Admin: 11/29/20 17:53 Dose: 40 mg Documented by: Finasteride (Finasteride 5 Mg Tab) 5 mg PO HS [facility]; Protocol Stop: 12/23/20 20:59 Last Admin: 11/28/20 20:36 Dose: 5 mg Documented by: Fluticasone Furoate (Fluticasone Furoate 100mcg 14 Puffs/Inhaler) 1 puffs INH QAM [facility] Stop: 12/24/20 08:59 Last Admin: 11/29/20 10:01 Dose: 1 puffs Documented by: Furosemide (Furosemide 40 Mg/4 Ml Vial) 20 mg IV QAM [facility] Stop: 12/30/20 08:59 Gabapentin (Gabapentin 300 Mg Cap) 300 mg PO TID [facility] Stop: 12/23/20 20:59 Last Admin: 11/29/20 13:46 Dose: 300 mg Documented by: Dexamethasone 6 mg/ Syringe 1.5 mls @ 1 mls/min IV DAILY [facility] Stop: 12/04/20 08:59 Last Admin: 11/29/20 10:02 Dose: 1 mls/min Documented by: Furosemide 20 mg/ Syringe 2 mls @ 4 mls/min IV DAILY [facility] Stop: 12/29/20 09:29 Last Admin: 11/29/20 11:26 Dose: 4 mls/min Documented by: Ipratropium [place] (Ipratropium [place] Neb Soln 0.02% 2.5 Ml Vial) 0.5 mg INH Q4H PRN PRN Reason: SOB OR WHEEZING Stop: 12/23/20 23:44 Ipratropium [place] (Ipratropium [place] Neb Soln 0.02% 2.5 Ml Vial) 0.5 mg INH Q4H PRN PRN Reason: SOB/WHEEZING Stop: 12/27/20 00:59 Latanoprost (Latanoprost 0.005% Op Soln 2.5 Ml Btl) 1 drops OPB HS [facility] Stop: 12/23/20 20:59 Last Admin: 11/28/20 20:40 Dose: 1 drops Documented by: Levalbuterol HCl (Levalbuterol 1.25mg/0.5ml Neb) 1.25 mg INH Q4H PRN PRN Reason: SOB OR WHEEZING Stop: 12/23/20 23:44 Last Admin: 11/29/20 01:03 Dose: 1.25 mg Documented by: Levalbuterol HCl (Levalbuterol 1.25mg/0.5ml Neb) 1.25 mg INH Q4H PRN PRN Reason: SOB/WHEEZING Stop: 12/27/20 00:59 Levothyroxine Sodium (Levothyroxine Sodium 150 Mcg Tablet) [facility] Stop: 12/24/20 06:29 Last Admin: 11/29/20 06:15 Dose: 150 mcg Documented by: Losartan Potassium (Losartan Potassium 50 Mg Tab) 50 mg PO DAILY [facility] Stop: 12/28/20 11:44 Last Admin: 11/29/20 10:03 Dose: 50 mg Documented by: Metoprolol Succinate (Metoprolol Succ 25mg Ext Rel Tab) 12.5 mg PO BID [facility] Stop: 12/25/20 16:29 Last Admin: 11/29/20 10:02 Dose: 12.5 mg Documented by: Pantoprazole Sodium (Pantoprazole 40 Mg Tab) 40 mg PO DAILY [facility]; Protocol Stop: 12/24/20 08:59 Last Admin: 11/29/20 10:04 Dose: 40 mg Documented by: Rosuvastatin Calcium (Rosuvastatin Calcium 10 Mg Tab) 10 mg PO [facility] Stop: 12/23/20 20:59 Last Admin: 11/28/20 20:36 Dose: 10 mg Documented by: Terazosin HCl (Terazosin Hcl 1 Mg Cap) 2 mg PO HS [facility] Stop: 12/23/20 20:59 Last Admin: 11/28/20 20:36 Dose: 2 mg Documented by: Timolol Maleate (Timolol Maleate 0.5% Op Soln 5 Ml Btl) 1 drops OPB BID [facility] Stop: 12/24/20 20:59 Last Admin: 11/29/20 10:01 Dose: 1 drops Documented by:
[2020-11-29] MEDS: ROSUVASTATIN CALCIUM 10 MG TAB PO SCH (20:53)
[2020-11-29] MEDS: TERAZOSIN HCL 1 MG CAP PO SCH (20:53)
[2020-11-29] MEDS: amLODIPine BESYLATE 5 MG TAB PO SCH (20:53)
[2020-11-29] MEDS: ASPIRIN 81 MG ECTAB PO SCH (20:54)
[2020-11-29] MEDS: LATANOPROST 0.005% OP SOLN 2.5 ML BTL OPB SCH (20:54)
[2020-11-29] MEDS: FINASTERIDE 5 MG TAB PO SCH (20:54)
[2020-11-30] MEDS: LEVOTHYROXINE SODIUM 150 MCG TABLET PO SCH (06:10)
[2020-11-30 07:51] LABS: BUN Creatinine Ratio 25.9 (10-20); Calcium 8.9 mg/dl (8.5-10.1); Creatinine Clr Calc Pharmacy 59.9 ml/min; Est GFR (African American) 64.5 ml/min; Est GFR (Non-African American) 55.6 ml/min; Magnesium 2.3 mg/dl (1.8-2.4); Potassium 4.2 mmol/L (3.5-5.1)
[2020-11-30] MEDS ORDERED: FUROSEMIDE 40 MG/4 ML VIAL IV SCH (09:00)
[2020-11-30] MEDS ORDERED: FUROSEMIDE 20 MG in SYRINGE 0 ML IV SCH (09:00)
[2020-11-30] MEDS: dexAMETHasone 6 MG in SYRINGE 0 ML IV SCH (09:38)
[2020-11-30] MEDS: FLUTICASONE FUROATE 100MCG 14 PUFFS/INHALER INH SCH (09:39)
[2020-11-30] MEDS: FUROSEMIDE 20 MG in SYRINGE 0 ML IV SCH (09:39)
[2020-11-30] MEDS: METOPROLOL SUCC 25MG EXT REL TAB PO SCH ×2 (09:39→21:21)
[2020-11-30] MEDS: DOXYCYCLINE HYCLATE 100 MG CAP PO SCH (09:40)
[2020-11-30] MEDS: LOSARTAN POTASSIUM 50 MG TAB PO SCH (09:40)
[2020-11-30] MEDS: GABAPENTIN 300 MG CAP PO SCH ×3 (09:40→21:22)
[2020-11-30] MEDS: PANTOprazole 40 MG TAB PO SCH (09:40)
[2020-11-30] MEDS: BRIMONIDINE TARTRATE 0.2% 5ML OPB SCH ×3 (09:41→21:30)
[2020-11-30] MEDS: TIMOLOL MALEATE 0.5% OP SOLN 5 ML BTL OPB SCH ×2 (09:42→21:24)
--- NOTE | 2020-11-30 17:39 | Hospitalist Progress Note ---
Date of Service November 30, 2020 Assessment & Plan (1) Pneumonia due to COVID-19 virus: Plan: Completed remdesivir course ,remains on daily dexamethasone. Feels well today. Initially presented with hemoptysis which is resolved. Still requiring high amounts of oxygen supplementation. Denies cough, fever, or chills. Moving around independently. Cont to prone and reposition as able. Cont steroids, cont supportive care. Lasix 20mg IV daily to keep him overall net negative. (2) Coronary artery disease: Plan: History of renal artery stenosis status post stent in 2004, also history of prajapati tid artery stent following which he had a small stroke affecting his right eye. In 2009 he had a cardiac catheterization showing nonocclusive coronary disease. Follows with [facility] cardiology. Currently denies chest pain and appears stable. EKG shows an unchanged LBBB, Continue medical management (3) Elevated troponin: Plan: Likely demand ischemia in the setting of acute illness, -ECHO: Mild global hypokinesis, EF 45 to 50%, grade 1 diastolic dysfunction, mild mitral stenosis. No further workup needed at this time. (4) NSVT (nonsustained ventricular tachycardia): Plan: Home Toprol 12.5mg qHS was increased to BID this admission. Monitor and replace electrolytes as needed. (5) Leg wound, left: Plan: Wound care consulted Continue wound care (6) CKD (chronic kidney disease), stage III: Plan: renal function is currently at baseline. Monitor BMP in am with intermittent furosemide. (7) History of CVA (cerebrovascular accident): Plan: Continue aspirin, statin (8) History of stent insertion of renal artery: (9) History of right common carotid artery stent placement: Plan: -Continue ASA, Plavix, statin (10) Hypertension: Plan: Controlled on current therapy. (11) Hypothyroidism: Plan: -Continue levothyroxine per home regimen. (12) DVT prophylaxis: Plan: -SQ Lovenox Full Code Dispo-uncertain at this time. Cont PCU. Ninoska David DO [facility] Hospitalist Admission and Anticipated Discharge Date Admission Date: November 23, 2020 Subjective 80 yo M admitted with covid pneumonia reports doing well today denies pain no issues wtih BMs-denies diarrhea, constipation reportedly eating well Feels his breathing is improving Review of Systems Review of Systems: At least ten systems were reviewed and negative except as indicated in HPI above. Physical Exam Physical Exam: CONSTITUTIONAL: WNWD, vitals as above, generally well- appearing, NAD, sitting in bedside chair. EYES: normal conjunctivae, no scleral icterus, NAD ENT: external ear and nose normal, MMM NECK: trachea midline RESPIRATORY: clear to auscultation bilaterally, no crackles, rales or wheezes, normal respiratory effort, supplemental nasal canula (green catheter) in place CARDIOVASCULAR: regular rate and rhythm, S1 and 2 heard without murmurs, gallops or rubs, no JVD, no peripheral edema CHEST: inspection of chest was normal GASTROINTESTINAL: soft, nontender, ND, no guarding MUSCULOSKELETAL: strength 5/5 throughout, head is normocephalic and atraumatic SKIN: warm and dry, small skin abrasion on right anterior leg covered wtih optifoam. No surrounding erythema or drainage. NEUROLOGIC: CN 2-12 grossly intact, normal cognition, normal speech, no tremor, no gross focal deficit. PSYCHIATRIC: alert cooperative and oriented to person, place and time. Results & Data Results & Data ([facility]) Vital Signs (Past 12 Hours) Vital Signs Temp Pulse Pulse Pulse Resp BP Pulse Ox 11/30/20 16:00 81 11/30/20 15:05 36.8 C 77 25 H 117/58 L 94 11/30/20 11:43 36.6 C 76 18 130/67 95 11/30/20 09:00 77 11/30/20 07:20 36.5 C 74 19 145/74 H 95 Pulse Ox 11/30/20 16:00 95 11/30/20 15:05 11/30/20 11:43 11/30/20 09:00 11/30/20 07:20 Laboratory Results [facility] 11/30/20 06:22 Sodium 137 Potassium 4.2 Chloride 99 Carbon Dioxide 35 H BUN 32 H Creatinine 1.22 Glucose 114 H Calcium 8.9 Diagnostic Findings [facility] 11/30/20 06:22 Sodium 137 Potassium 4.2 Chloride 99 Carbon Dioxide 35 H BUN 32 H Creatinine 1.22 Glucose 114 H Calcium 8.9 Medications Administered Current Inpatient Medications Acetaminophen (Acetaminophen 325 Mg Tab) 650 mg PO Q4H PRN PRN Reason: Pain or Fever Stop: 12/23/20 17:58 Last Admin: 11/24/20 00:04 Dose: 650 mg Documented by: Amlodipine Besylate (Amlodipine Besylate 5 Mg Tab) 5 mg PO HS [place] Stop: 12/23/20 20:59 Last Admin: 11/29/20 20:53 Dose: 5 mg Documented by: Amlodipine Besylate (Amlodipine Besylate 5 Mg Tab) 5 mg PO HS PRN PRN Reason: systolic 160 or greater Stop: 12/23/20 18:39 Aspirin (Aspirin 81 Mg Ectab) 81 mg PO HS [place] Stop: 12/24/20 20:59 Last Admin: 11/29/20 20:54 Dose: 81 mg Documented by: Brimonidine Tartrate (Brimonidine Tartrate 0.2% 5ml) 1 drops OPB BID [place] Stop: 12/24/20 20:59 Last Admin: 11/30/20 09:41 Dose: Not Given Documented by: Clopidogrel Bisulfate (Clopidogrel Bisulfate 75 Mg Tab) 75 mg PO Q2D@0900 [place] Stop: 12/25/20 08:59 Last Admin: 11/29/20 10:04 Dose: 75 mg Documented by: Doxycycline Hyclate (Doxycycline Hyclate 100 Mg Cap) 100 mg PO BID [place] Stop: 11/30/20 20:59 Last Admin: 11/30/20 09:40 Dose: 100 mg Documented by: Enoxaparin Sodium (Enoxaparin Inj 40 Mg/0.4 Ml Syr) 40 mg SQ Q24H [place] Stop: 12/23/20 18:59 Last Admin: 11/29/20 17:53 Dose: 40 mg Documented by: Finasteride (Finasteride 5 Mg Tab) 5 mg PO HS [place]; Protocol Stop: 12/23/20 20:59 Last Admin: 11/29/20 20:54 Dose: 5 mg Documented by: Fluticasone Furoate (Fluticasone Furoate 100mcg 14 Puffs/Inhaler) 1 puffs INH QAM [place] Stop: 12/24/20 08:59 Last Admin: 11/30/20 09:39 Dose: 1 puffs Documented by: Gabapentin (Gabapentin 300 Mg Cap) 300 mg PO TID [place] Stop: 12/23/20 20:59 Last Admin: 11/30/20 14:11 Dose: 300 mg Documented by: Dexamethasone 6 mg/ Syringe 1.5 mls @ 1 mls/min IV DAILY [place] Stop: 12/04/20 08:59 Last Admin: 11/30/20 09:38 Dose: 1 mls/min Documented by: Furosemide 20 mg/ Syringe 2 mls @ 4 mls/min IV DAILY [place] Stop: 12/29/20 09:29 Last Admin: 11/30/20 09:39 Dose: 4 mls/min Documented by: Ipratropium [place] (Ipratropium [place] Neb Soln 0.02% 2.5 Ml Vial) 0.5 mg INH Q4H PRN PRN Reason: SOB OR WHEEZING Stop: 12/23/20 23:44 Ipratropium [place] (Ipratropium [place] Neb Soln 0.02% 2.5 Ml Vial) 0.5 mg INH Q4H PRN PRN Reason: SOB/WHEEZING Stop: 12/27/20 00:59 Latanoprost (Latanoprost 0.005% Op Soln 2.5 Ml Btl) 1 drops OPB HS [place] Stop: 12/23/20 20:59 Last Admin: 11/29/20 20:54 Dose: 1 drops Documented by: Levalbuterol HCl (Levalbuterol 1.25mg/0.5ml Neb) 1.25 mg INH Q4H PRN PRN Reason: SOB OR WHEEZING Stop: 12/23/20 23:44 Last Admin: 11/29/20 01:03 Dose: 1.25 mg Documented by: Levalbuterol HCl (Levalbuterol 1.25mg/0.5ml Neb) 1.25 mg INH Q4H PRN PRN Reason: SOB/WHEEZING Stop: 12/27/20 00:59 Levothyroxine Sodium (Levothyroxine Sodium 150 Mcg Tablet) 150 mcg PO DAILYBB [place] Stop: 12/24/20 06:29 Last Admin: 11/30/20 06:10 Dose: 150 mcg Documented by: Losartan Potassium (Losartan Potassium 50 Mg Tab) 50 mg PO DAILY [place] Stop: 12/28/20 11:44 Last Admin: 11/30/20 09:40 Dose: 50 mg Documented by: Metoprolol Succinate (Metoprolol Succ 25mg Ext Rel Tab) 12.5 mg PO BID [place] Stop: 12/25/20 16:29 Last Admin: 11/30/20 09:39 Dose: 12.5 mg Documented by: Pantoprazole Sodium (Pantoprazole 40 Mg Tab) 40 mg PO DAILY [facility]; Protocol Stop: 12/24/20 08:59 Last Admin: 11/30/20 09:40 Dose: 40 mg Documented by: Rosuvastatin Calcium (Rosuvastatin Calcium 10 Mg Tab) 10 mg PO HS [facility] Stop: 12/23/20 20:59 Last Admin: 11/29/20 20:53 Dose: 10 mg Documented by: Terazosin HCl (Terazosin Hcl 1 Mg Cap) 2 mg PO HS [facility] Stop: 12/23/20 20:59 Last Admin: 11/29/20 20:53 Dose: 2 mg Documented by: Timolol Maleate (Timolol Maleate 0.5% Op Soln 5 Ml Btl) 1 drops OPB BID [facility] Stop: 12/24/20 20:59 Last Admin: 11/30/20 09:42 Dose: Not Given Documented by:
[2020-11-30] MEDS: ENOXAPARIN INJ 40 MG/0.4 ML SYR SQ SCH (18:48)
[2020-11-30] MEDS: FINASTERIDE 5 MG TAB PO SCH (21:21)
[2020-11-30] MEDS: amLODIPine BESYLATE 5 MG TAB PO SCH (21:22)
[2020-11-30] MEDS: ASPIRIN 81 MG ECTAB PO SCH (21:22)
[2020-11-30] MEDS: LATANOPROST 0.005% OP SOLN 2.5 ML BTL OPB SCH (21:23)
[2020-11-30] MEDS: ROSUVASTATIN CALCIUM 10 MG TAB PO SCH (21:24)
[2020-11-30] MEDS: TERAZOSIN HCL 1 MG CAP PO SCH (21:24)
[2020-12-01] MEDS: LEVOTHYROXINE SODIUM 150 MCG TABLET PO SCH (05:51)
[2020-12-01 06:24] LABS: Hematocrit (blood only) 42.6 % (42-52); Hemoglobin 14.5 g/dL (14.0-18.0); Mean Corpuscular Hemoglobin 31.5 pg (25-34); Mean Corpuscular Volume 92.4 fL (80-100); Mean Platelet Volume 9.3 fL (7.4-10.4); Platelet Count 401 K/uL (130-400); RDW Coefficient of Variation 13.5 % (11.5-14.5); Red Blood Count 4.61 M/uL (4.7-6.1)
[2020-12-01 06:54] LABS: BUN Creatinine Ratio 27.9 (10-20); Calcium 8.5 mg/dl (8.5-10.1); Creatinine Clr Calc Pharmacy 65.6 ml/min; Est GFR (African American) 72.3 ml/min; Est GFR (Non-African American) 62.4 ml/min; Magnesium 2.3 mg/dl (1.8-2.4); Potassium 3.9 mmol/L (3.5-5.1)
[2020-12-01] MEDS: LOSARTAN POTASSIUM 50 MG TAB PO SCH (08:16)
[2020-12-01] MEDS: METOPROLOL SUCC 25MG EXT REL TAB PO SCH ×2 (08:17→19:56)
[2020-12-01] MEDS: CLOPIDOGREL BISULFATE 75 MG TAB PO SCH (08:17)
[2020-12-01] MEDS: GABAPENTIN 300 MG CAP PO SCH ×3 (08:17→19:58)
[2020-12-01] MEDS: FLUTICASONE FUROATE 100MCG 14 PUFFS/INHALER INH SCH (08:18)
[2020-12-01] MEDS: PANTOprazole 40 MG TAB PO SCH (08:18)
[2020-12-01] MEDS: BRIMONIDINE TARTRATE 0.2% 5ML OPB SCH ×2 (08:19→19:57)
[2020-12-01] MEDS: FUROSEMIDE 20 MG in SYRINGE 0 ML IV SCH (08:26)
[2020-12-01] MEDS: TIMOLOL MALEATE 0.5% OP SOLN 5 ML BTL OPB SCH ×2 (08:26→19:57)
[2020-12-01] MEDS: dexAMETHasone 6 MG in SYRINGE 0 ML IV SCH (08:26)
--- NOTE | 2020-12-01 12:38 | Hospitalist Progress Note ---
Date of Service December 01, 2020 Assessment & Plan (1) Pneumonia due to COVID-19 virus: Plan: Overall doing okay. Remains on 14 L of nasal cannula. Remains a stable and does not appear to be in any distress. Completed course of remdesivir. Continue with Decadron. Continue IV Lasix 20 mg daily to keep balance negative. Continue monitor ins and outs along with daily weights. (2) Coronary artery disease: Plan: History of renal artery stenosis status post stent in 2004, also history of carotid artery stent following which he had a small stroke affecting his right eye. In 2009 he had a cardiac catheterization showing nonocclusive coronary disease. Follows with [facility] cardiology. Overall patient is doing hemodynamically okay. Absence of any chest pain. (3) Elevated troponin: Plan: Likely secondary to demand ischemia. Continue to monitor. ECHO: Mild global hypokinesis, EF 45 to 50%, grade 1 diastolic dysfunction, mild mitral stenosis. (4) NSVT (nonsustained ventricular tachycardia): Plan: Home Toprol 12.5mg qHS was increased to BID this admission. Monitor and replace electrolytes as needed. (5) Leg wound, left: Plan: Wound care consulted Continue wound care (6) CKD (chronic kidney disease), stage III: Plan: renal function is currently at baseline. Monitor BMP in am with intermittent furosemide. (7) History of CVA (cerebrovascular accident): Plan: Continue aspirin, statin (8) History of stent insertion of renal artery: (9) History of right common carotid artery stent placement: Plan: -Continue ASA, Plavix, statin (10) Hypertension: Plan: Controlled on current therapy. (11) Hypothyroidism: Plan: -Continue levothyroxine per home regimen. (12) DVT prophylaxis: Plan: -SQ Lovenox Full Code Dispo-uncertain at this time. Cont PCU. Admission and Anticipated Discharge Date Admission Date: November 23, 2020 Subjective Doing okay this morning. Denies any worsening shortness of breath or cough. States his appetite is okay. Currently on 4 L of nasal cannula. Rest of the review of system is negative. Review of Systems Review of Systems: All systems reviewed & are unremarkable except as noted in HPI & below Physical Exam Physical Exam: General: A&Ox3. HENT: NCAT, MMM, EOMI Eyes: PERRLA Neck: Supple, normal range of motion CVS: normal rate and rhythm Resp: b/l decrease breath sounds Abdomen: Soft, ND/NT Extremities: No c/c/e Neuro: face symmetric, no focal deficit Skin: no rashes/lesions/errythema MSK: no joint swelling/erythema Results & Data Results & [facility]) Vital Signs (Past 12 Hours) Vital Signs Temp Pulse Pulse Resp BP BP Pulse Ox 12/01/20 11:06 36.5 C 75 19 101/57 L 98 12/01/20 07:30 36.6 C 78 21 152/64 H 95 12/01/20 03:43 63 12/01/20 03:18 36.5 C 65 18 127/60 93
[2020-12-01] MEDS: ENOXAPARIN INJ 40 MG/0.4 ML SYR SQ SCH (18:36)
[2020-12-01] MEDS: ASPIRIN 81 MG ECTAB PO SCH (19:55)
[2020-12-01] MEDS: amLODIPine BESYLATE 5 MG TAB PO SCH (19:56)
[2020-12-01] MEDS: LATANOPROST 0.005% OP SOLN 2.5 ML BTL OPB SCH (19:58)
[2020-12-01] MEDS: TERAZOSIN HCL 1 MG CAP PO SCH (19:58)
[2020-12-01] MEDS: ROSUVASTATIN CALCIUM 10 MG TAB PO SCH (19:58)
[2020-12-01] MEDS: FINASTERIDE 5 MG TAB PO SCH (19:59)
[2020-12-02] MEDS: LEVOTHYROXINE SODIUM 150 MCG TABLET PO SCH (06:20)
[2020-12-02 06:29] LABS: Basophils # (auto) 0.01 K/uL (0-0.2); Basophils % (auto) 0.1 %; Eosinophils # (auto) 0.14 K/uL (0-0.5); Eosinophils % (auto) 1.1 %; Hemoglobin 14.2 g/dL (14.0-18.0); Immature Granulocytes # (auto) 0.14 K/uL (0.00-0.02); Immature Granulocytes % (auto) 1.1 %; Lymphocytes # (auto) 0.88 K/uL (1.2-3.4); Lymphocytes % (auto) 6.7 %; Mean Corpuscular Hemoglobin 31.1 pg (25-34); Mean Corpuscular Volume 94.3 fL (80-100); Mean Platelet Volume 9.2 fL (7.4-10.4); Monocytes # (auto) 0.48 K/uL (0.11-0.59); Monocytes % (auto) 3.6 %; Neutrophils # (auto) 11.56 K/uL (1.4-6.5); Neutrophils % (auto) 87.4 %; Platelet Count 420 K/uL (130-400); RDW Coefficient of Variation 13.5 % (11.5-14.5); RDW Standard Deviation 46.8 fL (36.4-46.3); Red Blood Count 4.56 M/uL (4.7-6.1); White Blood Count 13.21 K/uL (4.8-10.8)
[2020-12-02 07:05] LABS: BUN Creatinine Ratio 22.5 (10-20); Calcium 8.4 mg/dl (8.5-10.1); Creatinine Clr Calc Pharmacy 53.7 ml/min; Est GFR (African American) 56.6 ml/min; Est GFR (Non-African American) 48.8 ml/min; Potassium 4.3 mmol/L (3.5-5.1)
[2020-12-02] MEDS: PANTOprazole 40 MG TAB PO SCH (07:59)
[2020-12-02] MEDS: GABAPENTIN 300 MG CAP PO SCH ×3 (07:59→21:41)
[2020-12-02] MEDS: METOPROLOL SUCC 25MG EXT REL TAB PO SCH ×2 (08:00→21:37)
[2020-12-02] MEDS: FUROSEMIDE 20 MG in SYRINGE 0 ML IV SCH (08:00)
[2020-12-02] MEDS: LOSARTAN POTASSIUM 50 MG TAB PO SCH (08:00)
[2020-12-02] MEDS: dexAMETHasone 6 MG in SYRINGE 0 ML IV SCH (08:01)
[2020-12-02] MEDS: BRIMONIDINE TARTRATE 0.2% 5ML OPB SCH ×2 (08:02→22:47)
[2020-12-02] MEDS: FLUTICASONE FUROATE 100MCG 14 PUFFS/INHALER INH SCH (08:02)
[2020-12-02] MEDS: TIMOLOL MALEATE 0.5% OP SOLN 5 ML BTL OPB SCH ×2 (08:04→21:29)
[2020-12-02] MEDS ORDERED: POLYETHYLENE (MIRALAX) 17 GM PACK PO PRN (12:11)
--- NOTE | 2020-12-02 12:11 | Hospitalist Progress Note ---
Date of Service December 02, 2020 Assessment & Plan (1) Pneumonia due to COVID-19 virus: Plan: Overall doing okay. Remains on 10 L of nasal cannula. Remains stable and does not appear to be in any distress. Completed course of remdesivir. Continue with Decadron. Continue IV Lasix 20 mg daily to keep balance negative. Continue monitor ins and outs along with daily weights. Continue to wean down from the oxygen. We will consult PT/OT. (2) Coronary artery disease: Plan: History of renal artery stenosis status post stent in 2004, also history of carotid artery stent following which he had a small stroke affecting his right eye. In 2009 he had a cardiac catheterization showing nonocclusive coronary disease. Follows with [facility] cardiology. Overall patient is doing hemodynamically okay. Absence of any chest pain. (3) Elevated troponin: Plan: Likely secondary to demand ischemia. Continue to monitor. ECHO: Mild global hypokinesis, EF 45 to 50%, grade 1 diastolic dysfunction, mild mitral stenosis. (4) NSVT (nonsustained ventricular tachycardia): Plan: Home Toprol 12.5mg qHS was increased to BID this admission. Monitor and replace electrolytes as needed. (5) Leg wound, left: Plan: Wound care consulted Continue wound care (6) CKD (chronic kidney disease), stage III: Plan: renal function is currently at baseline. Monitor BMP in am with intermittent furosemide. (7) History of CVA (cerebrovascular accident): Plan: Continue aspirin, statin (8) History of stent insertion of renal artery: (9) History of right common carotid artery stent placement: Plan: -Continue ASA, Plavix, statin (10) Hypertension: Plan: Controlled on current therapy. (11) Hypothyroidism: Plan: -Continue levothyroxine per home regimen. (12) DVT prophylaxis: Plan: -SQ Lovenox Full Code Dispo-uncertain at this time. Cont PCU. Admission and Anticipated Discharge Date Admission Date: November 23, 2020 Subjective Overall doing okay and resting comfortably. Remains on 10 L of nasal cannula. Reports he was up throughout the night and was worried about his who got admitted yesterday due to Covid. Have not had a bowel movement for the past 3 days. Orts feeling nauseous earlier but no episodes of vomiting. Denies any chest pain or abdominal pain. Does have minimal productive cough now. Review of Systems Review of Systems: All systems reviewed & are unremarkable except as noted in HPI & below Physical Exam Physical Exam: General: A&Ox3. HENT: NCAT, MMM, EOMI Eyes: PERRLA Neck: Supple, normal range of motion CVS: normal rate and rhythm Resp: b/l decrease breath sounds Abdomen: Soft, ND/NT Extremities: No c/c/e Neuro: face symmetric, no focal deficit Skin: no rashes/lesions/errythema MSK: no joint swelling/erythema Results & Data Results & Data ([facility]) Vital Signs (Past 12 Hours) Vital Signs Temp Pulse Pulse Resp BP BP Pulse Ox 12/02/20 11:21 36.8 C 84 22 111/54 L 95 12/02/20 07:32 36.3 C L 77 21 150/76 H 89 L 12/02/20 04:26 89 20 143/66 H 91 12/02/20 00:42 36.8 C 67 12 122/58 L 97 12/02/20 00:32 64
[2020-12-02] MEDS: DOCUSATE SODIUM 100 MG CAP PO SCH ×2 (15:29→21:42)
[2020-12-02] MEDS: SENNA 8.6 MG TAB PO SCH (15:29)
[2020-12-02] MEDS: ENOXAPARIN INJ 40 MG/0.4 ML SYR SQ SCH (19:28)
[2020-12-02] MEDS ORDERED: SODIUM CHLORIDE 0.65% NA SOLN 45 ML (OCEAN) PRN (20:45)
[2020-12-02] MEDS: LATANOPROST 0.005% OP SOLN 2.5 ML BTL OPB SCH (21:30)
[2020-12-02] MEDS: TERAZOSIN HCL 1 MG CAP PO SCH (21:39)
[2020-12-02] MEDS: ROSUVASTATIN CALCIUM 10 MG TAB PO SCH (21:40)
[2020-12-02] MEDS: FINASTERIDE 5 MG TAB PO SCH (21:41)
[2020-12-02] MEDS: ASPIRIN 81 MG ECTAB PO SCH (21:42)
[2020-12-02] MEDS: amLODIPine BESYLATE 5 MG TAB PO SCH (21:43)
[2020-12-03] MEDS: LEVOTHYROXINE SODIUM 150 MCG TABLET PO SCH (06:32)
[2020-12-03] MEDS: dexAMETHasone 6 MG in SYRINGE 0 ML IV SCH (09:15)
[2020-12-03] MEDS: CLOPIDOGREL BISULFATE 75 MG TAB PO SCH (09:15)
[2020-12-03] MEDS: FLUTICASONE FUROATE 100MCG 14 PUFFS/INHALER INH SCH (09:16)
[2020-12-03] MEDS: DOCUSATE SODIUM 100 MG CAP PO SCH ×2 (09:16→20:00)
[2020-12-03] MEDS: LOSARTAN POTASSIUM 50 MG TAB PO SCH (09:17)
[2020-12-03] MEDS: GABAPENTIN 300 MG CAP PO SCH ×3 (09:17→19:59)
[2020-12-03] MEDS: METOPROLOL SUCC 25MG EXT REL TAB PO SCH ×2 (09:18→19:59)
[2020-12-03] MEDS: PANTOprazole 40 MG TAB PO SCH (09:18)
[2020-12-03] MEDS: SENNA 8.6 MG TAB PO SCH (09:19)
[2020-12-03] MEDS: TIMOLOL MALEATE 0.5% OP SOLN 5 ML BTL OPB SCH ×2 (09:20→20:04)
[2020-12-03] MEDS: FUROSEMIDE INJ 20 MG/2 ML VIAL IV SCH (10:03)
[2020-12-03] MEDS ORDERED: FUROSEMIDE INJ 20 MG/2 ML VIAL IV ONE (13:12)
--- NOTE | 2020-12-03 14:06 | Hospitalist Progress Note ---
Date of Service December 03, 2020 Assessment & Plan (1) Pneumonia due to COVID-19 virus: Plan: Overall doing okay. Remains on 10 L of nasal cannula. Remains stable and does not appear to be in any distress. Completed course of remdesivir. Continue with Decadron. Continue IV Lasix 20 mg daily to keep balance negative. Continue monitor ins and outs along with daily weights. Still requiring high flow oxygen to maintain saturation We will give additional dose of Lasix of 20 mg IV today We will consult PT/OT. (2) Coronary artery disease: Plan: History of renal artery stenosis status post stent in 2004, also history of carotid artery stent following which he had a small stroke affecting his right eye. In 2009 he had a cardiac catheterization showing nonocclusive coronary disease. Follows with [facility] cardiology. Overall patient is doing hemodynamically okay. Absence of any chest pain. Denies any cardiac symptoms (3) Elevated troponin: Plan: Likely secondary to demand ischemia. Continue to monitor. ECHO: Mild global hypokinesis, EF 45 to 50%, grade 1 diastolic dysfunction, mild mitral stenosis. (4) NSVT (nonsustained ventricular tachycardia): Plan: Home Toprol 12.5mg qHS was increased to BID this admission. Monitor and replace electrolytes as needed. No more episode of NSVT (5) Leg wound, left: Plan: Wound care consulted Continue wound care (6) CKD (chronic kidney disease), stage III: Plan: renal function is currently at baseline. Monitor BMP in am with intermittent furosemide. (7) History of CVA (cerebrovascular accident): Plan: Continue aspirin, statin (8) History of stent insertion of renal artery: (9) History of right common carotid artery stent placement: Plan: -Continue ASA, Plavix, statin (10) Hypertension: Plan: Controlled on current therapy. (11) Hypothyroidism: Plan: -Continue levothyroxine per home regimen. (12) DVT prophylaxis: Plan: -SQ Lovenox Full Code Dispo-uncertain at this time. Cont PCU. Admission and Anticipated Discharge Date Admission Date: November 23, 2020 Subjective 12/03/2020 The patient was seen and examined in telemetry unit and in the Covid room He has been sitting on a chair with minimal shortness of breath Has been requiring 13 L of oxygen to maintain saturation Has been communicating normally Review of Systems Review of Systems: All systems reviewed and are unremarkable except as noted below Respiratory: Moderate respiratory distress Musculoskeletal: Generally weak Physical Exam Physical Exam: Sitting on a chair without any acute distress Constitutional: well developed, well nourished, + ill appearing and + obese Eyes: PERRL, conjunctivae normal, anicteric sclerae ENMT: external ear and nose normal, oropharynx normal Neck: trachea midline, no thyromegaly Respiratory: + respiratory distress (Mild to moderate distress at rest); no labored breathing Auscultation: + diminished lung sounds and + crackles (At the bases); no wheezes Cardiovascular: Rate/Rhythm: regular rate and regular rhythm; not tachycardic Heart Sounds: normal S1 and normal S2; no murmur Extremities: + edema (Trace edema bilaterally) Gastrointestinal (Abdomen): Inspection/Auscultation: normal bowel sounds; abdomen not distended Percussion/Palpation: abdomen soft; abdomen nontender Musculoskeletal: No acute arthritis in any joint Neurologic: Alert, awake and oriented x3. Generally weak Lymphatic: no cervical or axillary lymphadenopathy Results & Data Results & Data ([facility]) Vital Signs (Past 12 Hours) Vital Signs Temp Pulse Pulse Resp BP Pulse Ox Pulse Ox 12/03/20 12:19 84 27 H 88 L 12/03/20 12:04 36.3 C L 79 35 H 136/61 90 12/03/20 10:40 93 12/03/20 09:00 76 12/03/20 08:04 29 H 93 12/03/20 07:50 36.4 C L 76 35 H 157/76 H 96 12/03/20 03:26 36.4 C L 77 16 145/75 H 89 L Medications Administered Current Inpatient Medications Acetaminophen (Acetaminophen 325 Mg Tab) 650 mg PO Q4H PRN PRN Reason: Pain or Fever Stop: 12/23/20 17:58 Last Admin: 11/24/20 00:04 Dose: 650 mg Documented by: Amlodipine Besylate (Amlodipine Besylate 5 Mg Tab) 5 mg PO HS [place] Stop: 12/23/20 20:59 Last Admin: 12/02/20 21:43 Dose: 5 mg Documented by: Amlodipine Besylate (Amlodipine Besylate 5 Mg Tab) 5 mg PO HS PRN PRN Reason: systolic 160 or greater Stop: 12/23/20 18:39 Aspirin (Aspirin 81 Mg Ectab) 81 mg PO HS [facility] Stop: 12/24/20 20:59 Last Admin: 12/02/20 21:42 Dose: 81 mg Documented by: Clopidogrel Bisulfate (Clopidogrel Bisulfate 75 Mg Tab) 75 mg PO Q2D@0900 [facility] Stop: 12/25/20 08:59 Last Admin: 12/03/20 09:15 Dose: 75 mg Documented by: Docusate Sodium (Docusate Sodium 100 Mg Cap) 100 mg PO BID [place] Stop: 01/01/21 12:14 Last Admin: 12/03/20 09:16 Dose: 100 mg Documented by: Enoxaparin Sodium (Enoxaparin Inj 40 Mg/0.4 Ml Syr) 40 mg SQ Q24H [place] Stop: 12/23/20 18:59 Last Admin: 12/02/20 19:28 Dose: 40 mg Documented by: Finasteride (Finasteride 5 Mg Tab) 5 mg PO [facility]; Protocol Stop: 12/23/20 20:59 Last Admin: 12/02/20 21:41 Dose: 5 mg Documented by: Fluticasone Furoate (Fluticasone Furoate 100mcg 14 Puffs/Inhaler) 1 puffs INH QAM [place] Stop: 12/24/20 08:59 Last Admin: 12/03/20 09:16 Dose: 1 puffs Documented by: Furosemide (Furosemide Inj 10 Mg/Ml 2 Ml Vial) 20 mg IV QAM [place] Stop: 01/02/21 08:59 Last Admin: 12/03/20 10:03 Dose: 20 mg Documented by: Gabapentin (Gabapentin 300 Mg Cap) 300 mg PO TID [place] Stop: 12/23/20 20:59 Last Admin: 12/03/20 09:17 Dose: 300 mg Documented by: Dexamethasone 6 mg/ Syringe 1.5 mls @ 1 mls/min IV DAILY [place] Stop: 12/04/20 08:59 Last Admin: 12/03/20 09:15 Dose: 1 mls/min Documented by: Ipratropium [place] (Ipratropium [place] Neb Soln 0.02% 2.5 Ml Vial) 0.5 mg INH Q4H PRN PRN Reason: SOB OR WHEEZING Stop: 12/23/20 23:44 Ipratropium [place] (Ipratropium [place] Neb Soln 0.02% 2.5 Ml Vial) 0.5 mg INH Q4H PRN PRN Reason: SOB/WHEEZING Stop: 12/27/20 00:59 Latanoprost (Latanoprost 0.005% Op Soln 2.5 Ml Btl) 1 drops OPB HS [facility] Stop: 12/23/20 20:59 Last Admin: 12/02/20 21:30 Dose: 1 drops Documented by: Levalbuterol HCl (Levalbuterol 1.25mg/0.5ml Neb) 1.25 mg INH Q4H PRN PRN Reason: SOB OR WHEEZING Stop: 12/23/20 23:44 Last Admin: 11/29/20 01:03 Dose: 1.25 mg Documented by: Levalbuterol HCl (Levalbuterol 1.25mg/0.5ml Neb) 1.25 mg INH Q4H PRN PRN Reason: SOB/WHEEZING Stop: 12/27/20 00:59 Levothyroxine Sodium (Levothyroxine Sodium 150 Mcg Tablet) [facility] Stop: 12/24/20 06:29 Last Admin: 12/03/20 06:32 Dose: 150 mcg Documented by: Losartan Potassium (Losartan Potassium 50 Mg Tab) 50 mg PO DAILY [facility] Stop: 12/28/20 11:44 Last Admin: 12/03/20 09:17 Dose: 50 mg Documented by: Metoprolol Succinate (Metoprolol Succ 25mg Ext Rel Tab) 12.5 mg PO BID [facility] Stop: 12/25/20 16:29 Last Admin: 12/03/20 09:18 Dose: 12.5 mg Documented by: Oxymetazoline HCl (Oxymetazoline 0.05% 30 Ml Btl) 2 sprays NA BID PRN PRN Reason: epistaxis Stop: 01/01/21 20:44 Pantoprazole Sodium (Pantoprazole 40 Mg Tab) 40 mg PO DAILY [facility]; Protocol Stop: 12/24/20 08:59 Last Admin: 12/03/20 09:18 Dose: 40 mg Documented by: Polyethylene Glycol (Polyethylene (Miralax) 17 Gm Pack) 17 gm PO DAILY PRN PRN Reason: Constipation Stop: 01/01/21 12:10 Rosuvastatin Calcium (Rosuvastatin Calcium 10 Mg Tab) 10 mg PO HS [facility] Stop: 12/23/20 20:59 Last Admin: 12/02/20 21:40 Dose: 10 mg Documented by: Sennosides (Senna 8.6 Mg Tab) 17.2 mg PO QAM [place] Stop: 01/01/21 12:14 Last Admin: 12/03/20 09:19 Dose: 17.2 mg Documented by: Sodium Chloride (Sodium Chloride 0.65% Na Soln 45 Ml ([place])) 2 sprays NA TID PRN PRN Reason: Nasal Congestion Stop: 01/01/21 20:44 Last Admin: 12/03/20 06:32 Dose: 2 sprays Documented by: Terazosin HCl (Terazosin Hcl 1 Mg Cap) 2 mg PO HS [place] Stop: 12/23/20 20:59 Last Admin: 12/02/20 21:39 Dose: 2 mg Documented by: Timolol Maleate (Timolol Maleate 0.5% Op Soln 5 Ml Btl) 1 drops OPB BID [place] Stop: 12/24/20 20:59 Last Admin: 12/03/20 09:20 Dose: 1 drops Documented by:
[2020-12-03] MEDS: ENOXAPARIN INJ 40 MG/0.4 ML SYR SQ SCH (19:58)
[2020-12-03] MEDS: amLODIPine BESYLATE 5 MG TAB PO SCH (19:58)
[2020-12-03] MEDS: FINASTERIDE 5 MG TAB PO SCH (20:00)
[2020-12-03] MEDS: ROSUVASTATIN CALCIUM 10 MG TAB PO SCH (20:01)
[2020-12-03] MEDS: ASPIRIN 81 MG ECTAB PO SCH (20:01)
[2020-12-03] MEDS: TERAZOSIN HCL 1 MG CAP PO SCH (20:03)
[2020-12-03] MEDS: OXYMETAZOLINE 0.05% 30 ML BTL PRN (20:04)
[2020-12-03] MEDS: LATANOPROST 0.005% OP SOLN 2.5 ML BTL OPB SCH (23:38)
[2020-12-04] MEDS: LEVOTHYROXINE SODIUM 150 MCG TABLET PO SCH (06:03)
[2020-12-04 08:51] LABS: BUN Creatinine Ratio 26.5 (10-20); C Reactive Protein 3.35 mg/dl (0-0.29); Calcium 8.9 mg/dl (8.5-10.1); Creatinine Clr Calc Pharmacy 64.2 ml/min; Est GFR (African American) 73.1 ml/min; Est GFR (Non-African American) 63.1 ml/min; Magnesium 2.3 mg/dl (1.8-2.4); Potassium 4.5 mmol/L (3.5-5.1)
[2020-12-04] MEDS: PANTOprazole 40 MG TAB PO SCH (09:20)
[2020-12-04] MEDS: SENNA 8.6 MG TAB PO SCH (09:20)
[2020-12-04] MEDS: GABAPENTIN 300 MG CAP PO SCH ×3 (09:20→19:58)
[2020-12-04] MEDS: FLUTICASONE FUROATE 100MCG 14 PUFFS/INHALER INH SCH (09:20)
[2020-12-04] MEDS: DOCUSATE SODIUM 100 MG CAP PO SCH ×2 (09:20→19:57)
[2020-12-04] MEDS: LOSARTAN POTASSIUM 50 MG TAB PO SCH (09:20)
[2020-12-04] MEDS: METOPROLOL SUCC 25MG EXT REL TAB PO SCH ×2 (09:21→20:00)
[2020-12-04] MEDS: TIMOLOL MALEATE 0.5% OP SOLN 5 ML BTL OPB SCH ×2 (09:21→20:06)
[2020-12-04] MEDS: FUROSEMIDE INJ 20 MG/2 ML VIAL IV SCH (09:29)
--- NOTE | 2020-12-04 09:43 | XRay Report ---
XR chest 1V portable CLINICAL HISTORY: Covid Pneumonia COMPARISON STUDY: Chest CT November 23, 2020 FINDINGS: Lung volumes are normal. There is no pneumothorax or pleural effusion. There is mild cardio megaly. Extensive bilateral airspace opacities are noted. These have progressed since chest CT Octobe 2020. IMPRESSION: Progression of extensive bilateral airspace opacities consistent with viral pneumonia. ACT 112: Negative or not required by law. Electronically signed by: Iain Urbina M.D. 12/04/2020 9:41 AM
[2020-12-04] MEDS ORDERED: FUROSEMIDE INJ 20 MG/2 ML VIAL IV ONE (13:02)
--- NOTE | 2020-12-04 14:31 | Hospitalist Progress Note ---
Date of Service December 04, 2020 Assessment & Plan (1) Pneumonia due to COVID-19 virus: Plan: Overall doing okay. Remains on 10 L of nasal cannula. Remains stable and does not appear to be in any distress. Completed course of remdesivir. Continue with Decadron. Continue IV Lasix 20 mg daily to keep balance negative. Continue monitor ins and outs along with daily weights. Still requiring high flow oxygen to maintain saturation We will give additional dose of Lasix of 20 mg IV today Condition has been deteriorating with worsening infiltration and chest x-ray We will give additional dose of Lasix 20 mg today and continue with 40 mg IV daily We will continue current medications (2) Coronary artery disease: Plan: History of renal artery stenosis status post stent in 2004, also history of ca rotid artery stent following which he had a small stroke affecting his right eye. In 2009 he had a cardiac catheterization showing nonocclusive coronary disease. Follows with [facility] cardiology. Overall patient is doing hemodynamically okay. Absence of any chest pain. Denies any cardiac symptoms (3) Elevated troponin: Plan: Likely secondary to demand ischemia. Continue to monitor. ECHO: Mild global hypokinesis, EF 45 to 50%, grade 1 diastolic dysfunction, mild mitral stenosis. (4) NSVT (nonsustained ventricular tachycardia): Plan: Home Toprol 12.5mg qHS was increased to BID this admission. Monitor and replace electrolytes as needed. No more episode of NSVT (5) Leg wound, left: Plan: Wound care consulted Continue wound care (6) CKD (chronic kidney disease), stage III: Plan: renal function is currently at baseline. Monitor BMP in am with intermittent furosemide. Monitor PRP (7) History of CVA (cerebrovascular accident): Plan: Continue aspirin, statin (8) History of stent insertion of renal artery: (9) History of right common carotid artery stent placement: Plan: -Continue ASA, Plavix, statin (10) Hypertension: Plan: Controlled on current therapy. (11) Hypothyroidism: Plan: -Continue levothyroxine per home regimen. (12) DVT prophylaxis: Plan: -SQ Lovenox Full Code Dispo-uncertain at this time. Cont PCU. Admission and Anticipated Discharge Date Admission Date: November 23, 2020 Subjective 12/03/2020 The patient was seen and examined in telemetry unit and in the Covid room He has been sitting on a chair with minimal shortness of breath Has been requiring 13 L of oxygen to maintain saturation Has been communicating normally 12/04/2020 The patient was seen and examined in telemetry unit and in the Covid room He has been feeling much better still has cough and shortness of breath Has been requiring high flow oxygen to maintain saturation and the x-ray shows more infiltration bilaterally Review of Systems Review of Systems: All systems reviewed and are unremarkable except as noted below Respiratory: Moderate respiratory distress Musculoskeletal: Generally weak Physical Exam Physical Exam: Sitting on a chair moderate distress Constitutional: well developed, well nourished, + ill appearing and + obese Eyes: PERRL, conjunctivae normal, anicteric sclerae ENMT: external ear and nose normal, oropharynx normal Neck: trachea midline, no thyromegaly Respiratory: + respiratory distress (Mild to moderate distress at rest); no labored breathing Auscultation: + diminished lung sounds and + crackles (At the bases); no wheezes Cardiovascular: Rate/Rhythm: regular rate and regular rhythm; not tachycardic Heart Sounds: normal S1 and normal S2; no murmur Extremities: + edema (Trace edema bilaterally) Gastrointestinal (Abdomen): Inspection/Auscultation: normal bowel sounds; abdomen not distended Percussion/Palpation: abdomen soft; abdomen nontender Musculoskeletal: No acute arthritis in any joint Neurologic: Alert and awake. Generally very weak and lethargic Lymphatic: no cervical or axillary lymphadenopathy Results & Data Results & Data ([facility]) Vital Signs (Past 12 Hours) Vital Signs Temp Pulse Pulse Resp BP Pulse Ox Pulse Ox 12/04/20 13:03 90 12/04/20 11:17 36.5 C 84 18 123/61 93 12/04/20 08:00 81 12/04/20 07:45 36.4 C L 87 20 154/73 H 91 12/04/20 04:46 36.9 C 67 22 151/79 H 91 Pulse Ox 12/04/20 13:03 85 L 12/04/20 11:17 12/04/20 08:00 12/04/20 07:45 12/04/20 04:46 Laboratory Results BMP 12/04/20 07:18 Sodium 139 Potassium 4.5 Chloride 101 Carbon Dioxide 32 BUN 29 H Creatinine 1.10 Glucose 100 H Calcium 8.9 Medications Administered Current Inpatient Medications Acetaminophen (Acetaminophen 325 Mg Tab) 650 mg PO Q4H PRN PRN Reason: Pain or Fever Stop: 12/23/20 17:58 Last Admin: 11/24/20 00:04 Dose: 650 mg Documented by: Amlodipine Besylate (Amlodipine Besylate 5 Mg Tab) 5 mg PO HS [facility] Stop: 12/23/20 20:59 Last Admin: 12/03/20 19:58 Dose: 5 mg Documented by: Amlodipine Besylate (Amlodipine Besylate 5 Mg Tab) 5 mg PO HS PRN PRN Reason: systolic 160 or greater Stop: 12/23/20 18:39 Aspirin (Aspirin 81 Mg Ectab) 81 mg PO HS [facility] Stop: 12/24/20 20:59 Last Admin: 12/03/20 20:01 Dose: 81 mg Documented by: Clopidogrel Bisulfate (Clopidogrel Bisulfate 75 Mg Tab) 75 mg PO Q2D@0900 [facility] Stop: 12/25/20 08:59 Last Admin: 12/03/20 09:15 Dose: 75 mg Documented by: Docusate Sodium (Docusate Sodium 100 Mg Cap) 100 mg PO BID [facility] Stop: 01/01/21 12:14 Last Admin: 12/04/20 09:20 Dose: 100 mg Documented by: Enoxaparin Sodium (Enoxaparin Inj 40 Mg/0.4 Ml Syr) 40 mg SQ Q24H [facility] Stop: 12/23/20 18:59 Last Admin: 12/03/20 19:58 Dose: 40 mg Documented by: Finasteride (Finasteride 5 Mg Tab) 5 mg PO [facility]; Protocol Stop: 12/23/20 20:59 Last Admin: 12/03/20 20:00 Dose: 5 mg Documented by: Fluticasone Furoate (Fluticasone Furoate 100mcg 14 Puffs/Inhaler) 1 puffs INH QAM [facility] Stop: 12/24/20 08:59 Last Admin: 12/04/20 09:20 Dose: 1 puffs Documented by: Furosemide (Furosemide 40 Mg/4 Ml Vial) 40 mg IV QAM [facility] Stop: 01/04/21 08:59 Gabapentin (Gabapentin 300 Mg Cap) 300 mg PO TID [facility] Stop: 12/23/20 20:59 Last Admin: 12/04/20 13:35 Dose: 300 mg Documented by: Ipratropium [place] (Ipratropium [place] Neb Soln 0.02% 2.5 Ml Vial) 0.5 mg INH Q4H PRN PRN Reason: SOB OR WHEEZING Stop: 12/23/20 23:44 Ipratropium [place] (Ipratropium [place] Neb Soln 0.02% 2.5 Ml Vial) 0.5 mg INH Q4H PRN PRN Reason: SOB/WHEEZING Stop: 12/27/20 00:59 Latanoprost (Latanoprost 0.005% Op Soln 2.5 Ml Btl) 1 drops OPB HS [place] Stop: 12/23/20 20:59 Last Admin: 12/03/20 23:38 Dose: 1 drops Documented by: Levalbuterol HCl (Levalbuterol 1.25mg/0.5ml Neb) 1.25 mg INH Q4H PRN PRN Reason: SOB OR WHEEZING Stop: 12/23/20 23:44 Last Admin: 11/29/20 01:03 Dose: 1.25 mg Documented by: Levalbuterol HCl (Levalbuterol 1.25mg/0.5ml Neb) 1.25 mg INH Q4H PRN PRN Reason: SOB/WHEEZING Stop: 12/27/20 00:59 Levothyroxine Sodium (Levothyroxine Sodium 150 Mcg Tablet) 150 mcg PO DAILYBB [facility] Stop: 12/24/20 06:29 Last Admin: 12/04/20 06:03 Dose: 150 mcg Documented by: Losartan Potassium (Losartan Potassium 50 Mg Tab) 50 mg PO DAILY [facility] Stop: 12/28/20 11:44 Last Admin: 12/04/20 09:20 Dose: 50 mg Documented by: Metoprolol Succinate (Metoprolol Succ 25mg Ext Rel Tab) 12.5 mg PO BID [facility] Stop: 12/25/20 16:29 Last Admin: 12/04/20 09:21 Dose: 12.5 mg Documented by: Oxymetazoline HCl (Oxymetazoline 0.05% 30 Ml Btl) 2 sprays NA BID PRN PRN Reason: epistaxis Stop: 01/01/21 20:44 Last Admin: 12/03/20 20:04 Dose: 2 sprays Documented by: Pantoprazole Sodium (Pantoprazole 40 Mg Tab) 40 mg PO DAILY [facility]; Protocol Stop: 12/24/20 08:59 Last Admin: 12/04/20 09:20 Dose: 40 mg Documented by: Polyethylene Glycol (Polyethylene (Miralax) 17 Gm Pack) 17 gm PO DAILY PRN PRN Reason: Constipation Stop: 01/01/21 12:10 Rosuvastatin Calcium (Rosuvastatin Calcium 10 Mg Tab) 10 mg PO HS [facility] Stop: 12/23/20 20:59 Last Admin: 12/03/20 20:01 Dose: 10 mg Documented by: Sennosides (Senna 8.6 Mg Tab) 17.2 mg PO QAM [facility] Stop: 01/01/21 12:14 Last Admin: 12/04/20 09:20 Dose: 17.2 mg Documented by: Sodium Chloride (Sodium Chloride 0.65% Na Soln 45 Ml ([place])) 2 sprays NA TID PRN PRN Reason: Nasal Congestion Stop: 01/01/21 20:44 Last Admin: 12/03/20 06:32 Dose: 2 sprays Documented by: Terazosin HCl (Terazosin Hcl 1 Mg Cap) 2 mg PO HS [facility] Stop: 12/23/20 20:59 Last Admin: 12/03/20 20:03 Dose: 2 mg Documented by: Timolol Maleate (Timolol Maleate 0.5% Op Soln 5 Ml Btl) 1 drops OPB BID [facility] Stop: 12/24/20 20:59 Last Admin: 12/04/20 09:21 Dose: 1 drops Documented by:
[2020-12-04] MEDS: ENOXAPARIN INJ 40 MG/0.4 ML SYR SQ SCH (18:09)
[2020-12-04] MEDS: ROSUVASTATIN CALCIUM 10 MG TAB PO SCH (19:59)
[2020-12-04] MEDS: ASPIRIN 81 MG ECTAB PO SCH (19:59)
[2020-12-04] MEDS: FINASTERIDE 5 MG TAB PO SCH (19:59)
[2020-12-04] MEDS: amLODIPine BESYLATE 5 MG TAB PO SCH (20:01)
[2020-12-04] MEDS: OXYMETAZOLINE 0.05% 30 ML BTL PRN (20:03)
[2020-12-04] MEDS: TERAZOSIN HCL 1 MG CAP PO SCH (20:03)
[2020-12-04] MEDS: LATANOPROST 0.005% OP SOLN 2.5 ML BTL OPB SCH (20:05)
[2020-12-05] MEDS: LEVOTHYROXINE SODIUM 150 MCG TABLET PO SCH (06:27)
[2020-12-05 06:35] LABS: BUN Creatinine Ratio 25.8 (10-20); Calcium 8.4 mg/dl (8.5-10.1); Creatinine Clr Calc Pharmacy 58.6 ml/min; Est GFR (African American) 62.6 ml/min
[2020-12-05 07:38] LABS: Basophils # (auto) 0.02 K/uL (0-0.2); Basophils % (auto) 0.2 %; Eosinophils # (auto) 0.35 K/uL (0-0.5); Eosinophils % (auto) 2.7 %; Hematocrit (blood only) 45.3 % (42-52); Hemoglobin 15.3 g/dL (14.0-18.0); Immature Granulocytes # (auto) 0.15 K/uL (0.00-0.02); Immature Granulocytes % (auto) 1.2 %; Lymphocytes # (auto) 1.06 K/uL (1.2-3.4); Lymphocytes % (auto) 8.2 %; Mean Corpuscular Hemoglobin 31.5 pg (25-34); Mean Corpuscular Volume 93.2 fL (80-100); Mean Platelet Volume 8.8 fL (7.4-10.4); Monocytes # (auto) 1.06 K/uL (0.11-0.59); Monocytes % (auto) 8.2 %; Neutrophils # (auto) 10.26 K/uL (1.4-6.5); Neutrophils % (auto) 79.5 %; Platelet Count 358 K/uL (130-400); RDW Coefficient of Variation 13.7 % (11.5-14.5); RDW Standard Deviation 46.6 fL (36.4-46.3); Red Blood Count 4.86 M/uL (4.7-6.1)
[2020-12-05 07:51] LABS: Mean Corpuscular Hgb Conc 33.8 g/dL (32-36)
[2020-12-05] MEDS: CLOPIDOGREL BISULFATE 75 MG TAB PO SCH (08:43)
[2020-12-05] MEDS: FLUTICASONE FUROATE 100MCG 14 PUFFS/INHALER INH SCH (08:44)
[2020-12-05] MEDS: DOCUSATE SODIUM 100 MG CAP PO SCH ×2 (08:44→19:45)
[2020-12-05] MEDS: GABAPENTIN 300 MG CAP PO SCH ×3 (08:45→19:46)
[2020-12-05] MEDS: FUROSEMIDE 40 MG/4 ML VIAL IV SCH (08:45)
[2020-12-05] MEDS: METOPROLOL SUCC 25MG EXT REL TAB PO SCH ×2 (08:46→19:47)
[2020-12-05] MEDS: LOSARTAN POTASSIUM 50 MG TAB PO SCH (08:46)
[2020-12-05] MEDS: SENNA 8.6 MG TAB PO SCH (08:47)
[2020-12-05] MEDS: TIMOLOL MALEATE 0.5% OP SOLN 5 ML BTL OPB SCH ×2 (08:47→19:51)
[2020-12-05] MEDS: PANTOprazole 40 MG TAB PO SCH (08:47)
--- NOTE | 2020-12-05 15:03 | Hospitalist Progress Note ---
Date of Service December 05, 2020 Assessment & Plan (1) Pneumonia due to COVID-19 virus: Plan: Overall doing okay. Remains on 10 L of nasal cannula. Remains stable and does not appear to be in any distress. Completed course of remdesivir. Continue with Decadron. Continue IV Lasix 20 mg daily to keep balance negative. Continue monitor ins and outs along with daily weights. Still requiring high flow oxygen to maintain saturation We will give additional dose of Lasix of 20 mg IV today Condition has been deteriorating with worsening infiltration and chest x-ray We will give additional dose of Lasix 20 mg today and continue with 40 mg IV daily Clinically better and has been requiring 6 L of oxygen to maintain saturation (2) Coronary artery disease: Plan: History of renal artery stenosis status post stent in 2004, also history of carotid artery stent following which he had a small stroke affecting his right eye. In 2009 he had a cardiac catheterization showing nonocclusive coronary disease. Follows with [facility] cardiology. Overall patient is doing hemodynamically okay. Absence of any chest pain. Denies any cardiac symptoms (3) Elevated troponin: Plan: Likely secondary to demand ischemia. Continue to monitor. ECHO: Mild global hypokinesis, EF 45 to 50%, grade 1 diastolic dysfunction, mild mitral stenosis. (4) NSVT (nonsustained ventricular tachycardia): Plan: Home Toprol 12.5mg qHS was increased to BID this admission. Monitor and replace electrolytes as needed. No more episode of NSVT Denies any more cardiac symptoms (5) Leg wound, left: Plan: Wound care consulted Continue wound care (6) CKD (chronic kidney disease), stage III: Plan: renal function is currently at baseline. Monitor BMP in am with intermittent furosemide. Monitor PRP-creatinine remains stable (7) History of CVA (cerebrovascular accident): Plan: Continue aspirin, statin (8) History of stent insertion of renal artery: (9) History of right common carotid artery stent placement: Plan: -Continue ASA, Plavix, statin (10) Hypertension: Plan: Controlled on current therapy. (11) Hypothyroidism: Plan: -Continue levothyroxine per home regimen. (12) DVT prophylaxis: Plan: -SQ Lovenox Full Code Dispo-uncertain at this time. Cont PCU. Discussed with the daughter Admission and Anticipated Discharge Date Admission Date: November 23, 2020 Subjective 12/03/2020 The patient was seen and examined in telemetry unit and in the Covid room He has been sitting on a chair with minimal shortness of breath Has been requiring 13 L of oxygen to maintain saturation Has been communicating normally 12/04/2020 The patient was seen and examined in telemetry unit and in the Covid room He has been feeling much better still has cough and shortness of breath Has been requiring high flow oxygen to maintain saturation and the x-ray shows more infiltration bilaterally 12/05/2020 The patient was seen and examined in telemetry unit and in the Covid room He has been feeling much better today Requiring about 6 L of oxygen to maintain saturation Still gets very short of breath and desaturates with any activities Review of Systems Review of Systems: All systems reviewed and are unremarkable except as noted below Respiratory: Moderate respiratory distress Musculoskeletal: Generally weak Physical Exam Physical Exam: Sitting on a chair moderate distress Constitutional: well developed, well nourished, + ill appearing and + obese Eyes: PERRL, conjunctivae normal, anicteric sclerae ENMT: external ear and nose normal, oropharynx normal Neck: trachea midline, no thyromegaly Respiratory: + respiratory distress (Mild to moderate distress at rest); no labored breathing Auscultation: + diminished lung sounds and + crackles (At the bases); no wheezes Cardiovascular: Rate/Rhythm: regular rate and regular rhythm; not tachycardic Heart Sounds: normal S1 and normal S2; no murmur Extremities: + edema (Trace edema bilaterally) Gastrointestinal (Abdomen): Inspection/Auscultation: normal bowel sounds; abdomen not distended Percussion/Palpation: abdomen soft; abdomen nontender Musculoskeletal: No acute arthritis in any joint Neurologic: Alert, awake and oriented x3, generally very weak and lethargic Lymphatic: no cervical or axillary lymphadenopathy Results & Data Results & Data ([facility]) Vital Signs (Past 12 Hours) Vital Signs Temp Pulse Pulse Resp BP Pulse Ox 12/05/20 11:25 36.8 C 87 18 101/59 L 96 12/05/20 08:00 70 12/05/20 07:00 36.8 C 85 20 136/75 91 Laboratory Results Short CBC 12/05/20 12/05/20 Range/Units 05:38 07:10 WBC Cancelled 12.90 H Hgb Cancelled 15.3 Hct Cancelled 45.3 Plt Count Cancelled 358 BMP 10/29/21 05:38 Sodium 136 Potassium 5.0 Chloride 100 Carbon Dioxide 32 BUN 32 H Creatinine 1.25 Glucose 99 Calcium 8.4 L Medications Administered Current Inpatient Medications Acetaminophen (Acetaminophen 325 Mg Tab) 650 mg PO Q4H PRN PRN Reason: Pain or Fever Stop: 12/23/20 17:58 Last Admin: 11/24/20 00:04 Dose: 650 mg Documented by: Amlodipine Besylate (Amlodipine Besylate 5 Mg Tab) 5 mg PO [facility] Stop: 12/23/20 20:59 Last Admin: 12/04/20 20:01 Dose: 5 mg Documented by: Amlodipine Besylate (Amlodipine Besylate 5 Mg Tab) 5 mg PO HS PRN PRN Reason: systolic 160 or greater Stop: 12/23/20 18:39 Aspirin (Aspirin 81 Mg Ectab) 81 mg PO [facility] Stop: 12/24/20 20:59 Last Admin: 12/04/20 19:59 Dose: 81 mg Documented by: Clopidogrel Bisulfate (Clopidogrel Bisulfate 75 Mg Tab) 75 mg PO Q2D@0900 [facility] Stop: 12/25/20 08:59 Last Admin: 12/05/20 08:43 Dose: 75 mg Documented by: Docusate Sodium (Docusate Sodium 100 Mg Cap) 100 mg PO BID [facility] Stop: 01/01/21 12:14 Last Admin: 12/05/20 08:44 Dose: 100 mg Documented by: Enoxaparin Sodium (Enoxaparin Inj 40 Mg/0.4 Ml Syr) 40 mg SQ Q24H [facility] Stop: 12/23/20 18:59 Last Admin: 12/04/20 18:09 Dose: 40 mg Documented by: Finasteride (Finasteride 5 Mg Tab) 5 mg PO [facility]; Protocol Stop: 12/23/20 20:59 Last Admin: 12/04/20 19:59 Dose: 5 mg Documented by: Fluticasone Furoate (Fluticasone Furoate 100mcg 14 Puffs/Inhaler) [facility] Stop: 12/24/20 08:59 Last Admin: 12/05/20 08:44 Dose: 1 puffs Documented by: Furosemide (Furosemide 40 Mg/4 Ml Vial) [facility] Stop: 01/04/21 08:59 Last Admin: 12/05/20 08:45 Dose: 40 mg Documented by: Gabapentin (Gabapentin 300 Mg Cap) 300 mg PO TID [facility] Stop: 12/23/20 20:59 Last Admin: 12/05/20 14:10 Dose: 300 mg Documented by: Ipratropium [place] (Ipratropium [place] Neb Soln 0.02% 2.5 Ml Vial) 0.5 mg INH Q4H PRN PRN Reason: SOB OR WHEEZING Stop: 12/23/20 23:44 Ipratropium [place] (Ipratropium [place] Neb Soln 0.02% 2.5 Ml Vial) 0.5 mg INH Q4H PRN PRN Reason: SOB/WHEEZING Stop: 12/27/20 00:59 Latanoprost (Latanoprost 0.005% Op Soln 2.5 Ml Btl) 1 drops OPB HS [facility] Stop: 12/23/20 20:59 Last Admin: 12/04/20 20:05 Dose: 1 drops Documented by: Levalbuterol HCl (Levalbuterol 1.25mg/0.5ml Neb) 1.25 mg INH Q4H PRN PRN Reason: SOB OR WHEEZING Stop: 12/23/20 23:44 Last Admin: 11/29/20 01:03 Dose: 1.25 mg Documented by: Levalbuterol HCl (Levalbuterol 1.25mg/0.5ml Neb) 1.25 mg INH Q4H PRN PRN Reason: SOB/WHEEZING Stop: 12/27/20 00:59 Levothyroxine Sodium (Levothyroxine Sodium 150 Mcg Tablet) 150 mcg PO DAILYBB [facility] Stop: 12/24/20 06:29 Last Admin: 12/04/20 06:03 Dose: 150 mcg Documented by: Losartan Potassium (Losartan Potassium 50 Mg Tab) 50 mg PO DAILY [facility] Stop: 12/28/20 11:44 Last Admin: 12/05/20 08:46 Dose: 50 mg Documented by: Metoprolol Succinate (Metoprolol Succ 25mg Ext Rel Tab) 12.5 mg PO BID [facility] Stop: 12/25/20 16:29 Last Admin: 12/05/20 08:46 Dose: 12.5 mg Documented by: Oxymetazoline HCl (Oxymetazoline 0.05% 30 Ml Btl) 2 sprays NA BID PRN PRN Reason: epistaxis Stop: 01/01/21 20:44 Last Admin: 12/04/20 20:03 Dose: 2 sprays Documented by: Pantoprazole Sodium (Pantoprazole 40 Mg Tab) 40 mg PO DAILY [facility]; Protocol Stop: 12/24/20 08:59 Last Admin: 12/05/20 08:47 Dose: 40 mg Documented by: Polyethylene Glycol (Polyethylene (Miralax) 17 Gm Pack) 17 gm PO DAILY PRN PRN Reason: Constipation Stop: 01/01/21 12:10 Rosuvastatin Calcium (Rosuvastatin Calcium 10 Mg Tab) 10 mg PO HS [facility] Stop: 12/23/20 20:59 Last Admin: 12/04/20 19:59 Dose: 10 mg Documented by: Sennosides (Senna 8.6 Mg Tab) 17.2 mg PO QAM [facility] Stop: 01/01/21 12:14 Last Admin: 12/05/20 08:47 Dose: 17.2 mg Documented by: Sodium Chloride (Sodium Chloride 0.65% Na Soln 45 Ml ([place])) 2 sprays NA TID PRN PRN Reason: Nasal Congestion Stop: 01/01/21 20:44 Last Admin: 12/03/20 06:32 Dose: 2 sprays Documented by: Terazosin HCl (Terazosin Hcl 1 Mg Cap) 2 mg PO HS [facility] Stop: 12/23/20 20:59 Last Admin: 12/04/20 20:03 Dose: 2 mg Documented by: Timolol Maleate (Timolol Maleate 0.5% Op Soln 5 Ml Btl) 1 drops OPB BID [facility] Stop: 12/24/20 20:59 Last Admin: 12/05/20 08:47 Dose: 1 drops Documented by:
[2020-12-05] MEDS: amLODIPine BESYLATE 5 MG TAB PO SCH (19:44)
[2020-12-05] MEDS: ENOXAPARIN INJ 40 MG/0.4 ML SYR SQ SCH (19:44)
[2020-12-05] MEDS: ASPIRIN 81 MG ECTAB PO SCH (19:45)
[2020-12-05] MEDS: FINASTERIDE 5 MG TAB PO SCH (19:47)
[2020-12-05] MEDS: ROSUVASTATIN CALCIUM 10 MG TAB PO SCH (19:51)
[2020-12-05] MEDS: LATANOPROST 0.005% OP SOLN 2.5 ML BTL OPB SCH (19:52)
[2020-12-05] MEDS: TERAZOSIN HCL 1 MG CAP PO SCH (19:52)
[2020-12-06] MEDS: LEVOTHYROXINE SODIUM 150 MCG TABLET PO SCH (06:02)
[2020-12-06 07:06] LABS: Calcium 8.4 mg/dl (8.5-10.1); Est GFR (African American) 73.9 ml/min; Est GFR (Non-African American) 63.8 ml/min; Magnesium 2.3 mg/dl (1.8-2.4); Potassium 3.9 mmol/L (3.5-5.1)
[2020-12-06] MEDS: DOCUSATE SODIUM 100 MG CAP PO SCH ×2 (08:12→20:54)
[2020-12-06] MEDS: FLUTICASONE FUROATE 100MCG 14 PUFFS/INHALER INH SCH (08:12)
[2020-12-06] MEDS: GABAPENTIN 300 MG CAP PO SCH ×3 (08:14→20:55)
[2020-12-06] MEDS: FUROSEMIDE 40 MG/4 ML VIAL IV SCH (08:14)
[2020-12-06] MEDS: LOSARTAN POTASSIUM 50 MG TAB PO SCH (08:15)
[2020-12-06] MEDS: SENNA 8.6 MG TAB PO SCH (08:15)
[2020-12-06] MEDS: PANTOprazole 40 MG TAB PO SCH (08:15)
[2020-12-06] MEDS: METOPROLOL SUCC 25MG EXT REL TAB PO SCH ×2 (08:15→20:55)
[2020-12-06] MEDS: TIMOLOL MALEATE 0.5% OP SOLN 5 ML BTL OPB SCH ×2 (08:16→20:56)
[2020-12-06] MEDS ORDERED: FUROSEMIDE 40 MG/4 ML VIAL IV ONE (13:56)
--- NOTE | 2020-12-06 13:56 | Hospitalist Progress Note ---
Date of Service December 06, 2020 Assessment & Plan (1) Pneumonia due to COVID-19 virus: Plan: Overall doing okay. Remains on 10 L of nasal cannula. Remains stable and does not appear to be in any distress. Completed course of remdesivir. Continue with Decadron. Continue IV Lasix 20 mg daily to keep balance negative. Continue monitor ins and outs along with daily weights. Still requiring high flow oxygen to maintain saturation We will give additional dose of Lasix of 20 mg IV today Condition has been deteriorating with worsening infiltration and chest x-ray We will give additional dose of Lasix 20 mg today and continue with 40 mg IV daily Clinically better and has been requiring 6 L of oxygen to maintain saturation Clinically much better and has been complicating normally but getting very short of breath with minimal exertion We will continue current management and give another dose of Lasix today (2) Coronary artery disease: Plan: History of renal artery stenosis status post stent in 2004, also history of carotid artery stent following which he had a small stroke affecting his right eye. In 2009 he had a cardiac catheterization showing nonocclusive coronary disease. Follows with [facility] cardiology. Overall patient is doing hemodynamically okay. Absence of any chest pain. Denies any cardiac symptoms (3) Elevated troponin: Plan: Likely secondary to demand ischemia. Continue to monitor. ECHO: Mild global hypokinesis, EF 45 to 50%, grade 1 diastolic dysfunction, mild mitral stenosis. (4) NSVT (nonsustained ventricular tachycardia): Plan: Home Toprol 12.5mg qHS was increased to BID this admission. Monitor and replace electrolytes as needed. No more episode of NSVT Denies any more cardiac symptoms (5) Leg wound, left: Plan: Wound care consulted Continue wound care (6) CKD (chronic kidney disease), stage III: Plan: renal function is currently at baseline. Monitor BMP in am with intermittent furosemide. Monitor PRP-creatinine remains stable (7) History of CVA (cerebrovascular accident): Plan: Continue aspirin, statin (8) History of stent insertion of renal artery: (9) History of right common carotid artery stent placement: Plan: -Continue ASA, Plavix, statin (10) Hypertension: Plan: Controlled on current therapy. (11) Hypothyroidism: Plan: -Continue levothyroxine per home regimen. (12) DVT prophylaxis: Plan: -SQ Lovenox Full Code Dispo-uncertain at this time. Cont PCU. Discussed with the daughter Admission and Anticipated Discharge Date Admission Date: November 23, 2020 Subjective 12/03/2020 The patient was seen and examined in telemetry unit and in the Covid room He has been sitting on a chair with minimal shortness of breath Has been requiring 13 L of oxygen to maintain saturation Has been communicating normally 12/04/2020 The patient was seen and examined in telemetry unit and in the Covid room He has been feeling much better still has cough and shortness of breath Has been requiring high flow oxygen to maintain saturation and the x-ray shows more infiltration bilaterally 12/05/2020 The patient was seen and examined in telemetry unit and in the Covid room He has been feeling much better today Requiring about 6 L of oxygen to maintain saturation Still gets very short of breath and desaturates with any activities 12/06/2020 The patient was seen and examined in telemetry unit and in the Covid room He feels much better today and has been requiring less than 6 L of oxygen to maintain saturation Still getting short of breath and desaturation with any activity Review of Systems Review of Systems: All systems reviewed and are unremarkable except as noted below Respiratory: Moderate respiratory distress Musculoskeletal: Generally weak Physical Exam Physical Exam: Sitting on a chair moderate distress Constitutional: well developed, well nourished, + ill appearing and + obese Eyes: PERRL, conjunctivae normal, anicteric sclerae ENMT: external ear and nose normal, oropharynx normal Neck: trachea midline, no thyromegaly Respiratory: + respiratory distress (Mild to moderate distress at rest); no labored breathing Auscultation: + diminished lung sounds and + crackles (At the bases); no wheezes Cardiovascular: Rate/Rhythm: regular rate and regular rhythm; not tachycardic Heart Sounds: normal S1 and normal S2; no murmur Extremities: + edema (Trace edema bilaterally) Gastrointestinal (Abdomen): Inspection/Auscultation: normal bowel sounds; abdomen not distended Percussion/Palpation: abdomen soft; abdomen nontender Musculoskeletal: No acute arthritis in any joint Neurologic: Alert, awake and oriented x3, generally very weak and lethargic Lymphatic: no cervical or axillary lymphadenopathy Results & Data Results & Data ([facility]) Vital Signs (Past 12 Hours) Vital Signs Temp Pulse Pulse Resp BP BP Pulse Ox 12/06/20 11:58 36.4 C L 82 28 H 105/51 L 93 12/06/20 08:12 36.6 C 77 20 140/66 93 12/06/20 08:00 72 12/06/20 03:18 36.4 C L 68 18 124/55 L 92 Laboratory Results BMP 12/06/20 05:34 Sodium 137 Potassium 3.9 D Chloride 100 Carbon Dioxide 33 H BUN 32 H Creatinine 1.09 Glucose 113 H Calcium 8.4 L Medications Administered Current Inpatient Medications Acetaminophen (Acetaminophen 325 Mg Tab) 650 mg PO Q4H PRN PRN Reason: Pain or Fever Stop: 12/23/20 17:58 Last Admin: 11/24/20 00:04 Dose: 650 mg Documented by: Amlodipine Besylate (Amlodipine Besylate 5 Mg Tab) 5 mg PO HS [facility] Stop: 12/23/20 20:59 Last Admin: 12/05/20 19:44 Dose: 5 mg Documented by: Amlodipine Besylate (Amlodipine Besylate 5 Mg Tab) 5 mg PO HS PRN PRN Reason: systolic 160 or greater Stop: 12/23/20 18:39 Aspirin (Aspirin 81 Mg Ectab) 81 mg PO HS [facility] Stop: 12/24/20 20:59 Last Admin: 12/05/20 19:45 Dose: 81 mg Documented by: Clopidogrel Bisulfate (Clopidogrel Bisulfate 75 Mg Tab) 75 mg PO Q2D@0900 [facility] Stop: 12/25/20 08:59 Last Admin: 12/05/20 08:43 Dose: 75 mg Documented by: Docusate Sodium (Docusate Sodium 100 Mg Cap) 100 mg PO BID [facility] Stop: 01/01/21 12:14 Last Admin: 12/06/20 08:12 Dose: 100 mg Documented by: Enoxaparin Sodium (Enoxaparin Inj 40 Mg/0.4 Ml Syr) 40 mg SQ Q24H [facility] Stop: 12/23/20 18:59 Last Admin: 12/05/20 19:44 Dose: 40 mg Documented by: Finasteride (Finasteride 5 Mg Tab) 5 mg PO HS [facility]; Protocol Stop: 12/23/20 20:59 Last Admin: 12/05/20 19:47 Dose: 5 mg Documented by: Fluticasone Furoate (Fluticasone Furoate 100mcg 14 Puffs/Inhaler) 1 puffs INH QAM [facility] Stop: 12/24/20 08:59 Last Admin: 12/06/20 08:12 Dose: 1 puffs Documented by: Furosemide (Furosemide 40 Mg/4 Ml Vial) 40 mg IV QAM [facility] Stop: 01/04/21 08:59 Last Admin: 12/06/20 08:14 Dose: 40 mg Documented by: Gabapentin (Gabapentin 300 Mg Cap) 300 mg PO TID [facility] Stop: 12/23/20 20:59 Last Admin: 12/06/20 08:14 Dose: 300 mg Documented by: Ipratropium [place] (Ipratropium [place] Neb Soln 0.02% 2.5 Ml Vial) 0.5 mg INH Q4H PRN PRN Reason: SOB OR WHEEZING Stop: 12/23/20 23:44 Ipratropium [place] (Ipratropium [place] Neb Soln 0.02% 2.5 Ml Vial) 0.5 mg INH Q4H PRN PRN Reason: SOB/WHEEZING Stop: 12/27/20 00:59 Latanoprost (Latanoprost 0.005% Op Soln 2.5 Ml Btl) 1 drops OPB HS [facility] Stop: 12/23/20 20:59 Last Admin: 12/05/20 19:52 Dose: 1 drops Documented by: Levalbuterol HCl (Levalbuterol 1.25mg/0.5ml Neb) 1.25 mg INH Q4H PRN PRN Reason: SOB OR WHEEZING Stop: 12/23/20 23:44 Last Admin: 11/29/20 01:03 Dose: 1.25 mg Documented by: Levalbuterol HCl (Levalbuterol 1.25mg/0.5ml Neb) 1.25 mg INH Q4H PRN PRN Reason: SOB/WHEEZING Stop: 12/27/20 00:59 Levothyroxine Sodium (Levothyroxine Sodium 150 Mcg Tablet) 150 mcg PO DAILYBB [facility] Stop: 12/24/20 06:29 Last Admin: 12/06/20 06:02 Dose: 150 mcg Documented by: Losartan Potassium (Losartan Potassium 50 Mg Tab) 50 mg PO DAILY [facility] Stop: 12/28/20 11:44 Last Admin: 12/06/20 08:15 Dose: 50 mg Documented by: Metoprolol Succinate (Metoprolol Succ 25mg Ext Rel Tab) 12.5 mg PO BID [facility] Stop: 12/25/20 16:29 Last Admin: 12/06/20 08:15 Dose: 12.5 mg Documented by: Oxymetazoline HCl (Oxymetazoline 0.05% 30 Ml Btl) 2 sprays NA BID PRN PRN Reason: epistaxis Stop: 01/01/21 20:44 Last Admin: 12/04/20 20:03 Dose: 2 sprays Documented by: Pantoprazole Sodium (Pantoprazole 40 Mg Tab) 40 mg PO DAILY [facility]; Protocol Stop: 12/24/20 08:59 Last Admin: 12/06/20 08:15 Dose: 40 mg Documented by: Polyethylene Glycol (Polyethylene (Miralax) 17 Gm Pack) 17 gm PO DAILY PRN PRN Reason: Constipation Stop: 01/01/21 12:10 Rosuvastatin Calcium (Rosuvastatin Calcium 10 Mg Tab) 10 mg PO HS [facility] Stop: 12/23/20 20:59 Last Admin: 12/05/20 19:51 Dose: 10 mg Documented by: Sennosides (Senna 8.6 Mg Tab) 17.2 mg PO QAM [facility] Stop: 01/01/21 12:14 Last Admin: 12/06/20 08:15 Dose: 17.2 mg Documented by: Sodium Chloride (Sodium Chloride 0.65% Na Soln 45 Ml ([place])) 2 sprays NA TID PRN PRN Reason: Nasal Congestion Stop: 01/01/21 20:44 Last Admin: 12/03/20 06:32 Dose: 2 sprays Documented by: Terazosin HCl (Terazosin Hcl 1 Mg Cap) 2 mg PO HS [facility] Stop: 12/23/20 20:59 Last Admin: 12/05/20 19:52 Dose: 2 mg Documented by: Timolol Maleate (Timolol Maleate 0.5% Op Soln 5 Ml Btl) 1 drops OPB BID [facility] Stop: 12/24/20 20:59 Last Admin: 12/06/20 08:16 Dose: 1 drops Documented by:
[2020-12-06] MEDS: amLODIPine BESYLATE 5 MG TAB PO SCH (20:53)
[2020-12-06] MEDS: ENOXAPARIN INJ 40 MG/0.4 ML SYR SQ SCH (20:53)
[2020-12-06] MEDS: ASPIRIN 81 MG ECTAB PO SCH (20:54)
[2020-12-06] MEDS: LATANOPROST 0.005% OP SOLN 2.5 ML BTL OPB SCH (20:54)
[2020-12-06] MEDS: FINASTERIDE 5 MG TAB PO SCH (20:54)
[2020-12-06] MEDS: ROSUVASTATIN CALCIUM 10 MG TAB PO SCH (20:55)
[2020-12-06] MEDS: TERAZOSIN HCL 1 MG CAP PO SCH (20:55)
[2020-12-07] MEDS: LEVOTHYROXINE SODIUM 150 MCG TABLET PO SCH (06:12)
[2020-12-07] MEDS: DOCUSATE SODIUM 100 MG CAP PO SCH ×2 (08:13→20:02)
[2020-12-07] MEDS: CLOPIDOGREL BISULFATE 75 MG TAB PO SCH (08:13)
[2020-12-07] MEDS: FLUTICASONE FUROATE 100MCG 14 PUFFS/INHALER INH SCH (08:13)
[2020-12-07] MEDS: FUROSEMIDE 40 MG/4 ML VIAL IV SCH (08:14)
[2020-12-07] MEDS: GABAPENTIN 300 MG CAP PO SCH ×3 (08:14→20:03)
[2020-12-07] MEDS: LOSARTAN POTASSIUM 50 MG TAB PO SCH (08:14)
[2020-12-07] MEDS: PANTOprazole 40 MG TAB PO SCH (08:15)
[2020-12-07] MEDS: SENNA 8.6 MG TAB PO SCH (08:16)
[2020-12-07] MEDS: METOPROLOL SUCC 25MG EXT REL TAB PO SCH ×2 (08:18→20:03)
[2020-12-07] MEDS: TIMOLOL MALEATE 0.5% OP SOLN 5 ML BTL OPB SCH ×2 (08:22→20:00)
--- NOTE | 2020-12-07 13:10 | Hospitalist Progress Note ---
Date of Service December 07, 2020 Assessment & Plan (1) Pneumonia due to COVID-19 virus: Plan: Overall doing okay. Remains on 10 L of nasal cannula. Remains stable and does not appear to be in any distress. Completed course of remdesivir. Continue with Decadron. Continue IV Lasix 20 mg daily to keep balance negative. Continue monitor ins and outs along with daily weights. Still requiring high flow oxygen to maintain saturation We will give additional dose of Lasix of 20 mg IV today Condition has been deteriorating with worsening infiltration and chest x-ray We will give additional dose of Lasix 20 mg today and continue with 40 mg IV daily Clinically better and has been requiring 6 L of oxygen to maintain saturation Clinically much better and has been complicating normally but getting very short of breath with minimal exertion We will continue current management and give another dose of Lasix today Has had low blood pressure and will discontinue Lasix Oxygen requirements has gone down to 4 L/min We will get PT and OT evaluation and possible to do steps before discharge in a day or 2 (2) Coronary artery disease: Plan: History of renal artery stenosis status post stent in 2004, also history of carotid artery stent following which he had a small stroke affecting his right eye. In 2009 he had a cardiac catheterization showing nonocclusive coronary disease. Follows with [facility] cardiology. Overall patient is doing hemodynamically okay. Absence of any chest pain. Denies any cardiac symptoms (3) Elevated troponin: Plan: Likely secondary to demand ischemia. Continue to monitor. ECHO: Mild global hypokinesis, EF 45 to 50%, grade 1 diastolic dysfunction, mild mitral stenosis. (4) NSVT (nonsustained ventricular tachycardia): Plan: Home Toprol 12.5mg qHS was increased to BID this admission. Monitor and replace electrolytes as needed. No more episode of NSVT Denies any more cardiac symptoms (5) Leg wound, left: Plan: Wound care consulted Continue wound care (6) CKD (chronic kidney disease), stage III: Plan: renal function is currently at baseline. Monitor BMP in am with intermittent furosemide. Monitor PRP-creatinine remains stable (7) History of CVA (cerebrovascular accident): Plan: Continue aspirin, statin (8) History of stent insertion of renal artery: (9) History of right common carotid artery stent placement: Plan: -Continue ASA, Plavix, statin (10) Hypertension: Plan: Controlled on current therapy. (11) Hypothyroidism: Plan: -Continue levothyroxine per home regimen. (12) DVT prophylaxis: Plan: -SQ Lovenox Full Code Dispo-uncertain at this time. Cont PCU. Discussed with the daughter Admission and Anticipated Discharge Date Admission Date: November 23, 2020 Subjective 12/03/2020 The patient was seen and examined in telemetry unit and in the Covid room He has been sitting on a chair with minimal shortness of breath Has been requiring 13 L of oxygen to maintain saturation Has been communicating normally 12/04/2020 The patient was seen and examined in telemetry unit and in the Covid room He has been feeling much better still has cough and shortness of breath Has been requiring high flow oxygen to maintain saturation and the x-ray shows more infiltration bilaterally 12/05/2020 The patient was seen and examined in telemetry unit and in the Covid room He has been feeling much better today Requiring about 6 L of oxygen to maintain saturation Still gets very short of breath and desaturates with any activities 12/06/2020 The patient was seen and examined in telemetry unit and in the Covid room He feels much better today and has been requiring less than 6 L of oxygen to maintain saturation Still getting short of breath and desaturation with any activity 12/07/2020 The patient was seen and examined in telemetry unit and in the Covid room He has been feeling a little better today and is requiring up to 4 L of oxygen at rest to maintain saturation Still desaturates with minimal movement Review of Systems Review of Systems: All systems reviewed and are unremarkable except as noted below Respiratory: Moderate respiratory distress Musculoskeletal: Generally weak Physical Exam Physical Exam: Sitting on a chair moderate distress Constitutional: well developed, well nourished, + ill appearing and + obese Eyes: PERRL, conjunctivae normal, anicteric sclerae ENMT: external ear and nose normal, oropharynx normal Neck: trachea midline, no thyromegaly Respiratory: + respiratory distress (Mild to moderate distress at rest); no labored breathing Auscultation: + diminished lung sounds and + crackles (At the bases); no wheezes Cardiovascular: Rate/Rhythm: regular rate and regular rhythm; not tachycardic Heart Sounds: normal S1 and normal S2; no murmur Extremities: + edema (Trace edema bilaterally) Gastrointestinal (Abdomen): Inspection/Auscultation: normal bowel sounds; abdomen not distended Percussion/Palpation: abdomen soft; abdomen nontender Musculoskeletal: No acute arthritis in any joint Neurologic: Alert, awake and oriented x3. Generally weak but no focal neuro deficit Lymphatic: no cervical or axillary lymphadenopathy Results & Data Results & Data ([facility]) Vital Signs (Past 12 Hours) Vital Signs Temp Pulse Resp BP BP Pulse Ox 12/07/20 12:58 80 106/52 L 12/07/20 12:45 36.5 C 72 24 81/48 L 82/41 L 94 12/07/20 11:37 36.5 C 73 16 99/44 L 96 12/07/20 08:10 36.6 C 80 24 142/77 H 96 12/07/20 03:28 36.8 C 73 19 144/66 H 95 Medications Administered Current Inpatient Medications Acetaminophen (Acetaminophen 325 Mg Tab) 650 mg PO Q4H PRN PRN Reason: Pain or Fever Stop: 12/23/20 17:58 Last Admin: 11/24/20 00:04 Dose: 650 mg Documented by: Amlodipine Besylate (Amlodipine Besylate 5 Mg Tab) 5 mg PO HS [facility] Stop: 12/23/20 20:59 Last Admin: 12/06/20 20:53 Dose: 5 mg Documented by: Amlodipine Besylate (Amlodipine Besylate 5 Mg Tab) 5 mg PO HS PRN PRN Reason: systolic 160 or greater Stop: 12/23/20 18:39 Aspirin (Aspirin 81 Mg Ectab) 81 mg PO HS [facility] Stop: 12/24/20 20:59 Last Admin: 12/06/20 20:54 Dose: 81 mg Documented by: Clopidogrel Bisulfate (Clopidogrel Bisulfate 75 Mg Tab) 75 mg PO Q2D@0900 [facility] Stop: 12/25/20 08:59 Last Admin: 12/07/20 08:13 Dose: 75 mg Documented by: Docusate Sodium (Docusate Sodium 100 Mg Cap) 100 mg PO BID [facility] Stop: 01/01/21 12:14 Last Admin: 12/07/20 08:13 Dose: 100 mg Documented by: Enoxaparin Sodium (Enoxaparin Inj 40 Mg/0.4 Ml Syr) 40 mg SQ Q24H [facility] Stop: 12/23/20 18:59 Last Admin: 12/06/20 20:53 Dose: 40 mg Documented by: Finasteride (Finasteride 5 Mg Tab) 5 mg PO HS [facility]; Protocol Stop: 12/23/20 20:59 Last Admin: 12/06/20 20:54 Dose: 5 mg Documented by: Fluticasone Furoate (Fluticasone Furoate 100mcg 14 Puffs/Inhaler) 1 puffs INH QAM [facility] Stop: 12/24/20 08:59 Last Admin: 12/07/20 08:13 Dose: 1 puffs Documented by: Gabapentin (Gabapentin 300 Mg Cap) 300 mg PO TID [facility] Stop: 12/23/20 20:59 Last Admin: 12/07/20 08:14 Dose: 300 mg Documented by: Ipratropium [place] (Ipratropium [place] Neb Soln 0.02% 2.5 Ml Vial) 0.5 mg INH Q4H PRN PRN Reason: SOB OR WHEEZING Stop: 12/23/20 23:44 Ipratropium [place] (Ipratropium [place] Neb Soln 0.02% 2.5 Ml Vial) 0.5 mg INH Q4H PRN PRN Reason: SOB/WHEEZING Stop: 12/27/20 00:59 Latanoprost (Latanoprost 0.005% Op Soln 2.5 Ml Btl) 1 drops OPB HS [facility] Stop: 12/23/20 20:59 Last Admin: 12/06/20 20:54 Dose: 1 drops Documented by: Levalbuterol HCl (Levalbuterol 1.25mg/0.5ml Neb) 1.25 mg INH Q4H PRN PRN Reason: SOB OR WHEEZING Stop: 12/23/20 23:44 Last Admin: 11/29/20 01:03 Dose: 1.25 mg Documented by: Levalbuterol HCl (Levalbuterol 1.25mg/0.5ml Neb) 1.25 mg INH Q4H PRN PRN Reason: SOB/WHEEZING Stop: 12/27/20 00:59 Levothyroxine Sodium (Levothyroxine Sodium 150 Mcg Tablet) 150 mcg PO DAILYBB [facility] Stop: 12/24/20 06:29 Last Admin: 12/07/20 06:12 Dose: 150 mcg Documented by: Losartan Potassium (Losartan Potassium 50 Mg Tab) 50 mg PO DAILY [facility] Stop: 12/28/20 11:44 Last Admin: 12/07/20 08:14 Dose: 50 mg Documented by: Metoprolol Succinate (Metoprolol Succ 25mg Ext Rel Tab) 12.5 mg PO BID [facility] Stop: 12/25/20 16:29 Last Admin: 12/07/20 08:18 Dose: 12.5 mg Documented by: Oxymetazoline HCl (Oxymetazoline 0.05% 30 Ml Btl) 2 sprays NA BID PRN PRN Reason: epistaxis Stop: 01/01/21 20:44 Last Admin: 12/04/20 20:03 Dose: 2 sprays Documented by: Pantoprazole Sodium (Pantoprazole 40 Mg Tab) 40 mg PO DAILY [facility]; Protocol Stop: 12/24/20 08:59 Last Admin: 12/07/20 08:15 Dose: 40 mg Documented by: Polyethylene Glycol (Polyethylene (Miralax) 17 Gm Pack) 17 gm PO DAILY PRN PRN Reason: Constipation Stop: 01/01/21 12:10 Rosuvastatin Calcium (Rosuvastatin Calcium 10 Mg Tab) 10 mg PO HS [facility] Stop: 12/23/20 20:59 Last Admin: 12/06/20 20:55 Dose: 10 mg Documented by: Sennosides (Senna 8.6 Mg Tab) 17.2 mg PO QAM [facility] Stop: 01/01/21 12:14 Last Admin: 12/07/20 08:16 Dose: 17.2 mg Documented by: Sodium Chloride (Sodium Chloride 0.65% Na Soln 45 Ml ([place])) 2 sprays NA TID PRN PRN Reason: Nasal Congestion Stop: 01/01/21 20:44 Last Admin: 12/03/20 06:32 Dose: 2 sprays Documented by: Terazosin HCl (Terazosin Hcl 1 Mg Cap) 2 mg PO HS [facility] Stop: 12/23/20 20:59 Last Admin: 12/06/20 20:55 Dose: 2 mg Documented by: Timolol Maleate (Timolol Maleate 0.5% Op Soln 5 Ml Btl) 1 drops OPB BID [facility] Stop: 12/24/20 20:59 Last Admin: 12/07/20 08:22 Dose: 1 drops Documented by:
[2020-12-07] MEDS: ENOXAPARIN INJ 40 MG/0.4 ML SYR SQ SCH (19:22)
[2020-12-07] MEDS: LATANOPROST 0.005% OP SOLN 2.5 ML BTL OPB SCH (20:00)
[2020-12-07] MEDS: amLODIPine BESYLATE 5 MG TAB PO SCH (20:02)
[2020-12-07] MEDS: FINASTERIDE 5 MG TAB PO SCH (20:02)
[2020-12-07] MEDS: ASPIRIN 81 MG ECTAB PO SCH (20:02)
[2020-12-07] MEDS: TERAZOSIN HCL 1 MG CAP PO SCH (20:03)
[2020-12-07] MEDS: ROSUVASTATIN CALCIUM 10 MG TAB PO SCH (20:03)
[2020-12-08] MEDS: LEVOTHYROXINE SODIUM 150 MCG TABLET PO SCH (07:10)
[2020-12-08 07:19] LABS: Basophils # (auto) 0.02 K/uL (0-0.2); Basophils % (auto) 0.2 %; Eosinophils # (auto) 0.28 K/uL (0-0.5); Eosinophils % (auto) 2.8 %; Hematocrit (blood only) 42.1 % (42-52); Hemoglobin 13.9 g/dL (14.0-18.0); Immature Granulocytes # (auto) 0.13 K/uL (0.00-0.02); Immature Granulocytes % (auto) 1.3 %; Lymphocytes # (auto) 1.11 K/uL (1.2-3.4); Mean Corpuscular Hemoglobin 31.2 pg (25-34); Mean Corpuscular Volume 94.6 fL (80-100); Mean Platelet Volume 9.2 fL (7.4-10.4); Monocytes # (auto) 1.33 K/uL (0.11-0.59); Monocytes % (auto) 13.2 %; Neutrophils # (auto) 7.18 K/uL (1.4-6.5); Neutrophils % (auto) 71.5 %; Platelet Count 302 K/uL (130-400); RDW Coefficient of Variation 13.7 % (11.5-14.5); RDW Standard Deviation 47.5 fL (36.4-46.3); Red Blood Count 4.45 M/uL (4.7-6.1); White Blood Count 10.05 K/uL (4.8-10.8)
[2020-12-08] MEDS: DOCUSATE SODIUM 100 MG CAP PO SCH ×2 (08:11→20:23)
[2020-12-08] MEDS: FLUTICASONE FUROATE 100MCG 14 PUFFS/INHALER INH SCH (08:11)
[2020-12-08] MEDS: LOSARTAN POTASSIUM 50 MG TAB PO SCH (08:12)
[2020-12-08] MEDS: GABAPENTIN 300 MG CAP PO SCH ×3 (08:12→20:24)
[2020-12-08] MEDS: METOPROLOL SUCC 25MG EXT REL TAB PO SCH ×2 (08:12→20:23)
[2020-12-08] MEDS: PANTOprazole 40 MG TAB PO SCH (08:13)
[2020-12-08] MEDS: SENNA 8.6 MG TAB PO SCH (08:13)
[2020-12-08] MEDS: TIMOLOL MALEATE 0.5% OP SOLN 5 ML BTL OPB SCH ×2 (08:14→20:21)
[2020-12-08 08:17] LABS: BUN Creatinine Ratio 24.3 (10-20); Calcium 8.9 mg/dl (8.5-10.1); Creatinine Clr Calc Pharmacy 55.5 ml/min; Est GFR (African American) 58.6 ml/min; Est GFR (Non-African American) 50.6 ml/min; Magnesium 2.4 mg/dl (1.8-2.4); Phosphorus 3.1 mg/dl (2.5-4.9); Potassium 4.5 mmol/L (3.5-5.1)
--- NOTE | 2020-12-08 15:17 | Hospitalist Progress Note ---
Date of Service December 08, 2020 Assessment & Plan (1) Pneumonia due to COVID-19 virus: Plan: Overall doing okay. Remains on 10 L of nasal cannula. Remains stable and does not appear to be in any distress. Completed course of remdesivir. Continue with Decadron. Continue IV Lasix 20 mg daily to keep balance negative. Continue monitor ins and outs along with daily weights. Still requiring high flow oxygen to maintain saturation We will give additional dose of Lasix of 20 mg IV today Condition has been deteriorating with worsening infiltration and chest x-ray We will give additional dose of Lasix 20 mg today and continue with 40 mg IV daily Clinically better and has been requiring 6 L of oxygen to maintain saturation Clinically much better and has been complicating normally but getting very short of breath with minimal exertion We will continue current management and give another dose of Lasix today Has had low blood pressure and will discontinue Lasix Oxygen requirements has gone down to 4 L/min We will get PT and OT evaluation and possible to do steps before discharge in a day or 2 Remains extremely lethargic and the condition is unstable Not yet ready to be discharged (2) Coronary artery disease: Plan: History of renal artery stenosis status post stent in 2004, also history of carotid artery stent following which he had a small stroke affecting his right eye. In 2009 he had a cardiac catheterization showing nonocclusive coronary disease. Follows with [facility] cardiology. Overall patient is doing hemodynamically okay. Absence of any chest pain. Denies any cardiac symptoms (3) Elevated troponin: Plan: Likely secondary to demand ischemia. Continue to monitor. ECHO: Mild global hypokinesis, EF 45 to 50%, grade 1 diastolic dysfunction, mild mitral stenosis. (4) NSVT (nonsustained ventricular tachycardia): Plan: Home Toprol 12.5mg qHS was increased to BID this admission. Monitor and replace electrolytes as needed. No more episode of NSVT Denies any more cardiac symptoms (5) Leg wound, left: Plan: Wound care consulted Continue wound care (6) CKD (chronic kidney disease), stage III: Plan: renal function is currently at baseline. Monitor BMP in am with intermittent furosemide. Monitor PRP-creatinine remains stable (7) History of CVA (cerebrovascular accident): Plan: Continue aspirin, statin (8) History of stent insertion of renal artery: (9) History of right common carotid artery stent placement: Plan: -Continue ASA, Plavix, statin (10) Hypertension: Plan: Controlled on current therapy. (11) Hypothyroidism: Plan: -Continue levothyroxine per home regimen. (12) DVT prophylaxis: Plan: -SQ Lovenox Full Code Dispo-uncertain at this time. Cont PCU. Discussed with the daughter Admission and Anticipated Discharge Date Admission Date: November 23, 2020 Subjective 12/03/2020 The patient was seen and examined in telemetry unit and in the Covid room He has been sitting on a chair with minimal shortness of breath Has been requiring 13 L of oxygen to maintain saturation Has been communicating normally 12/04/2020 The patient was seen and examined in telemetry unit and in the Covid room He has been feeling much better still has cough and shortness of breath Has been requiring high flow oxygen to maintain saturation and the x-ray shows more infiltration bilaterally 12/05/2020 The patient was seen and examined in telemetry unit and in the Covid room He has been feeling much better today Requiring about 6 L of oxygen to maintain saturation Still gets very short of breath and desaturates with any activities 12/06/2020 The patient was seen and examined in telemetry unit and in the Covid room He feels much better today and has been requiring less than 6 L of oxygen to maintain saturation Still getting short of breath and desaturation with any activity 12/07/2020 The patient was seen and examined in telemetry unit and in the Covid room He has been feeling a little better today and is requiring up to 4 L of oxygen at rest to maintain saturation Still desaturates with minimal movement 12/08/2020 The patient was seen and examined in telemetry unit and in the Covid room His condition has been waxing and waning He required high flow oxygen this morning but during my examination it came down to 4 L/min Remains very weak and lethargic Review of Systems Review of Systems: All systems reviewed and are unremarkable except as noted below Respiratory: Moderate respiratory distress Musculoskeletal: Generally weak Physical Exam Physical Exam: Sitting on a chair moderate distress Constitutional: well developed, well nourished, + ill appearing and + obese Eyes: PERRL, conjunctivae normal, anicteric sclerae ENMT: external ear and nose normal, oropharynx normal Neck: trachea midline, no thyromegaly Respiratory: + respiratory distress (Mild to moderate distress at rest); no labored breathing Auscultation: + diminished lung sounds and + crackles (At the bases); no wheezes Cardiovascular: Rate/Rhythm: regular rate and regular rhythm; not tachycardic Heart Sounds: normal S1 and normal S2; no murmur Extremities: + edema (Trace edema bilaterally) Gastrointestinal (Abdomen): Inspection/Auscultation: normal bowel sounds; abdomen not distended Percussion/Palpation: abdomen soft; abdomen nontender Musculoskeletal: No acute arthritis in any joint Neurologic: Alert and awake. Generally very weak and lethargic Lymphatic: no cervical or axillary lymphadenopathy Results & Data Results & Data ([facility]) Vital Signs (Past 12 Hours) Vital Signs Temp Pulse Pulse Resp BP Pulse Ox 12/08/20 11:19 36.7 C 66 18 108/56 L 96 12/08/20 09:00 72 12/08/20 08:16 88 20 92 12/08/20 07:16 20 90 12/08/20 06:56 36.6 C 77 18 158/70 H 89 L 12/08/20 03:44 36.6 C 70 17 144/63 H 93 Laboratory Results Short CBC 12/08/20 Range/Units 06:13 WBC 10.05 (4.8-10.8) K/uL Hgb 13.9 L (14.0-18.0) g/dL Hct 42.1 (42-52) % Plt Count 302 (130-400) K/uL BMP 12/08/20 06:13 Sodium 140 Potassium 4.5 Chloride 100 Carbon Dioxide 34 H BUN 32 H Creatinine 1.32 Glucose 108 H Calcium 8.9 Medications Administered Current Inpatient Medications Acetaminophen (Acetaminophen 325 Mg Tab) 650 mg PO Q4H PRN PRN Reason: Pain or Fever Stop: 12/23/20 17:58 Last Admin: 11/24/20 00:04 Dose: 650 mg Documented by: Amlodipine Besylate (Amlodipine Besylate 5 Mg Tab) 5 mg PO HS [place] Stop: 12/23/20 20:59 Last Admin: 12/07/20 20:02 Dose: 5 mg Documented by: Amlodipine Besylate (Amlodipine Besylate 5 Mg Tab) 5 mg PO HS PRN PRN Reason: systolic 160 or greater Stop: 12/23/20 18:39 Aspirin (Aspirin 81 Mg Ectab) 81 mg PO HS [place] Stop: 12/24/20 20:59 Last Admin: 12/07/20 20:02 Dose: 81 mg Documented by: Clopidogrel Bisulfate (Clopidogrel Bisulfate 75 Mg Tab) 75 mg PO Q2D@0900 [facility] Stop: 12/25/20 08:59 Last Admin: 12/07/20 08:13 Dose: 75 mg Documented by: Docusate Sodium (Docusate Sodium 100 Mg Cap) 100 mg PO BID [facility] Stop: 01/01/21 12:14 Last Admin: 12/08/20 08:11 Dose: 100 mg Documented by: Enoxaparin Sodium (Enoxaparin Inj 40 Mg/0.4 Ml Syr) 40 mg SQ Q24H [facility] Stop: 12/23/20 18:59 Last Admin: 12/07/20 19:22 Dose: 40 mg Documented by: Finasteride (Finasteride 5 Mg Tab) 5 mg PO [facility]; Protocol Stop: 12/23/20 20:59 Last Admin: 12/07/20 20:02 Dose: 5 mg Documented by: Fluticasone Furoate (Fluticasone Furoate 100mcg 14 Puffs/Inhaler) 1 puffs INH QAM [facility] Stop: 12/24/20 08:59 Last Admin: 12/08/20 08:11 Dose: 1 puffs Documented by: Gabapentin (Gabapentin 300 Mg Cap) 300 mg PO TID [facility] Stop: 12/23/20 20:59 Last Admin: 12/08/20 14:14 Dose: 300 mg Documented by: Ipratropium [place] (Ipratropium [place] Neb Soln 0.02% 2.5 Ml Vial) 0.5 mg INH Q4H PRN PRN Reason: SOB OR WHEEZING Stop: 12/23/20 23:44 Ipratropium [place] (Ipratropium [place] Neb Soln 0.02% 2.5 Ml Vial) 0.5 mg INH Q4H PRN PRN Reason: SOB/WHEEZING Stop: 12/27/20 00:59 Latanoprost (Latanoprost 0.005% Op Soln 2.5 Ml Btl) 1 drops OPB HS [facility] Stop: 12/23/20 20:59 Last Admin: 12/07/20 20:00 Dose: 1 drops Documented by: Levalbuterol HCl (Levalbuterol 1.25mg/0.5ml Neb) 1.25 mg INH Q4H PRN PRN Reason: SOB OR WHEEZING Stop: 12/23/20 23:44 Last Admin: 11/29/20 01:03 Dose: 1.25 mg Documented by: Levalbuterol HCl (Levalbuterol 1.25mg/0.5ml Neb) 1.25 mg INH Q4H PRN PRN Reason: SOB/WHEEZING Stop: 12/27/20 00:59 Levothyroxine Sodium (Levothyroxine Sodium 150 Mcg Tablet) 150 mcg PO DAILYBB [place] Stop: 12/24/20 06:29 Last Admin: 12/08/20 07:10 Dose: 150 mcg Documented by: Losartan Potassium (Losartan Potassium 50 Mg Tab) 50 mg PO DAILY [facility] Stop: 12/28/20 11:44 Last Admin: 12/08/20 08:12 Dose: 50 mg Documented by: Metoprolol Succinate (Metoprolol Succ 25mg Ext Rel Tab) 12.5 mg PO BID [place] Stop: 12/25/20 16:29 Last Admin: 12/08/20 08:12 Dose: 12.5 mg Documented by: Oxymetazoline HCl (Oxymetazoline 0.05% 30 Ml Btl) 2 sprays NA BID PRN PRN Reason: epistaxis Stop: 01/01/21 20:44 Last Admin: 12/04/20 20:03 Dose: 2 sprays Documented by: Pantoprazole Sodium (Pantoprazole 40 Mg Tab) 40 mg PO DAILY [facility]; Protocol Stop: 12/24/20 08:59 Last Admin: 12/08/20 08:13 Dose: 40 mg Documented by: Polyethylene Glycol (Polyethylene (Miralax) 17 Gm Pack) 17 gm PO DAILY PRN PRN Reason: Constipation Stop: 01/01/21 12:10 Rosuvastatin Calcium (Rosuvastatin Calcium 10 Mg Tab) 10 mg PO HS [place] Stop: 12/23/20 20:59 Last Admin: 12/07/20 20:03 Dose: 10 mg Documented by: Sennosides (Senna 8.6 Mg Tab) 17.2 mg PO QAM [facility] Stop: 01/01/21 12:14 Last Admin: 12/08/20 08:13 Dose: 17.2 mg Documented by: Sodium Chloride (Sodium Chloride 0.65% Na Soln 45 Ml ([place])) 2 sprays NA TID PRN PRN Reason: Nasal Congestion Stop: 01/01/21 20:44 Last Admin: 12/03/20 06:32 Dose: 2 sprays Documented by: Terazosin HCl (Terazosin Hcl 1 Mg Cap) 2 mg PO HS [facility] Stop: 12/23/20 20:59 Last Admin: 12/07/20 20:03 Dose: 2 mg Documented by: Timolol Maleate (Timolol Maleate 0.5% Op Soln 5 Ml Btl) 1 drops OPB BID [place] Stop: 12/24/20 20:59 Last Admin: 12/08/20 08:14 Dose: 1 drops Documented by:
[2020-12-08] MEDS: ENOXAPARIN INJ 40 MG/0.4 ML SYR SQ SCH (20:20)
[2020-12-08] MEDS: ACETAMINOPHEN 325 MG TAB PO PRN (20:20)
[2020-12-08] MEDS: amLODIPine BESYLATE 5 MG TAB PO SCH (20:20)
[2020-12-08] MEDS: ASPIRIN 81 MG ECTAB PO SCH (20:21)
[2020-12-08] MEDS: LATANOPROST 0.005% OP SOLN 2.5 ML BTL OPB SCH (20:23)
[2020-12-08] MEDS: TERAZOSIN HCL 1 MG CAP PO SCH (20:24)
[2020-12-08] MEDS: FINASTERIDE 5 MG TAB PO SCH (20:24)
[2020-12-08] MEDS: ROSUVASTATIN CALCIUM 10 MG TAB PO SCH (20:24)
[2020-12-09] MEDS: LEVOTHYROXINE SODIUM 150 MCG TABLET PO SCH (06:32)
[2020-12-09] MEDS: FLUTICASONE FUROATE 100MCG 14 PUFFS/INHALER INH SCH (10:18)
[2020-12-09] MEDS: DOCUSATE SODIUM 100 MG CAP PO SCH ×2 (10:19→19:49)
[2020-12-09] MEDS: TIMOLOL MALEATE 0.5% OP SOLN 5 ML BTL OPB SCH ×2 (10:20→19:52)
[2020-12-09] MEDS: GABAPENTIN 300 MG CAP PO SCH ×3 (10:20→19:50)
[2020-12-09] MEDS: METOPROLOL SUCC 25MG EXT REL TAB PO SCH ×2 (10:21→19:47)
[2020-12-09] MEDS: PANTOprazole 40 MG TAB PO SCH (10:21)
[2020-12-09] MEDS: LOSARTAN POTASSIUM 50 MG TAB PO SCH (10:21)
[2020-12-09] MEDS: CLOPIDOGREL BISULFATE 75 MG TAB PO SCH (10:21)
[2020-12-09] MEDS: SENNA 8.6 MG TAB PO SCH (10:22)
--- NOTE | 2020-12-09 15:34 | Hospitalist Progress Note ---
Date of Service December 09, 2020 Assessment & Plan (1) Pneumonia due to COVID-19 virus: Plan: Overall doing okay. Remains on 10 L of nasal cannula. Remains stable and does not appear to be in any distress. Completed course of remdesivir. Continue with Decadron. Continue IV Lasix 20 mg daily to keep balance negative. Continue monitor ins and outs along with daily weights. Still requiring high flow oxygen to maintain saturation We will give additional dose of Lasix of 20 mg IV today Condition has been deteriorating with worsening infiltration and chest x-ray We will give additional dose of Lasix 20 mg today and continue with 40 mg IV daily Clinically better and has been requiring 6 L of oxygen to maintain saturation Clinically much better and has been complicating normally but getting very short of breath with minimal exertion We will continue current management and give another dose of Lasix today Has had low blood pressure and will discontinue Lasix Oxygen requirements has gone down to 4 L/min Oxygen requirement is fluctuating and is up to 6 L/min He has had physical therapy with difficulty Remains generally weak and lethargic-has a negative balance of 16,659 mL so far- normal Lasix due to low blood pressure (2) Coronary artery disease: Plan: History of renal artery stenosis status post stent in 2004, also history of carotid artery stent following which he had a small stroke affecting his right eye. In 2009 he had a cardiac catheterization showing nonocclusive coronary disease. Follows with [facility] cardiology. Overall patient is doing hemodynamically okay. Absence of any chest pain. Denies any cardiac symptoms (3) Elevated troponin: Plan: Likely secondary to demand ischemia. Continue to monitor. ECHO: Mild global hypokinesis, EF 45 to 50%, grade 1 diastolic dysfunction, mild mitral stenosis. (4) NSVT (nonsustained ventricular tachycardia): Plan: Home Toprol 12.5mg qHS was increased to BID this admission. Monitor and replace electrolytes as needed. No more episode of NSVT Denies any more cardiac symptoms (5) Leg wound, left: Plan: Wound care consulted Continue wound care (6) CKD (chronic kidney disease), stage III: Plan: renal function is currently at baseline. Monitor BMP in am with intermittent furosemide. Monitor PRP-creatinine remains stable (7) History of CVA (cerebrovascular accident): Plan: Continue aspirin, statin (8) History of stent insertion of renal artery: (9) History of right common carotid artery stent placement: Plan: -Continue ASA, Plavix, statin (10) Hypertension: Plan: Controlled on current therapy. (11) Hypothyroidism: Plan: -Continue levothyroxine per home regimen. (12) DVT prophylaxis: Plan: -SQ Lovenox Full Code Dispo-uncertain at this time. Cont PCU. Discussed with the daughter Admission and Anticipated Discharge Date Admission Date: November 23, 2020 Subjective 12/03/2020 The patient was seen and examined in telemetry unit and in the Covid room He has been sitting on a chair with minimal shortness of breath Has been requiring 13 L of oxygen to maintain saturation Has been communicating normally 12/04/2020 The patient was seen and examined in telemetry unit and in the Covid room He has been feeling much better still has cough and shortness of breath Has been requiring high flow oxygen to maintain saturation and the x-ray shows more infiltration bilaterally 12/05/2020 The patient was seen and examined in telemetry unit and in the Covid room He has been feeling much better today Requiring about 6 L of oxygen to maintain saturation Still gets very short of breath and desaturates with any activities 12/06/2020 The patient was seen and examined in telemetry unit and in the Covid room He feels much better today and has been requiring less than 6 L of oxygen to maintain saturation Still getting short of breath and desaturation with any activity 12/07/2020 The patient was seen and examined in telemetry unit and in the Covid room He has been feeling a little better today and is requiring up to 4 L of oxygen at rest to maintain saturation Still desaturates with minimal movement 12/08/2020 The patient was seen and examined in telemetry unit and in the Covid room His condition has been waxing and waning He required high flow oxygen this morning but during my examination it came down to 4 L/min Remains very weak and lethargic 12/09/2020 The patient was seen and examined in telemetry unit and in the Covid room He has been feeling a little better today Underwent physical therapy and did about 1-1/2 lap Still requiring up to 6 L of oxygen to maintain saturation at rest Review of Systems Review of Systems: All systems reviewed and are unremarkable except as noted below Respiratory: Moderate respiratory distress Musculoskeletal: Generally weak Physical Exam Physical Exam: Sitting on a chair moderate distress Constitutional: well developed, well nourished, + ill appearing and + obese Eyes: PERRL, conjunctivae normal, anicteric sclerae ENMT: external ear and nose normal, oropharynx normal Neck: trachea midline, no thyromegaly Respiratory: + respiratory distress (Mild to moderate distress at rest); no labored breathing Auscultation: + diminished lung sounds and + crackles (At the bases); no wheezes Cardiovascular: Rate/Rhythm: regular rate and regular rhythm; not tachycardic Heart Sounds: normal S1 and normal S2; no murmur Extremities: + edema (Trace edema bilaterally) Gastrointestinal (Abdomen): Inspection/Auscultation: normal bowel sounds; abdomen not distended Percussion/Palpation: abdomen soft; abdomen nontender Musculoskeletal: No acute arthritis in any joint Neurologic: Alert, awake and oriented x3. Generally very weak and lethargic Lymphatic: no cervical or axillary lymphadenopathy Results & Data Results & Data ([facility]) Vital Signs (Past 12 Hours) Vital Signs Temp Pulse Pulse Resp BP Pulse Ox 12/09/20 11:33 36.7 C 79 18 112/61 93 12/09/20 08:00 73 12/09/20 07:14 36.8 C 80 20 140/57 L 90 Medications Administered Current Inpatient Medications Acetaminophen (Acetaminophen 325 Mg Tab) 650 mg PO Q4H PRN PRN Reason: Pain or Fever Stop: 12/23/20 17:58 Last Admin: 12/08/20 20:20 Dose: 650 mg Documented by: Amlodipine Besylate (Amlodipine Besylate 5 Mg Tab) 5 mg PO HS [place] Stop: 12/23/20 20:59 Last Admin: 12/08/20 20:20 Dose: 5 mg Documented by: Amlodipine Besylate (Amlodipine Besylate 5 Mg Tab) 5 mg PO HS PRN PRN Reason: systolic 160 or greater Stop: 12/23/20 18:39 Aspirin (Aspirin 81 Mg Ectab) 81 mg PO HS [place] Stop: 12/24/20 20:59 Last Admin: 12/08/20 20:21 Dose: 81 mg Documented by: Clopidogrel Bisulfate (Clopidogrel Bisulfate 75 Mg Tab) 75 mg PO Q2D@0900 [facility] Stop: 12/25/20 08:59 Last Admin: 12/09/20 10:21 Dose: 75 mg Documented by: Docusate Sodium (Docusate Sodium 100 Mg Cap) 100 mg PO BID [facility] Stop: 01/01/21 12:14 Last Admin: 12/09/20 10:19 Dose: 100 mg Documented by: Enoxaparin Sodium (Enoxaparin Inj 40 Mg/0.4 Ml Syr) 40 mg SQ Q24H [facility] Stop: 12/23/20 18:59 Last Admin: 12/08/20 20:20 Dose: 40 mg Documented by: Finasteride (Finasteride 5 Mg Tab) 5 mg PO [facility]; Protocol Stop: 12/23/20 20:59 Last Admin: 12/08/20 20:24 Dose: 5 mg Documented by: Fluticasone Furoate (Fluticasone Furoate 100mcg 14 Puffs/Inhaler) 1 puffs INH QAM [facility] Stop: 12/24/20 08:59 Last Admin: 12/09/20 10:18 Dose: 1 puffs Documented by: Gabapentin (Gabapentin 300 Mg Cap) 300 mg PO TID [facility] Stop: 12/23/20 20:59 Last Admin: 12/09/20 14:42 Dose: 300 mg Documented by: Ipratropium [place] (Ipratropium [place] Neb Soln 0.02% 2.5 Ml Vial) 0.5 mg INH Q4H PRN PRN Reason: SOB OR WHEEZING Stop: 12/23/20 23:44 Ipratropium [place] (Ipratropium [place] Neb Soln 0.02% 2.5 Ml Vial) 0.5 mg INH Q4H PRN PRN Reason: SOB/WHEEZING Stop: 12/27/20 00:59 Latanoprost (Latanoprost 0.005% Op Soln 2.5 Ml Btl) 1 drops OPB [facility] Stop: 12/23/20 20:59 Last Admin: 12/08/20 20:23 Dose: 1 drops Documented by: Levalbuterol HCl (Levalbuterol 1.25mg/0.5ml Neb) 1.25 mg INH Q4H PRN PRN Reason: SOB OR WHEEZING Stop: 12/23/20 23:44 Last Admin: 11/29/20 01:03 Dose: 1.25 mg Documented by: Levalbuterol HCl (Levalbuterol 1.25mg/0.5ml Neb) 1.25 mg INH Q4H PRN PRN Reason: SOB/WHEEZING Stop: 12/27/20 00:59 Levothyroxine Sodium (Levothyroxine Sodium 150 Mcg Tablet) 150 mcg PO DAILYBB [facility] Stop: 12/24/20 06:29 Last Admin: 12/09/20 06:32 Dose: 150 mcg Documented by: Losartan Potassium (Losartan Potassium 50 Mg Tab) 50 mg PO DAILY [facility] Stop: 12/28/20 11:44 Last Admin: 12/09/20 10:21 Dose: 50 mg Documented by: Metoprolol Succinate (Metoprolol Succ 25mg Ext Rel Tab) 12.5 mg PO BID [place] Stop: 12/25/20 16:29 Last Admin: 12/09/20 10: Dose: 12.5 mg Documented by: Oxymetazoline HCl (Oxymetazoline 0.05% 30 Ml Btl) 2 sprays NA BID PRN PRN Reason: epistaxis Stop: 01/01/21 20:44 Last Admin: 12/04/20 20:03 Dose: 2 sprays Documented by: Pantoprazole Sodium (Pantoprazole 40 Mg Tab) 40 mg PO DAILY [facility]; Protocol Stop: 12/24/20 08:59 Last Admin: 12/09/20 10:21 Dose: 40 mg Documented by: Polyethylene Glycol (Polyethylene (Miralax) 17 Gm Pack) 17 gm PO DAILY PRN PRN Reason: Constipation Stop: 01/01/21 12:10 Rosuvastatin Calcium (Rosuvastatin Calcium 10 Mg Tab) 10 mg PO HS [facility] Stop: 12/23/20 20:59 Last Admin: 12/08/20 20:24 Dose: 10 mg Documented by: Sennosides (Senna 8.6 Mg Tab) 17.2 mg PO QAM [facility] Stop: 01/01/21 12:14 Last Admin: 12/09/20 10:22 Dose: 17.2 mg Documented by: Sodium Chloride (Sodium Chloride 0.65% Na Soln 45 Ml ([place])) 2 sprays NA TID PRN PRN Reason: Nasal Congestion Stop: 01/01/21 20:44 Last Admin: 12/03/20 06:32 Dose: 2 sprays Documented by: Terazosin HCl (Terazosin Hcl 1 Mg Cap) 2 mg PO HS [facility] Stop: 12/23/20 20:59 Last Admin: 12/08/20 20:24 Dose: 2 mg Documented by: Timolol Maleate (Timolol Maleate 0.5% Op Soln 5 Ml Btl) 1 drops OPB BID [facility] Stop: 12/24/20 20:59 Last Admin: 12/09/20 10:20 Dose: 1 drops Documented by:
[2020-12-09] MEDS: ENOXAPARIN INJ 40 MG/0.4 ML SYR SQ SCH (19:46)
[2020-12-09] MEDS: FINASTERIDE 5 MG TAB PO SCH (19:49)
[2020-12-09] MEDS: ASPIRIN 81 MG ECTAB PO SCH (19:50)
[2020-12-09] MEDS: amLODIPine BESYLATE 5 MG TAB PO SCH (19:51)
[2020-12-09] MEDS: TERAZOSIN HCL 1 MG CAP PO SCH (19:53)
[2020-12-09] MEDS: ROSUVASTATIN CALCIUM 10 MG TAB PO SCH (19:53)
[2020-12-09] MEDS: LATANOPROST 0.005% OP SOLN 2.5 ML BTL OPB SCH (19:54)
[2020-12-10] MEDS: LEVOTHYROXINE SODIUM 150 MCG TABLET PO SCH (06:22)
[2020-12-10 07:03] LABS: Calcium 8.5 mg/dl (8.5-10.1); Creatinine Clr Calc Pharmacy 60.1 ml/min; Est GFR (African American) 65.1 ml/min; Est GFR (Non-African American) 56.2 ml/min; Magnesium 2.3 mg/dl (1.8-2.4); Phosphorus 3.1 mg/dl (2.5-4.9); Potassium 4.3 mmol/L (3.5-5.1)
[2020-12-10] MEDS: DOCUSATE SODIUM 100 MG CAP PO SCH ×2 (09:07→20:09)
[2020-12-10] MEDS: GABAPENTIN 300 MG CAP PO SCH ×3 (09:08→20:13)
[2020-12-10] MEDS: FLUTICASONE FUROATE 100MCG 14 PUFFS/INHALER INH SCH (09:08)
[2020-12-10] MEDS: PANTOprazole 40 MG TAB PO SCH (09:09)
[2020-12-10] MEDS: LOSARTAN POTASSIUM 50 MG TAB PO SCH (09:09)
[2020-12-10] MEDS: SENNA 8.6 MG TAB PO SCH (09:11)
[2020-12-10] MEDS: TIMOLOL MALEATE 0.5% OP SOLN 5 ML BTL OPB SCH ×2 (09:11→20:15)
[2020-12-10] MEDS: METOPROLOL SUCC 25MG EXT REL TAB PO SCH ×2 (09:14→20:14)
--- NOTE | 2020-12-10 16:42 | Hospitalist Progress Note ---
Date of Service December 10, 2020 Assessment & Plan (1) Pneumonia due to COVID-19 virus: Plan: Overall doing okay. Remains on 10 L of nasal cannula. Remains stable and does not appear to be in any distress. Completed course of remdesivir. Continue with Decadron. Continue IV Lasix 20 mg daily to keep balance negative. Continue monitor ins and outs along with daily weights. Still requiring high flow oxygen to maintain saturation We will give additional dose of Lasix of 20 mg IV today Condition has been deteriorating with worsening infiltration and chest x-ray We will give additional dose of Lasix 20 mg today and continue with 40 mg IV daily Clinically better and has been requiring 6 L of oxygen to maintain saturation Clinically much better and has been complicating normally but getting very short of breath with minimal exertion We will continue current management and give another dose of Lasix today Has had low blood pressure and will discontinue Lasix Oxygen requirements has gone down to 4 L/min Oxygen requirement is fluctuating and is up to 6 L/min He has had physical therapy with difficulty Remains generally weak and lethargic-has a negative balance of 16,659 mL so far 12/09/20 Has been feeling better at rest but remains very weak and lethargic We will continue current management (2) Coronary artery disease: Plan: History of renal artery stenosis status post stent in 2004, also history of carotid artery stent following which he had a small stroke affecting his right eye. In 2009 he had a cardiac catheterization showing nonocclusive coronary disease. Follows with [facility] cardiology. Overall patient is doing hemodynamically okay. Absence of any chest pain. Denies any cardiac symptoms (3) Elevated troponin: Plan: Likely secondary to demand ischemia. Continue to monitor. ECHO: Mild global hypokinesis, EF 45 to 50%, grade 1 diastolic dysfunction, mild mitral stenosis. (4) NSVT (nonsustained ventricular tachycardia): Plan: Home Toprol 12.5mg qHS was increased to BID this admission. Monitor and replace electrolytes as needed. No more episode of NSVT Denies any more cardiac symptoms (5) Leg wound, left: Plan: Wound care consulted Continue wound care (6) CKD (chronic kidney disease), stage III: Plan: renal function is currently at baseline. Monitor BMP in am with intermittent furosemide. Monitor PRP-creatinine remains stable (7) History of CVA (cerebrovascular accident): Plan: Continue aspirin, statin (8) History of stent insertion of renal artery: (9) History of right common carotid artery stent placement: Plan: -Continue ASA, Plavix, statin (10) Hypertension: Plan: Controlled on current therapy. (11) Hypothyroidism: Plan: -Continue levothyroxine per home regimen. (12) DVT prophylaxis: Plan: -SQ Lovenox Full Code Dispo-uncertain at this time. Cont PCU. Discussed with the daughter Admission and Anticipated Discharge Date Admission Date: November 23, 2020 Subjective 12/03/2020 The patient was seen and examined in telemetry unit and in the Covid room He has been sitting on a chair with minimal shortness of breath Has been requiring 13 L of oxygen to maintain saturation Has been communicating normally 12/04/2020 The patient was seen and examined in telemetry unit and in the Covid room He has been feeling much better still has cough and shortness of breath Has been requiring high flow oxygen to maintain saturation and the x-ray shows more infiltration bilaterally 12/05/2020 The patient was seen and examined in telemetry unit and in the Covid room He has been feeling much better today Requiring about 6 L of oxygen to maintain saturation Still gets very short of breath and desaturates with any activities 12/06/2020 The patient was seen and examined in telemetry unit and in the Covid room He feels much better today and has been requiring less than 6 L of oxygen to maintain saturation Still getting short of breath and desaturation with any activity 12/07/2020 The patient was seen and examined in telemetry unit and in the Covid room He has been feeling a little better today and is requiring up to 4 L of oxygen at rest to maintain saturation Still desaturates with minimal movement 12/08/2020 The patient was seen and examined in telemetry unit and in the Covid room His condition has been waxing and waning He required high flow oxygen this morning but during my examination it came down to 4 L/min Remains very weak and lethargic 12/09/2020 The patient was seen and examined in telemetry unit and in the Covid room He has been feeling a little better today Underwent physical therapy and did about 1-1/2 lap Still requiring up to 6 L of oxygen to maintain saturation at rest 12/10/2020 The patient was seen and examined in telemetry unit and in the Covid room He has been feeling much better at rest but is still requiring up to 6 L of oxygen to maintain saturation He denies any symptoms at rest except weakness Review of Systems Review of Systems: All systems reviewed and are unremarkable except as noted below Respiratory: Minimal respiratory distress at rest Musculoskeletal: Generally weak Physical Exam Physical Exam: Lying in bed without any acute distress Constitutional: well developed, well nourished, + ill appearing and + obese Eyes: PERRL, conjunctivae normal, anicteric sclerae ENMT: external ear and nose normal, oropharynx normal Neck: trachea midline, no thyromegaly Respiratory: + respiratory distress (Mild distress at rest); no labored breathing Auscultation: + diminished lung sounds and + crackles (At the bases); no wheezes Cardiovascular: Rate/Rhythm: regular rate and regular rhythm; not tachycardic Heart Sounds: normal S1 and normal S2; no murmur Extremities: + edema (Trace edema bilaterally) Gastrointestinal (Abdomen): Inspection/Auscultation: normal bowel sounds; abdomen not distended Percussion/Palpation: abdomen soft; abdomen nontender Musculoskeletal: No acute arthritis in any joint Neurologic: Alert, awake and oriented x3. No focal sensory and motor deficit appreciated Lymphatic: no cervical or axillary lymphadenopathy Results & Data Results & Data ([facility]) Vital Signs (Past 12 Hours) Vital Signs Temp Pulse Pulse Resp BP Pulse Ox 12/10/20 15:08 36.7 C 71 18 127/63 94 12/10/20 11:09 36.4 C L 79 18 101/76 99 12/10/20 08:00 86 12/10/20 07:12 36.5 C 75 19 141/70 H 90 Laboratory Results [facility] 12/10/20 06:08 Sodium 140 Potassium 4.3 Chloride 105 Carbon Dioxide 33 H BUN 23 H Creatinine 1.21 Glucose 100 H Calcium 8.5 Medications Administered Current Inpatient Medications Acetaminophen (Acetaminophen 325 Mg Tab) 650 mg PO Q4H PRN PRN Reason: Pain or Fever Stop: 12/23/20 17:58 Last Admin: 12/08/20 20:20 Dose: 650 mg Documented by: Amlodipine Besylate (Amlodipine Besylate 5 Mg Tab) 5 mg PO HS [facility] Stop: 12/23/20 20:59 Last Admin: 12/09/20 19:51 Dose: 5 mg Documented by: Amlodipine Besylate (Amlodipine Besylate 5 Mg Tab) 5 mg PO HS PRN PRN Reason: systolic 160 or greater Stop: 12/23/20 18:39 Aspirin (Aspirin 81 Mg Ectab) 81 mg PO HS [facility] Stop: 12/24/20 20:59 Last Admin: 12/09/20 19:50 Dose: 81 mg Documented by: Clopidogrel Bisulfate (Clopidogrel Bisulfate 75 Mg Tab) 75 mg PO Q2D@0900 [facility] Stop: 12/25/20 08:59 Last Admin: 12/09/20 10:21 Dose: 75 mg Documented by: Docusate Sodium (Docusate Sodium 100 Mg Cap) 100 mg PO BID [facility] Stop: 01/01/21 12:14 Last Admin: 12/10/20 09:07 Dose: 100 mg Documented by: Enoxaparin Sodium (Enoxaparin Inj 40 Mg/0.4 Ml Syr) 40 mg SQ Q24H [facility] Stop: 12/23/20 18:59 Last Admin: 12/09/20 19:46 Dose: 40 mg Documented by: Finasteride (Finasteride 5 Mg Tab) 5 mg PO [facility]; Protocol Stop: 12/23/20 20:59 Last Admin: 12/09/20 19:49 Dose: 5 mg Documented by: Fluticasone Furoate (Fluticasone Furoate 100mcg 14 Puffs/Inhaler) 1 puffs INH QAM [facility] Stop: 12/24/20 08:59 Last Admin: 12/10/20 09:08 Dose: 1 puffs Documented by: Gabapentin (Gabapentin 300 Mg Cap) 300 mg PO TID [facility] Stop: 12/23/20 20:59 Last Admin: 12/10/20 13:24 Dose: 300 mg Documented by: Ipratropium [place] (Ipratropium [place] Neb Soln 0.02% 2.5 Ml Vial) 0.5 mg INH Q4H PRN PRN Reason: SOB OR WHEEZING Stop: 12/23/20 23:44 Ipratropium [place] (Ipratropium [place] Neb Soln 0.02% 2.5 Ml Vial) 0.5 mg INH Q4H PRN PRN Reason: SOB/WHEEZING Stop: 12/27/20 00:59 Latanoprost (Latanoprost 0.005% Op Soln 2.5 Ml Btl) 1 drops OPB HS [facility] Stop: 12/23/20 20:59 Last Admin: 12/09/20 19:54 Dose: 1 drops Documented by: Levalbuterol HCl (Levalbuterol 1.25mg/0.5ml Neb) 1.25 mg INH Q4H PRN PRN Reason: SOB OR WHEEZING Stop: 12/23/20 23:44 Last Admin: 11/29/20 01:03 Dose: 1.25 mg Documented by: Levalbuterol HCl (Levalbuterol 1.25mg/0.5ml Neb) 1.25 mg INH Q4H PRN PRN Reason: SOB/WHEEZING Stop: 12/27/20 00:59 Levothyroxine Sodium (Levothyroxine Sodium 150 Mcg Tablet) [facility] Stop: 12/24/20 06:29 Last Admin: 12/10/20 06:22 Dose: 150 mcg Documented by: Losartan Potassium (Losartan Potassium 50 Mg Tab) 50 mg PO DAILY [facility] Stop: 12/28/20 11:44 Last Admin: 12/10/20 09:09 Dose: 50 mg Documented by: Metoprolol Succinate (Metoprolol Succ 25mg Ext Rel Tab) 12.5 mg PO BID [facility] Stop: 12/25/20 16:29 Last Admin: 12/10/20 09:14 Dose: 12.5 mg Documented by: Oxymetazoline HCl (Oxymetazoline 0.05% 30 Ml Btl) 2 sprays NA BID PRN PRN Reason: epistaxis Stop: 01/01/21 20:44 Last Admin: 12/04/20 20:03 Dose: 2 sprays Documented by: Pantoprazole Sodium (Pantoprazole 40 Mg Tab) 40 mg PO DAILY [facility]; Protocol Stop: 12/24/20 08:59 Last Admin: 12/10/20 09:09 Dose: 40 mg Documented by: Polyethylene Glycol (Polyethylene (Miralax) 17 Gm Pack) 17 gm PO DAILY PRN PRN Reason: Constipation Stop: 01/01/21 12:10 Rosuvastatin Calcium (Rosuvastatin Calcium 10 Mg Tab) 10 mg PO [facility] Stop: 12/23/20 20:59 Last Admin: 12/09/20 19:53 Dose: 10 mg Documented by: Sennosides (Senna 8.6 Mg Tab) 17.2 mg PO QAM [facility] Stop: 01/01/21 12:14 Last Admin: 12/10/20 09:11 Dose: Not Given Documented by: Sodium Chloride (Sodium Chloride 0.65% Na Soln 45 Ml ([place])) 2 sprays NA TID PRN PRN Reason: Nasal Congestion Stop: 01/01/21 20:44 Last Admin: 12/03/20 06:32 Dose: 2 sprays Documented by: Terazosin HCl (Terazosin Hcl 1 Mg Cap) 2 mg PO HS [place] Stop: 12/23/20 20:59 Last Admin: 12/09/20 19:53 Dose: 2 mg Documented by: Timolol Maleate (Timolol Maleate 0.5% Op Soln 5 Ml Btl) 1 drops OPB BID [facility] Stop: 12/24/20 20:59 Last Admin: 12/10/20 09:11 Dose: 1 drops Documented by:
[2020-12-10] MEDS: ENOXAPARIN INJ 40 MG/0.4 ML SYR SQ SCH (20:09)
[2020-12-10] MEDS: ROSUVASTATIN CALCIUM 10 MG TAB PO SCH (20:11)
[2020-12-10] MEDS: FINASTERIDE 5 MG TAB PO SCH (20:12)
[2020-12-10] MEDS: ASPIRIN 81 MG ECTAB PO SCH (20:12)
[2020-12-10] MEDS: amLODIPine BESYLATE 5 MG TAB PO SCH (20:13)
[2020-12-10] MEDS: TERAZOSIN HCL 1 MG CAP PO SCH (20:15)
[2020-12-10] MEDS: LATANOPROST 0.005% OP SOLN 2.5 ML BTL OPB SCH (20:16)
[2020-12-11] MEDS: LEVOTHYROXINE SODIUM 150 MCG TABLET PO SCH (05:58)
[2020-12-11] MEDS: SENNA 8.6 MG TAB PO SCH (07:44)
[2020-12-11] MEDS: DOCUSATE SODIUM 100 MG CAP PO SCH ×2 (07:44→20:19)
[2020-12-11] MEDS: ASPIRIN 81 MG ECTAB PO SCH (07:44)
[2020-12-11] MEDS: PANTOprazole 40 MG TAB PO SCH (07:44)
[2020-12-11] MEDS: LOSARTAN POTASSIUM 50 MG TAB PO SCH (07:45)
[2020-12-11] MEDS: GABAPENTIN 300 MG CAP PO SCH ×3 (07:45→20:18)
[2020-12-11] MEDS: METOPROLOL SUCC 25MG EXT REL TAB PO SCH ×2 (07:45→20:17)
[2020-12-11] MEDS: CLOPIDOGREL BISULFATE 75 MG TAB PO SCH (07:45)
[2020-12-11] MEDS: FLUTICASONE FUROATE 100MCG 14 PUFFS/INHALER INH SCH (07:46)
[2020-12-11] MEDS: TIMOLOL MALEATE 0.5% OP SOLN 5 ML BTL OPB SCH ×2 (07:47→20:22)
--- NOTE | 2020-12-11 14:56 | Hospitalist Progress Note ---
Date of Service December 11, 2020 Assessment & Plan (1) Pneumonia due to COVID-19 virus: Plan: Patient dennis on 6 L of nasal cannula. Overall doing okay no new concerns. Completed course of remdesivir. Continue with Decadron. Continue monitor ins and outs along with daily weights. Continue work with PT/OT. (2) Coronary artery disease: Plan: History of renal artery stenosis status post stent in 2004, also history of carotid artery stent following which he had a small stroke affecting his right eye. In 2009 he had a cardiac catheterization showing nonocclusive coronary disease. Follows with [facility] cardiology. Overall patient is doing hemodynamically okay. Absence of any chest pain. Denies any cardiac symptoms (3) Elevated troponin: Plan: Likely secondary to demand ischemia. Continue to monitor. ECHO: Mild global hypokinesis, EF 45 to 50%, grade 1 diastolic dysfunction, mild mitral stenosis. (4) NSVT (nonsustained ventricular tachycardia): Plan: Home Toprol 12.5mg qHS was increased to BID this admission. Monitor and replace electrolytes as needed. No more episode of NSVT Denies any more cardiac symptoms (5) Leg wound, left: Plan: Wound care consulted Continue wound care (6) CKD (chronic kidney disease), stage III: Plan: renal function is currently at baseline. Monitor BMP in am with intermittent furosemide. Monitor PRP-creatinine remains stable (7) History of CVA (cerebrovascular accident): Plan: Continue aspirin, statin (8) History of stent insertion of renal artery: (9) History of right common carotid artery stent placement: Plan: -Continue ASA, Plavix, statin (10) Hypertension: Plan: Controlled on current therapy. (11) Hypothyroidism: Plan: -Continue levothyroxine per home regimen. (12) DVT prophylaxis: Plan: -SQ Lovenox Full Code Dispo- Cont PCU. Admission and Anticipated Discharge Date Admission Date: November 23, 2020 Subjective Remains stable on 6 L of nasal cannula. Denies any worsening shortness of breath or any worsening cough. Reports appetite is okay. Rest of the review of system is negative. Review of Systems Review of Systems: All systems reviewed & are unremarkable except as noted in HPI & below Physical Exam Physical Exam: General: A&Ox3. HENT: NCAT, MMM, EOMI Eyes: PERRLA Neck: Supple, normal range of motion CVS: normal rate and rhythm Resp: b/l decrease breath sounds Abdomen: Soft, ND/NT Extremities: No c/c/e Neuro: face symmetric, no focal deficit Skin: no rashes/lesions/errythema MSK: no joint swelling/erythema Results & Data Results & Data ([facility]) Vital Signs (Past 12 Hours) Vital Signs Temp Pulse Pulse Resp BP Pulse Ox 12/11/20 11:03 36.7 C 71 19 103/51 L 99 12/11/20 08:00 73 12/11/20 07:30 36.5 C 81 25 H 148/73 H 90 12/11/20 03:20 37.1 C 82 16 136/57 L 92
[2020-12-11] MEDS: ENOXAPARIN INJ 40 MG/0.4 ML SYR SQ SCH (20:17)
[2020-12-11] MEDS: amLODIPine BESYLATE 5 MG TAB PO SCH (20:19)
[2020-12-11] MEDS: FINASTERIDE 5 MG TAB PO SCH (20:19)
[2020-12-11] MEDS: ROSUVASTATIN CALCIUM 10 MG TAB PO SCH (20:20)
[2020-12-11] MEDS: TERAZOSIN HCL 1 MG CAP PO SCH (20:20)
[2020-12-11] MEDS: ACETAMINOPHEN 325 MG TAB PO PRN (20:20)
[2020-12-11] MEDS: LATANOPROST 0.005% OP SOLN 2.5 ML BTL OPB SCH (20:22)
[2020-12-12] MEDS: LEVOTHYROXINE SODIUM 150 MCG TABLET PO SCH (06:33)
[2020-12-12 07:12] LABS: Basophils # (auto) 0.01 K/uL (0-0.2); Basophils % (auto) 0.1 %; Eosinophils # (auto) 0.31 K/uL (0-0.5); Eosinophils % (auto) 4.1 %; Hematocrit (blood only) 37.7 % (42-52); Hemoglobin 12.8 g/dL (14.0-18.0); Immature Granulocytes # (auto) 0.03 K/uL (0.00-0.02); Immature Granulocytes % (auto) 0.4 %; Lymphocytes # (auto) 1.14 K/uL (1.2-3.4); Lymphocytes % (auto) 15.2 %; Mean Corpuscular Hemoglobin 31.3 pg (25-34); Mean Corpuscular Volume 92.2 fL (80-100); Monocytes % (auto) 9.3 %; Neutrophils % (auto) 70.9 %; Platelet Count 253 K/uL (130-400); RDW Coefficient of Variation 13.7 % (11.5-14.5); RDW Standard Deviation 46.6 fL (36.4-46.3); Red Blood Count 4.09 M/uL (4.7-6.1); White Blood Count 7.49 K/uL (4.8-10.8)
[2020-12-12 07:44] LABS: BUN Creatinine Ratio 16.3 (10-20); Calcium 8.3 mg/dl (8.5-10.1); Creatinine Clr Calc Pharmacy 73.1 ml/min; Est GFR (Non-African American) 70.8 ml/min
[2020-12-12] MEDS: LOSARTAN POTASSIUM 50 MG TAB PO SCH (09:25)
[2020-12-12] MEDS: SENNA 8.6 MG TAB PO SCH (09:25)
[2020-12-12] MEDS: PANTOprazole 40 MG TAB PO SCH (09:25)
[2020-12-12] MEDS: GABAPENTIN 300 MG CAP PO SCH ×3 (09:26→20:50)
[2020-12-12] MEDS: FLUTICASONE FUROATE 100MCG 14 PUFFS/INHALER INH SCH (09:26)
[2020-12-12] MEDS: METOPROLOL SUCC 25MG EXT REL TAB PO SCH ×2 (09:27→20:49)
[2020-12-12] MEDS: DOCUSATE SODIUM 100 MG CAP PO SCH ×2 (09:27→20:49)
[2020-12-12] MEDS: TIMOLOL MALEATE 0.5% OP SOLN 5 ML BTL OPB SCH ×2 (09:28→20:51)
--- NOTE | 2020-12-12 12:27 | Hospitalist Progress Note ---
Date of Service December 12, 2020 Assessment & Plan (1) Pneumonia due to COVID-19 virus: Plan: Continues to require between 4 to 6 L of oxygen. No new issues. Completed course of remdesivir. Continue with Decadron. Continue monitor ins and outs along with daily weights. Continue work with PT/OT. Referrals has been sent. Care management is working on placement. (2) Coronary artery disease: Plan: History of renal artery stenosis status post stent in 2004, also history of carotid artery stent following which he had a small stroke affecting his right eye. In 2009 he had a cardiac catheterization showing nonocclusive coronary disease. Follows with [facility] cardiology. Overall patient is doing hemodynamically okay. Absence of any chest pain. Denies any cardiac symptoms (3) Elevated troponin: Plan: Likely secondary to demand ischemia. Continue to monitor. ECHO: Mild global hypokinesis, EF 45 to 50%, grade 1 diastolic dysfunction, mild mitral stenosis. (4) NSVT (nonsustained ventricular tachycardia): Plan: Home Toprol 12.5mg qHS was increased to BID this admission. Monitor and replace electrolytes as needed. No more episode of NSVT Denies any more cardiac symptoms (5) Leg wound, left: Plan: Wound care consulted Continue wound care (6) CKD (chronic kidney disease), stage III: Plan: renal function is currently at baseline. Monitor BMP in am with intermittent furosemide. Monitor PRP-creatinine remains stable (7) History of CVA (cerebrovascular accident): Plan: Continue aspirin, statin (8) History of stent insertion of renal artery: (9) History of right common carotid artery stent placement: Plan: -Continue ASA, Plavix, statin (10) Hypertension: Plan: Controlled on current therapy. (11) Hypothyroidism: Plan: -Continue levothyroxine per home regimen. (12) DVT prophylaxis: Plan: -SQ Lovenox Full Code Dispo- Cont PCU. Admission and Anticipated Discharge Date Admission Date: November 23, 2020 Subjective Doing okay this morning. No new issues. Resting comfortably. Hemodynamically doing fine. At rest he is on 4 L. However later in the day today working with therapy he desaturated and was placed on 6 L. Review of Systems Review of Systems: All systems reviewed & are unremarkable except as noted in HPI & below Physical Exam Physical Exam: General: A&Ox3. HENT: NCAT, MMM, EOMI Eyes: PERRLA Neck: Supple, normal range of motion CVS: normal rate and rhythm Resp: b/l decrease breath sounds Abdomen: Soft, ND/NT Extremities: No c/c/e Neuro: face symmetric, no focal deficit Skin: no rashes/lesions/errythema MSK: no joint swelling/erythema Results & Data Results & Data ([facility]) Vital Signs (Past 12 Hours) Vital Signs Temp Pulse Pulse Pulse Resp BP Pulse Ox 12/12/20 11:42 36.8 C 78 25 H 128/64 96 12/12/20 07:19 36.5 C 91 H 18 139/83 87 L 12/12/20 07:00 81 12/12/20 03:37 36.6 C 70 17 123/67 92
[2020-12-12] MEDS: ENOXAPARIN INJ 40 MG/0.4 ML SYR SQ SCH (17:51)
[2020-12-12] MEDS: ASPIRIN 81 MG ECTAB PO SCH (20:47)
[2020-12-12] MEDS: TERAZOSIN HCL 1 MG CAP PO SCH (20:48)
[2020-12-12] MEDS: amLODIPine BESYLATE 5 MG TAB PO SCH (20:49)
[2020-12-12] MEDS: ROSUVASTATIN CALCIUM 10 MG TAB PO SCH (20:49)
[2020-12-12] MEDS: ACETAMINOPHEN 325 MG TAB PO PRN (20:50)
[2020-12-12] MEDS: FINASTERIDE 5 MG TAB PO SCH (20:50)
[2020-12-12] MEDS: LATANOPROST 0.005% OP SOLN 2.5 ML BTL OPB SCH (20:51)
[2020-12-13] MEDS: LEVOTHYROXINE SODIUM 150 MCG TABLET PO SCH (06:29)
[2020-12-13] MEDS: FLUTICASONE FUROATE 100MCG 14 PUFFS/INHALER INH SCH (08:27)
[2020-12-13] MEDS: GABAPENTIN 300 MG CAP PO SCH ×3 (08:28→20:24)
[2020-12-13] MEDS: DOCUSATE SODIUM 100 MG CAP PO SCH ×2 (08:29→20:24)
[2020-12-13] MEDS: CLOPIDOGREL BISULFATE 75 MG TAB PO SCH (08:29)
[2020-12-13] MEDS: METOPROLOL SUCC 25MG EXT REL TAB PO SCH ×2 (08:30→20:23)
[2020-12-13] MEDS: LOSARTAN POTASSIUM 50 MG TAB PO SCH (08:30)
[2020-12-13] MEDS: SENNA 8.6 MG TAB PO SCH (08:31)
[2020-12-13] MEDS: PANTOprazole 40 MG TAB PO SCH (08:31)
[2020-12-13] MEDS: TIMOLOL MALEATE 0.5% OP SOLN 5 ML BTL OPB SCH ×2 (08:33→20:25)
--- NOTE | 2020-12-13 14:27 | Hospitalist Progress Note ---
Date of Service December 13, 2020 Assessment & Plan (1) Acute respiratory failure due to COVID-19: Plan: Completed course of remdesivir and continues on Decadron at this point. He is still requiring a lower amount of oxygen supplementation and this is improved. Asymptomatic. Off isolation once bed is available and he can have visitors. Awaiting placement hopefully this week. (2) Pneumonia due to COVID-19 virus: Plan: Treatment as above. (3) Coronary artery disease: Plan: History of renal artery stenosis status post stent in 2004, also history of carotid artery stent following which he had a small stroke affecting his right eye. In 2009 he had a cardiac catheterization showing nonocclusive coronary disease. Follows with [facility] cardiology. Stable. Cont medical management with aspirin, statin, BB, Losartan and Plavix. (4) Non-ischemic myocardial injury (non-traumatic): Plan: Elevated troponin likely related to demand ischemia in setting of acute infection. No ACS. (5) NSVT (nonsustained ventricular tachycardia): Plan: Cont Toprol BID Monitor and replace electrolytes as needed. NSR on telemetry overnight. (6) Leg wound, left: Plan: Wound care consulted Continue wound care (7) CKD (chronic kidney disease), stage III: Plan: renal function is currently at baseline. Monitor BMP in am with intermittent furosemide. Monitor PRP-creatinine remains stable (8) History of CVA (cerebrovascular accident): Plan: Continue aspirin, statin (9) History of stent insertion of renal artery: (10) History of right common carotid artery stent placement: Plan: -Continue medical management with ASA, Plavix, statin (11) Hypertension: Plan: Controlled on current therapy. (12) Hypothyroidism: Plan: -Continue levothyroxine per home regimen. (13) DVT prophylaxis: Plan: -SQ Lovenox Full Code Dispo- Cont PCU. Ninoska David DO [facility] Hospitalist Admission and Anticipated Discharge Date Admission Date: November 23, 2020 Subjective 80 yo M admitted with covid pneumonia doing well today, denies issues with SOB. Is on less oxygen supplementation than last week Generalized weakness and feels he is deconditioned. Deniess CP, pain, or other issues Tolerating PO Review of Systems Review of Systems: All systems were reviewed and negative except as indicated in subjective above. Physical Exam Physical Exam: CONSTITUTIONAL: WNWD, vitals as above, generally well-appearing, NAD EYES: normal conjunctivae, no scleral icterus ENT: external ear and nose normal, MMM NECK: trachea midline RESPIRATORY: clear to auscultation bilaterally, no crackles, rales or wheezes, normal respiratory effort, supplemental nasal canula (green catheter) in place CARDIOVASCULAR: regular rate and rhythm, S1 and 2 heard without murmurs, gallops or rubs, no JVD, no peripheral edema CHEST: inspection of chest was normal GASTROINTESTINAL: soft, nontender, ND, no guarding MUSCULOSKELETAL: strength 5/5 throughout, head is normocephalic and atraumatic SKIN: warm and dry NEUROLOGIC: CN 2-12 grossly intact, normal cognition, normal speech, no tremor, no gross focal deficit. PSYCHIATRIC: alert cooperative and oriented to person, place and time. Results & Data Results & Data ([facility]) Vital Signs (Past 12 Hours) Vital Signs Temp Pulse Pulse Resp BP BP Pulse Ox 12/13/20 14:00 79 25 H 96 12/13/20 11:26 36.8 C 77 24 114/57 L 95 12/13/20 10:00 90 25 H 96 12/13/20 08:00 36.7 C 79 21 120/75 95 12/13/20 07:00 36.9 C 91 H 25 H 161/75 H 88 L 12/13/20 04:22 79 12/13/20 03:58 37.1 C 77 14 132/67 Medications Administered Current Inpatient Medications Acetaminophen (Acetaminophen 325 Mg Tab) 650 mg PO Q4H PRN PRN Reason: Pain or Fever Stop: 12/23/20 17:58 Last Admin: 12/12/20 20:50 Dose: 650 mg Documented by: Amlodipine Besylate (Amlodipine Besylate 5 Mg Tab) 5 mg PO HS [facility] Stop: 12/23/20 20:59 Last Admin: 12/12/20 20:49 Dose: 5 mg Documented by: Amlodipine Besylate (Amlodipine Besylate 5 Mg Tab) 5 mg PO HS PRN PRN Reason: systolic 160 or greater Stop: 12/23/20 18:39 Aspirin (Aspirin 81 Mg Ectab) 81 mg PO HS [facility] Stop: 12/24/20 20:59 Last Admin: 12/12/20 20:47 Dose: 81 mg Documented by: Clopidogrel Bisulfate (Clopidogrel Bisulfate 75 Mg Tab) 75 mg PO Q2D@0900 [facility] Stop: 12/25/20 08:59 Last Admin: 12/13/20 08:29 Dose: 75 mg Documented by: Docusate Sodium (Docusate Sodium 100 Mg Cap) 100 mg PO BID [facility] Stop: 01/01/21 12:14 Last Admin: 12/13/20 08:29 Dose: 100 mg Documented by: Enoxaparin Sodium (Enoxaparin Inj 40 Mg/0.4 Ml Syr) 40 mg SQ Q24H [facility] Stop: 12/23/20 18:59 Last Admin: 12/12/20 17:51 Dose: 40 mg Documented by: Finasteride (Finasteride 5 Mg Tab) 5 mg PO [facility]; Protocol Stop: 12/23/20 20:59 Last Admin: 12/12/20 20:50 Dose: 5 mg Documented by: Fluticasone Furoate (Fluticasone Furoate 100mcg 14 Puffs/Inhaler) 1 puffs INH QAM [facility] Stop: 12/24/20 08:59 Last Admin: 12/13/20 08:27 Dose: 1 puffs Documented by: Gabapentin (Gabapentin 300 Mg Cap) 300 mg PO TID [facility] Stop: 12/23/20 20:59 Last Admin: 12/13/20 08:28 Dose: 300 mg Documented by: Ipratropium [place] (Ipratropium [place] Neb Soln 0.02% 2.5 Ml Vial) 0.5 mg INH Q4H PRN PRN Reason: SOB OR WHEEZING Stop: 12/23/20 23:44 Ipratropium [place] (Ipratropium [place] Neb Soln 0.02% 2.5 Ml Vial) 0.5 mg INH Q4H PRN PRN Reason: SOB/WHEEZING Stop: 12/27/20 00:59 Latanoprost (Latanoprost 0.005% Op Soln 2.5 Ml Btl) 1 drops OPB [facility] Stop: 12/23/20 20:59 Last Admin: 12/12/20 20:51 Dose: 1 drops Documented by: Levalbuterol HCl (Levalbuterol 1.25mg/0.5ml Neb) 1.25 mg INH Q4H PRN PRN Reason: SOB OR WHEEZING Stop: 12/23/20 23:44 Last Admin: 11/29/20 01:03 Dose: 1.25 mg Documented by: Levalbuterol HCl (Levalbuterol 1.25mg/0.5ml Neb) 1.25 mg INH Q4H PRN PRN Reason: SOB/WHEEZING Stop: 12/27/20 00:59 Levothyroxine Sodium (Levothyroxine Sodium 150 Mcg Tablet) 150 mcg PO DAILYBB [facility] Stop: 12/24/20 06:29 Last Admin: 12/13/20 06:29 Dose: 150 mcg Documented by: Losartan Potassium (Losartan Potassium 50 Mg Tab) 50 mg PO DAILY [facility] Stop: 12/28/20 11:44 Last Admin: 12/13/20 08:30 Dose: 50 mg Documented by: Metoprolol Succinate (Metoprolol Succ 25mg Ext Rel Tab) 12.5 mg PO BID [facility] Stop: 12/25/20 16:29 Last Admin: 12/13/20 08:30 Dose: 12.5 mg Documented by: Oxymetazoline HCl (Oxymetazoline 0.05% 30 Ml Btl) 2 sprays NA BID PRN PRN Reason: epistaxis Stop: 01/01/21 20:44 Last Admin: 12/04/20 20:03 Dose: 2 sprays Documented by: Pantoprazole Sodium (Pantoprazole 40 Mg Tab) 40 mg PO DAILY [facility]; Protocol Stop: 12/24/20 08:59 Last Admin: 12/13/20 08:31 Dose: 40 mg Documented by: Polyethylene Glycol (Polyethylene (Miralax) 17 Gm Pack) 17 gm PO DAILY PRN PRN Reason: Constipation Stop: 01/01/21 12:10 Rosuvastatin Calcium (Rosuvastatin Calcium 10 Mg Tab) 10 mg PO HS [facility] Stop: 12/23/20 20:59 Last Admin: 12/12/20 20:49 Dose: 10 mg Documented by: Sennosides (Senna 8.6 Mg Tab) 17.2 mg PO QAM [facility] Stop: 01/01/21 12:14 Last Admin: 12/13/20 08:31 Dose: 17.2 mg Documented by: Sodium Chloride (Sodium Chloride 0.65% Na Soln 45 Ml ([place])) 2 sprays NA TID PRN PRN Reason: Nasal Congestion Stop: 01/01/21 20:44 Last Admin: 12/03/20 06:32 Dose: 2 sprays Documented by: Terazosin HCl (Terazosin Hcl 1 Mg Cap) 2 mg PO HS [facility] Stop: 12/23/20 20:59 Last Admin: 12/12/20 20:48 Dose: 2 mg Documented by: Timolol Maleate (Timolol Maleate 0.5% Op Soln 5 Ml Btl) 1 drops OPB BID [facility] Stop: 12/24/20 20:59 Last Admin: 12/13/20 08:33 Dose: 1 drops Documented by:
[2020-12-13] MEDS: ACETAMINOPHEN 325 MG TAB PO PRN (20:22)
[2020-12-13] MEDS: ENOXAPARIN INJ 40 MG/0.4 ML SYR SQ SCH (20:22)
[2020-12-13] MEDS: amLODIPine BESYLATE 5 MG TAB PO SCH (20:22)
[2020-12-13] MEDS: TERAZOSIN HCL 1 MG CAP PO SCH (20:23)
[2020-12-13] MEDS: ROSUVASTATIN CALCIUM 10 MG TAB PO SCH (20:23)
[2020-12-13] MEDS: ASPIRIN 81 MG ECTAB PO SCH (20:23)
[2020-12-13] MEDS: FINASTERIDE 5 MG TAB PO SCH (20:24)
[2020-12-13] MEDS: LATANOPROST 0.005% OP SOLN 2.5 ML BTL OPB SCH (20:25)
[2020-12-14] MEDS: LEVOTHYROXINE SODIUM 150 MCG TABLET PO SCH (05:53)
[2020-12-14] MEDS: FLUTICASONE FUROATE 100MCG 14 PUFFS/INHALER INH SCH (08:20)
[2020-12-14] MEDS: DOCUSATE SODIUM 100 MG CAP PO SCH ×2 (08:20→20:14)
[2020-12-14] MEDS: LOSARTAN POTASSIUM 50 MG TAB PO SCH (08:21)
[2020-12-14] MEDS: METOPROLOL SUCC 25MG EXT REL TAB PO SCH ×2 (08:21→20:12)
[2020-12-14] MEDS: GABAPENTIN 300 MG CAP PO SCH ×3 (08:21→20:14)
[2020-12-14] MEDS: PANTOprazole 40 MG TAB PO SCH (08:22)
[2020-12-14] MEDS: SENNA 8.6 MG TAB PO SCH (08:23)
[2020-12-14] MEDS: TIMOLOL MALEATE 0.5% OP SOLN 5 ML BTL OPB SCH ×2 (08:23→20:15)
--- NOTE | 2020-12-14 13:09 | Hospitalist Progress Note ---
Date of Service December 14, 2020 Assessment & Plan (1) Acute respiratory failure due to COVID-19: Plan: Completed course of remdesivir and continues on Decadron at this point. He is still requiring a lower amount of oxygen supplementation and this is improved. Off isolation once bed is available and he can have visitors. Awaiting placement hopefully this week. Per nursing staff he still has episodes of hypoxia wiith exertion, quick recovery noted. (2) Pneumonia due to COVID-19 virus: Plan: Treatment as above. (3) Coronary artery disease: Plan: History of renal artery stenosis status post stent in 2004, also history of carotid artery stent following which he had a small stroke affecting his right eye. In 2009 he had a cardiac catheterization showing nonocclusive coronary disease. Follows with [facility] cardiology. Stable. Cont medical management with aspirin, statin, BB, Losartan and Plavix. (4) Non-ischemic myocardial injury (non-traumatic): Plan: Elevated troponin likely related to demand ischemia in setting of acute infection. No ACS. (5) NSVT (nonsustained ventricular tachycardia): Plan: Cont Toprol BID Monitor and replace electrolytes as needed. NSR on telemetry overnight. (6) Leg wound, left: Plan: Wound care consulted Continue wound care (7) CKD (chronic kidney disease), stage III: Plan: renal function is currently at baseline. Monitor BMP in am with intermittent furosemide. Monitor PRP-creatinine remains stable (8) History of CVA (cerebrovascular accident): Plan: Continue aspirin, statin (9) History of stent insertion of renal artery: (10) History of right common carotid artery stent placement: Plan: -Continue medical management with ASA, Plavix, statin (11) Hypertension: Plan: Controlled on current therapy. (12) Hypothyroidism: Plan: -Continue levothyroxine per home regimen. (13) DVT prophylaxis: Plan: -SQ Lovenox Full Code Dispo- Cont PCU. Ninoska David DO [facility] Hospitalist Admission and Anticipated Discharge Date Admission Date: November 23, 2020 Subjective 80 yo M admitted with covid pneumonia doing well today, denies issues with SOB. Some epistaxis this am when he was "cleaning my nose by rolling up a tissue and sticking it up in there" Self-limited and has resolved Remains on hi flow oxygen (green canula) Reports an increase in sputum production today Denies cough, fevers, chills Review of Systems Review of Systems: All systems were reviewed and negative except as indicated in subjective above. Physical Exam Physical Exam: CONSTITUTIONAL: WNWD, vitals as above, generally well- appearing, NAD EYES: normal conjunctivae, no scleral icterus ENT: external ear and nose normal, MMM NECK: trachea midline RESPIRATORY: clear to auscultation bilaterally, no crackles, rales or wheezes, normal respiratory effort, supplemental nasal canula (green catheter) in place CARDIOVASCULAR: regular rate and rhythm, S1 and 2 heard without murmurs, gallops or rubs, no JVD, no peripheral edema CHEST: inspection of chest was normal GASTROINTESTINAL: soft, nontender, ND, no guarding MUSCULOSKELETAL: strength 5/5 throughout, head is normocephalic and atraumatic SKIN: warm and dry NEUROLOGIC: CN 2-12 grossly intact, normal cognition, normal speech, no tremor, no gross focal deficit. PSYCHIATRIC: alert cooperative and oriented to person, place and time. Results & Data Results & Data ([facility]) Vital Signs (Past 12 Hours) Vital Signs Temp Pulse Pulse Resp BP BP Pulse Ox 12/14/20 11: 36.8 C 87 19 143/69 H 91 12/14/20 09:00 82 12/14/20 08:00 36.4 C L 80 20 150/85 H 92 12/14/20 05:51 24 86 L 12/14/20 04:42 36.5 C 81 14 163/72 H 92 12/14/20 01:17 EST 83 Medications Administered Current Inpatient Medications Acetaminophen (Acetaminophen 325 Mg Tab) 650 mg PO Q4H PRN PRN Reason: Pain or Fever Stop: 12/23/20 17:58 Last Admin: 12/13/20 20:22 Dose: 650 mg Documented by: Amlodipine Besylate (Amlodipine Besylate 5 Mg Tab) 5 mg PO HS [place] Stop: 12/23/20 20:59 Last Admin: 12/13/20 20:22 Dose: 5 mg Documented by: Amlodipine Besylate (Amlodipine Besylate 5 Mg Tab) 5 mg PO HS PRN PRN Reason: systolic 160 or greater Stop: 12/23/20 18:39 Aspirin (Aspirin 81 Mg Ectab) 81 mg PO HS [place] Stop: 12/24/20 20:59 Last Admin: 12/13/20 20:23 Dose: 81 mg Documented by: Clopidogrel Bisulfate (Clopidogrel Bisulfate 75 Mg Tab) 75 mg PO Q2D@0900 [facility] Stop: 12/25/20 08:59 Last Admin: 12/13/20 08:29 Dose: 75 mg Documented by: Docusate Sodium (Docusate Sodium 100 Mg Cap) 100 mg PO BID [facility] Stop: 01/01/21 12:14 Last Admin: 12/14/20 08:20 Dose: 100 mg Documented by: Enoxaparin Sodium (Enoxaparin Inj 40 Mg/0.4 Ml Syr) 40 mg SQ Q24H [facility] Stop: 12/23/20 18:59 Last Admin: 12/13/20 20:22 Dose: 40 mg Documented by: Finasteride (Finasteride 5 Mg Tab) 5 mg PO [facility]; Protocol Stop: 12/23/20 20:59 Last Admin: 12/13/20 20:24 Dose: 5 mg Documented by: Fluticasone Furoate (Fluticasone Furoate 100mcg 14 Puffs/Inhaler) 1 puffs INH QAM [facility] Stop: 12/24/20 08:59 Last Admin: 12/14/20 08:20 Dose: 1 puffs Documented by: Gabapentin (Gabapentin 300 Mg Cap) 300 mg PO TID [facility] Stop: 12/23/20 20:59 Last Admin: 12/14/20 08:21 Dose: 300 mg Documented by: Ipratropium [place] (Ipratropium [place] Neb Soln 0.02% 2.5 Ml Vial) 0.5 mg INH Q4H PRN PRN Reason: SOB OR WHEEZING Stop: 12/23/20 23:44 Ipratropium [place] (Ipratropium [place] Neb Soln 0.02% 2.5 Ml Vial) 0.5 mg INH Q4H PRN PRN Reason: SOB/WHEEZING Stop: 12/27/20 00:59 Latanoprost (Latanoprost 0.005% Op Soln 2.5 Ml Btl) 1 drops OPB HS [facility] Stop: 12/23/20 20:59 Last Admin: 12/13/20 20:25 Dose: 1 drops Documented by: Levalbuterol HCl (Levalbuterol 1.25mg/0.5ml Neb) 1.25 mg INH Q4H PRN PRN Reason: SOB OR WHEEZING Stop: 12/23/20 23:44 Last Admin: 11/29/20 01:03 Dose: 1.25 mg Documented by: Levalbuterol HCl (Levalbuterol 1.25mg/0.5ml Neb) 1.25 mg INH Q4H PRN PRN Reason: SOB/WHEEZING Stop: 12/27/20 00:59 Levothyroxine Sodium (Levothyroxine Sodium 150 Mcg Tablet) 150 mcg PO DAILYBB [facility] Stop: 12/24/20 06:29 Last Admin: 12/14/20 05:53 Dose: 150 mcg Documented by: Losartan Potassium (Losartan Potassium 50 Mg Tab) 50 mg PO DAILY [facility] Stop: 12/28/20 11:44 Last Admin: 12/14/20 08:21 Dose: 50 mg Documented by: Metoprolol Succinate (Metoprolol Succ 25mg Ext Rel Tab) 12.5 mg PO BID [facility] Stop: 12/25/20 16:29 Last Admin: 12/14/20 08:21 Dose: 12.5 mg Documented by: Oxymetazoline HCl (Oxymetazoline 0.05% 30 Ml Btl) 2 sprays NA BID PRN PRN Reason: epistaxis Stop: 01/01/21 20:44 Last Admin: 12/04/20 20:03 Dose: 2 sprays Documented by: Pantoprazole Sodium (Pantoprazole 40 Mg Tab) 40 mg PO DAILY [facility]; Protocol Stop: 12/24/20 08:59 Last Admin: 12/14/20 08:22 Dose: 40 mg Documented by: Polyethylene Glycol (Polyethylene (Miralax) 17 Gm Pack) 17 gm PO DAILY PRN PRN Reason: Constipation Stop: 01/01/21 12:10 Rosuvastatin Calcium (Rosuvastatin Calcium 10 Mg Tab) 10 mg PO HS [facility] Stop: 12/23/20 20:59 Last Admin: 12/13/20 20:23 Dose: 10 mg Documented by: Sennosides (Senna 8.6 Mg Tab) 17.2 mg PO QAM [place] Stop: 01/01/21 12:14 Last Admin: 12/14/20 08:23 Dose: 17.2 mg Documented by: Sodium Chloride (Sodium Chloride 0.65% Na Soln 45 Ml ([place])) 2 sprays NA TID PRN PRN Reason: Nasal Congestion Stop: 01/01/21 20:44 Last Admin: 12/03/20 06:32 Dose: 2 sprays Documented by: Terazosin HCl (Terazosin Hcl 1 Mg Cap) 2 mg PO HS [place] Stop: 12/23/20 20:59 Last Admin: 12/13/20 20:23 Dose: 2 mg Documented by: Timolol Maleate (Timolol Maleate 0.5% Op Soln 5 Ml Btl) 1 drops OPB BID [place] Stop: 12/24/20 20:59 Last Admin: 12/14/20 08:23 Dose: 1 drops Documented by:
[2020-12-14] MEDS: ENOXAPARIN INJ 40 MG/0.4 ML SYR SQ SCH (20:12)
[2020-12-14] MEDS: ACETAMINOPHEN 325 MG TAB PO PRN (20:12)
[2020-12-14] MEDS: ASPIRIN 81 MG ECTAB PO SCH (20:13)
[2020-12-14] MEDS: amLODIPine BESYLATE 5 MG TAB PO SCH (20:13)
[2020-12-14] MEDS: FINASTERIDE 5 MG TAB PO SCH (20:14)
[2020-12-14] MEDS: ROSUVASTATIN CALCIUM 10 MG TAB PO SCH (20:15)
[2020-12-14] MEDS: TERAZOSIN HCL 1 MG CAP PO SCH (20:15)
[2020-12-14] MEDS: LATANOPROST 0.005% OP SOLN 2.5 ML BTL OPB SCH (20:15)
[2020-12-15] MEDS: LEVOTHYROXINE SODIUM 150 MCG TABLET PO SCH (06:03)
[2020-12-15 08:32] LABS: Hematocrit (blood only) 37.1 % (42-52); Hemoglobin 12.3 g/dL (14.0-18.0); Mean Corpuscular Hemoglobin 31.3 pg (25-34); Mean Corpuscular Hgb Conc 33.2 g/dL (32-36); Mean Corpuscular Volume 94.4 fL (80-100); Mean Platelet Volume 9.1 fL (7.4-10.4); Platelet Count 237 K/uL (130-400); RDW Coefficient of Variation 13.5 % (11.5-14.5); Red Blood Count 3.93 M/uL (4.7-6.1); White Blood Count 6.16 K/uL (4.8-10.8)
[2020-12-15 09:04] LABS: Calcium 8.7 mg/dl (8.5-10.1); Est GFR (African American) 86.2 ml/min; Est GFR (Non-African American) 74.4 ml/min; Potassium 3.9 mmol/L (3.5-5.1)
[2020-12-15] MEDS: CLOPIDOGREL BISULFATE 75 MG TAB PO SCH (09:28)
[2020-12-15] MEDS: SENNA 8.6 MG TAB PO SCH (09:28)
[2020-12-15] MEDS: METOPROLOL SUCC 25MG EXT REL TAB PO SCH (09:28)
[2020-12-15] MEDS: PANTOprazole 40 MG TAB PO SCH (09:29)
[2020-12-15] MEDS: GABAPENTIN 300 MG CAP PO SCH ×2 (09:29→15:47)
[2020-12-15] MEDS: LOSARTAN POTASSIUM 50 MG TAB PO SCH (09:29)
[2020-12-15] MEDS: DOCUSATE SODIUM 100 MG CAP PO SCH (09:29)
[2020-12-15] MEDS: FLUTICASONE FUROATE 100MCG 14 PUFFS/INHALER INH SCH (09:30)
[2020-12-15] MEDS: TIMOLOL MALEATE 0.5% OP SOLN 5 ML BTL OPB SCH (09:31)
[2020-12-15 12:43] VITALS: BP 138/59; PULSE 80; TEMP 98.1; O2SAT 95
--- NOTE | 2020-12-26 13:42 | Discharge Summary ---
Date of Service December 26, 2020 Admission HPI Per Admitting Provider 80-year-old male with PMH HTN, history of CVA, renal artery stenosis s/p stenting, retinal artery occlusion, chronic LBBB, carotid stenosis, nonobstructive CAD per cardiac cath 2009, CKD stage III, BPH, and other problems listed below who presents to the ED for evaluation of weakness and hemoptysis. Patient diagnosed with COVID-19 on 11/17. Noted that patient is fully vaccinated. He reports generalized weakness, fevers of up to 104, exertional shortness of breath, and cough. Patient reports that for the past couple of days, he has had a small amount of blood in his sputum. He also has a home pulse oximeter and reports that oxygen level was 87% at rest this morning. Patient denies chest pain. He reports feeling lightheaded and dizzy however no syncopal event. He has had a poor appetite however denies abdominal pain, nausea, vomiting, diarrhea. No urinary symptoms. In the ED, patient is saturating >90% on room air. Labs show troponin 0.103, EKG shows an unchanged LBBB. CTA chest negative for pulmonary embolism however does show signs of viral pneumonia. Patient was given a full dose aspirin, calcium and potassium replacement, IV dexamethasone 6 mg, IVF. Admission Exam Per Admitting Provider Constitutional: WD/WN, vitals as above Eyes: PERRL, conjunctivae normal, anicteric sclerae ENMT: external ear and nose normal, oropharynx normal Respiratory: normal respiratory effort; no respiratory distress Auscultation: + diminished lung sounds (BL) Cardiovascular: Rate/Rhythm: regular rate and regular rhythm Vessels: normal peripheral pulses Extremities: + edema (+1-2 edema BLE) Gastrointestinal (Abdomen): normal bowel sounds, soft, nontender, no hepatosplenomegaly Musculoskeletal: no cyanosis or clubbing, extremities motor strength 5/5 Skin: no rashes, warm and dry LLE wrapped - reported wound Neurologic: PERRL, EOMI, accommodation nl, no face palsy, no dysarthria Psychiatric: A+Ox3, euthymic affect Principal Diagnosis 25 Discharge Exam General: A&Ox3. HENT: NCAT, MMM, EOMI Eyes: PERRLA Neck: Supple, normal range of motion CVS: normal rate and rhythm Resp: b/l decrease breath sounds Abdomen: Soft, ND/NT Extremities: No c/c/e Neuro: face symmetric, no focal deficit Skin: no rashes/lesions/errythema MSK: no joint swelling/erythema Discharge Data Allergies Allergy/AdvReac Type Severity Reaction Status Date / Time fentanyl Allergy Mild ?RASH Verified 11/23/20 11:37 propofol Allergy Unknown ?RASH Verified 11/23/20 11:37 Consultations 11/23/20 13:04 ED Decision to Admit Stat Ordered Studies 11/23/20 10:16 CT angio chest PE protocol Stat Hospital Course (1) Acute respiratory failure due to COVID-19: Patient glucose of remdesivir and Decadron to this hospitalization. On the day of discharge patient was doing okay. Hemodynamically was stable. Patient was discharged in stable condition. (2) Pneumonia due to COVID-19 virus: Treatment as above. (3) Coronary artery disease: History of renal artery stenosis status post stent in 2004, also history of carotid artery stent following which he had a small stroke affecting his right eye. In 2009 he had a cardiac catheterization showing nonocclusive coronary disease. Follows with [facility] cardiology. Stable. Cont medical management with aspirin, statin, BB, Losartan and Plavix. (4) Non-ischemic myocardial injury (non-traumatic): Elevated troponin likely related to demand ischemia in setting of acute infection. No ACS. (5) NSVT (nonsustained ventricular tachycardia): Cont Toprol BID Monitor and replace electrolytes as needed. NSR on telemetry overnight. (6) Leg wound, left: Wound care consulted Continue wound care (7) CKD (chronic kidney disease), stage III: renal function is currently at baseline. Monitor BMP in am with intermittent furosemide. Monitor PRP-creatinine remains stable (8) History of CVA (cerebrovascular accident): Continue aspirin, statin (9) History of stent insertion of renal artery: (10) History of right common carotid artery stent placement: -Continue medical management with ASA, Plavix, statin (11) Hypertension: Controlled on current therapy. (12) Hypothyroidism: -Continue levothyroxine per home regimen. Total Time Total Time Spent Total Time Spent (In Minutes): 25 Discharge Plan Discharge Items Patient Disposition: Transfer Inpatient Rehab Fac Reason For Visit: COVID PNEUMONIA Discharge Diagnosis: COVID Activity: Resume your previous activity Non-emergency contact: Primary Care Provider Call non-emergency contact if: your symptoms worsen Follow-up/Referrals: Jose Ramirez [Primary Care Provider] - Diet: Heart Healthy Addtl Attending Provider Instructions: Your heart function was found to been newly reduced to <50%. This is abnormal and will require a follow-up echocardiogram within the next couple of weeks. Please have your primary care physician coordinate this. If you persistently have a low function, a repeat evaluation in the [facility] Cardiology office would be recommended. Pending Studies at Discharge: No Stand-Alone Forms: My [facility] Skilled Items Patient informed of condition?: No DNR: No Discharge Level of Care: Skilled Communicable Disease: Yes Discharge Prognosis: Stable Lines: None Urinary Catheter: No Medications and DC Order Prescriptions: Continued nitroglycerin [Nitrostat] 0.4 mg tablet, sublingual 0.4 mg [address] .PL[address] 1 TABLET UNDER PRN (Reason: Chest Pain) Qty: 1 RF: 0 multivitamin Tablet 1 tab PO QAM RF: 0 latanoprost [Xalatan] 0.005 % drops 1 drp OPB HS RF: 0 acetaminophen [Acetaminophen Extra Strength] 500 mg Tablet 500 mg PO QAM RF: 0 calcium carbonate [Calcium 600] 600 mg calcium (1,500 mg) Tablet 600 mg PO QAM RF: 0 levothyroxine 150 mcg tablet 150 mcg PO QAM RF: 0 gabapentin [Neurontin] 300 mg capsule 300 mg PO TID RF: 0 omeprazole 20 mg capsule,delayed release(DR/EC) 20 mg PO DAILYBB RF: 0 dutasteride [Avodart] 0.5 mg capsule 0.5 mg PO HS RF: 0 cholecalciferol (vitamin D3) 50,000 unit capsule 50,000 unit PO MONTHLY RF: 0 omega [id number] oil [Fish Oil] 360-1,200 mg Capsule,Delayed Release(Dr/Ec) 1 cap PO QAM RF: 0 clopidogrel [Plavix] 75 mg tablet 75 mg PO Q2D@0900 RF: 0 amlodipine [Norvasc] 5 mg tablet 5 mg PO HS RF: 0 furosemide [Lasix] 20 mg tablet 20 mg PO QAM RF: 0 albuterol sulfate [ProAir HFA] 90 mcg/actuation HFA aerosol inhaler 2 puff INHALATION QID PRN (Reason: Shortness Of Breath Or Wheezing) RF: 0 terazosin 2 mg capsule 2 mg PO HS RF: 0 metoprolol succinate [Toprol XL] 25 mg tablet extended release 24 hr 12.5 mg PO HS RF: 0 rosuvastatin [Crestor] 10 mg tablet 10 mg PO HS RF: 0 aspirin 81 mg Tablet,Delayed Release (Dr/Ec) 81 mg PO HS RF: 0 ascorbic acid (vitamin C) 500 mg Tablet 500 mg PO BID RF: 0 cholecalciferol (vitamin D3) [Vitamin D3] 25 mcg (1,000 unit) Capsule 25 mcg PO BID RF: 0 losartan 50 mg tablet 50 mg PO DAILY RF: 0 Discharge Orders: Discharge Order (Routine); Ordered 12/15/20 Ordered By: Doreen Johnston Admission Data Admit Date/Time: 11/23/20 12:50 Attending Provider: Doreen Johnston Admit Provider: Dhiraj Sanchez Primary Care Provider: Jose Ramirez Other Providers: Doreen Johnston ; [facility] Other Interventions: Discharge Summary Assessment (RN) Last Done: 12/15/20 15:34
== END 2020-12-15 16:43 | DRG 177 ==
LOC: ED 09:40 → 2E 12:50 → SUATTDRO 12:50 → 2E 17:37